=== PATIENT | male | born 1965 | race Caucasian/White ===

== ENCOUNTER 2018-10-30 16:29 | Inpatient (IN) ==
[2018-10-30 17:39] LABS: Basophils # (auto) 0.01 K/uL (0-0.2); Basophils % (auto) 0.2 %; Eosinophils # (auto) 0.16 K/uL (0-0.5); Eosinophils % (auto) 3.1 %; Hematocrit (blood only) 36.4 % (42-52); Hemoglobin 11.4 g/dL (14.0-18.0); Immature Granulocytes # (auto) 0.03 K/uL (0.00-0.02); Immature Granulocytes % (auto) 0.6 %; Lymphocytes # (auto) 1.36 K/uL (1.2-3.4); Lymphocytes % (auto) 26.4 %; Mean Corpuscular Hgb Conc 31.3 g/dL (32-36); Mean Corpuscular Volume 88.6 fL (80-100); Mean Platelet Volume 9.9 fL (7.4-10.4); Monocytes # (auto) 0.73 K/uL (0.11-0.59); Monocytes % (auto) 14.2 %; Neutrophils # (auto) 2.86 K/uL (1.4-6.5); Neutrophils % (auto) 55.5 %; Platelet Count 141 K/uL (130-400); RDW Coefficient of Variation 13.5 % (11.5-14.5); RDW Standard Deviation 43.8 fL (36.4-46.3); Red Blood Count 4.11 M/uL (4.7-6.1); White Blood Count 5.15 K/uL (4.8-10.8)
--- NOTE | 2018-10-30 17:40 | XRay Report ---
XR chest 1V portable HISTORY: 53 years-old Male Dyspnea acute shortness of breath COMPARISON: Chest radiograph 09/30/2015 TECHNIQUE: Portable AP view the chest FINDINGS: Cardiac silhouette is enlarged, unchanged. Prior median sternotomy. Left subclavian pacer is noted wi th leads overlying the expected locations of the right atrium and right ventricle. No pneumothorax. M ild pulmonary vascular congestion. Ill-defined left basilar opacities are noted. Degenerative changes of the shoulders and spine. IMPRESSION: 1. Cardiomegaly without overt pulmonary edema. 2. Left basilar opacities suggest atelectasis with pneumonitis considered less likely. The above report was generated using voice recognition software. It may contain grammatical, syntax o r spelling errors. Electronically signed by: Seymour Paige M.D. 10/30/2018 5:39 PM
--- NOTE | 2018-10-30 17:45 | Emergency Department Note ---
Entered by Veronica Gutierrez acting as a scribe for Artemio Mosley MD ED Provider Note CHIEF COMPLAINT: Shortness of breath/dyspnea HISTORY OF PRESENT ILLNESS: The patient came in by ambulance because of shortness of breath associated with chest pain, diaphoresis, fevers, headaches, dizziness, abdomen pain and decreased energy. The patient has lower leg swelling. He is coming from the [facility]. The staff was concerned because his blood pressure was 100/54 and his oxygen saturation was 94%. They were concerned about pneumonia. The patient is a 53 year old male who presents to the Emergency Room with complaints of constant shortness of breath that started last night. The patient reports his breathing is off and cannot walk because of shortness of breath and chest pain. He states he felt his chest pain twice last night and 4 times this morning. The patient reports his legs have been swollen since last night. He notes he feels weak and his back hurts. The patient states he fell down and hit his head. He reports he never had an episode of leg swelling like this before. He states his chest pain is worsened with movement and is better when resting. The patient states he has history of 2 hernia surgeries, CAD, and CABG X3. He reports he was the [facility] for alcohol because he was depressed. He states he has no thoughts of hurting himself. The patient reports he had a headache but no current one. He states he has no fever but feels sweaty. Pt denies LOC, headache, fevers, chills, visual changes, neck pain, nausea, vomiting, diarrhea, eye problems, loss of appetite, abdominal pain, melena, hematochezia, urinary symptoms, numbness, lymphadenopathy, rash, or other complaints. REVIEW OF SYSTEMS: See HPI for pertinent positives and negatives. A total of ten systems were reviewed and were otherwise negative. PMHx/PSHx: Depression Anxiety Bipolar disorder Diabetes Chest wall pain SOCIAL HISTORY: Patient lives at home. PHYSICAL EXAM: GENERAL: Awake, alert, well-appearing, in no distress HENT: Normocephalic, atraumatic. Oropharynx unremarkable. EYES: Normal conjunctiva. Sclera non-icteric. NECK: Inspection normal. Non-tender. Supple. No nuchal rigidity. FROM. No masses. RESPIRATORY: Scattered bronchi. No wheezes. No rales. Normal respiratory effort. CARDIAC: Normal rate. Normal rhythm. No murmurs. No rubs. Extremities warm and well perfused. Pulses equal. No JVD. GI: Soft, non-distended. No tenderness to palpation. No rebound or guarding. No masses. RECTAL: Deferred. MUSCULOSKELETAL: Atraumatic. Chest examination reveals no tenderness. The back is symmetrical on inspection without obvious abnormality. There is no CVA tenderness to palpation. No joint edema. LOWER EXTREMITIES: Calves are equal size bilaterally and non-tender. 2+ edema, slightly worse on the left. No discoloration. NEURO: Normal sensorium. No sensory or motor deficits noted. SKIN: No rash or jaundice noted. EMERGENCY DEPARTMENT COURSE: 1652: Past medical records reviewed. The patient was evaluated in room B4B, and a complete history and physical examination were performed. 1841: I checked on the patient and updated him on results. I discussed coming in to the hospital and he is agreeable. 1909: I reviewed the patient's case with Dr. Malik, [facility] Hospitalist. He will evaluate the patient for further management. MEDICAL DECISION MAKING: Triage Nursing notes reviewed. The patient's presentation and history were concerning for SOB, CP and hx of CAD. Etiologies such as pneumonia, reactive airway disease, CHF, cardiac ischemia, pulmonary embolism, pneumothorax, COPD, musculoskeletal, infections, gastrointestinal, as well as others were entertained. The patient was evaluated. He had coarse breath sounds. He was complaining of feeling short of breath chest pain. He had leg swelling. He notes an allergy to IV dye. The patient had blood work performed. Ultrasound imaging did not reveal any evidence of DVTs. The patient has a chest x-ray that raised concerns for possible pneumonitis as well as cardiomegaly. The patient's BNP is mildly elevated. CBC was unremarkable. Troponin was within normal limits. Chemistry panel was unremarkable. The patient had cultures obtained. He was treated with IV ceftriaxone as he was already taking azithromycin. Patient was also given a dose of IV Lasix 40 mg. Given his complaints of chest pain and history of CAD and CABG he will need further evaluation in the hospital. Consultation was made with internal medicine. The patient was evaluated in the ER for further management. The patient had some mildly low blood pressure. He was given a fluid bolus. His rapid flu returned positive. He was started on Tamiflu. IMPRESSION: Shortness of breath Pneumonitis Substernal chest pain History of coronary artery disease and CABG Influenza PLAN: Admit The scribe's documentation has been prepared under my direction and personally reviewed by me in its entirety. I confirm that the note above accurately reflects all work, treatment, procedures, and medical decision making performed by me. Impression & Plan SOB (shortness of breath), Pneumonitis, Substernal chest pain, History of coronary artery disease, Hx of CABG, Influenza Past Med/Surg History Medical History Depression (Chronic) Anxiety (Chronic) Bipolar disorder (Chronic) Diabetes (Chronic) Chest wall pain (Acute) Pacemaker (Chronic) Surgical History Hx of CABG (Chronic) Family History Other Family history non-contributory Social History Current Living Situation: Other Current Living Situation Comment: lives at the [facility] for 3 weeks Feels Safe at Home: Yes Safety Concerns: Feels Safe At This Time Smoking Status: Former smoker Hx Alcohol Use: Yes (quit drinking 2 years ago) Hx Substance Use: No Beliefs That Will Affect Care: None Preferred Language: Libyan Communication Ability: Effective Results & Data Vital Signs Vital Signs - 24 hr 10/30/18 16:35 10/30/18 16:40 10/30/18 16:48 Temperature 36.7 C Temperature Source Oral Sepsis Recent Fever Within 48 Hours No Sepsis Action Taken by Nursing No Action Required Pulse Rate 69 72 76 Pulse Rate [Apical] Pulse Rhythm Regular Pulse Strength Normal Respiratory Rate 13 16 21 Respiratory Effort / Characteristics Non-Labored Respiratory Depth Normal Respiratory Pattern Regular Blood Pressure 112/62 112/62 Blood Pressure [Left Arm] Blood Pressure [Right Arm] Blood Pressure Mean 78 78 Blood Pressure Mean [Left Arm] Blood Pressure Mean [Right Arm] Blood Pressure Position Sitting Blood Pressure Position [Left Arm] Pulse Oximetry 96 98 Oxygen Delivery Method Room Air 10/30/18 16:50 10/30/18 17:00 10/30/18 17:01 Temperature Temperature Source Sepsis Recent Fever Within 48 Hours Sepsis Action Taken by Nursing Pulse Rate 74 84 Pulse Rate [Apical] Pulse Rhythm Pulse Strength Respiratory Rate 13 16 10 L Respiratory Effort / Characteristics Respiratory Depth Respiratory Pattern Blood Pressure 128/107 H Blood Pressure [Left Arm] Blood Pressure [Right Arm] Blood Pressure Mean 114 Blood Pressure Mean [Left Arm] Blood Pressure Mean [Right Arm] Blood Pressure Position Blood Pressure Position [Left Arm] Pulse Oximetry Oxygen Delivery Method 10/30/18 17:10 10/30/18 17:20 10/30/18 17:30 Temperature Temperature Source Sepsis Recent Fever Within 48 Hours Sepsis Action Taken by Nursing Pulse Rate Pulse Rate [Apical] Pulse Rhythm Pulse Strength Respiratory Rate 22 0 L 0 L Respiratory Effort / Characteristics Respiratory Depth Respiratory Pattern Blood Pressure 95/64 L Blood Pressure [Left Arm] Blood Pressure [Right Arm] Blood Pressure Mean 74 Blood Pressure Mean [Left Arm] Blood Pressure Mean [Right Arm] Blood Pressure Position Blood Pressure Position [Left Arm] Pulse Oximetry Oxygen Delivery Method 10/30/18 17:40 10/30/18 17:50 10/30/18 18:00 Temperature Temperature Source Sepsis Recent Fever Within 48 Hours Sepsis Action Taken by Nursing Pulse Rate Pulse Rate [Apical] Pulse Rhythm Pulse Strength Respiratory Rate 0 L 0 L 0 L Respiratory Effort / Characteristics Respiratory Depth Respiratory Pattern Blood Pressure Blood Pressure [Left Arm] Blood Pressure [Right Arm] Blood Pressure Mean Blood Pressure Mean [Left Arm] Blood Pressure Mean [Right Arm] Blood Pressure Position Blood Pressure Position [Left Arm] Pulse Oximetry Oxygen Delivery Method 10/30/18 18:10 10/30/18 18:20 10/30/18 18:30 Temperature Temperature Source Sepsis Recent Fever Within 48 Hours Sepsis Action Taken by Nursing Pulse Rate Pulse Rate [Apical] Pulse Rhythm Pulse Strength Respiratory Rate 0 L 0 L 0 L Respiratory Effort / Characteristics Respiratory Depth Respiratory Pattern Blood Pressure Blood Pressure [Left Arm] Blood Pressure [Right Arm] Blood Pressure Mean Blood Pressure Mean [Left Arm] Blood Pressure Mean [Right Arm] Blood Pressure Position Blood Pressure Position [Left Arm] Pulse Oximetry Oxygen Delivery Method 10/30/18 18:40 10/30/18 18:50 10/30/18 19:00 Temperature Temperature Source Sepsis Recent Fever Within 48 Hours Sepsis Action Taken by Nursing Pulse Rate Pulse Rate [Apical] Pulse Rhythm Pulse Strength Respiratory Rate 0 L 0 L 0 L Respiratory Effort / Characteristics Respiratory Depth Respiratory Pattern Blood Pressure Blood Pressure [Left Arm] Blood Pressure [Right Arm] Blood Pressure Mean Blood Pressure Mean [Left Arm] Blood Pressure Mean [Right Arm] Blood Pressure Position Blood Pressure Position [Left Arm] Pulse Oximetry 95 Oxygen Delivery Method 10/30/18 19:03 10/30/18 19:04 10/30/18 19:05 Temperature Temperature Source Sepsis Recent Fever Within 48 Hours Sepsis Action Taken by Nursing Pulse Rate Pulse Rate [Apical] 79 Pulse Rhythm Pulse Strength Respiratory Rate 66 H 20 Respiratory Effort / Characteristics Respiratory Depth Respiratory Pattern Blood Pressure 92/56 L Blood Pressure [Left Arm] Blood Pressure [Right Arm] 92/56 L Blood Pressure Mean 68 Blood Pressure Mean [Left Arm] Blood Pressure Mean [Right Arm] 68 Blood Pressure Position Blood Pressure Position [Left Arm] Pulse Oximetry 99 97 96 Oxygen Delivery Method Room Air Room Air 10/30/18 19:08 10/30/18 19:09 10/30/18 19:10 Temperature Temperature Source Sepsis Recent Fever Within 48 Hours Sepsis Action Taken by Nursing Pulse Rate 81 80 78 Pulse Rate [Apical] Pulse Rhythm Pulse Strength Respiratory Rate 14 15 10 L Respiratory Effort / Characteristics Respiratory Depth Respiratory Pattern Blood Pressure 89/57 L 106/67 Blood Pressure [Left Arm] 106/67 Blood Pressure [Right Arm] 89/57 L Blood Pressure Mean 67 80 Blood Pressure Mean [Left Arm] 80 Blood Pressure Mean [Right Arm] 67 Blood Pressure Position Blood Pressure Position [Left Arm] Pulse Oximetry 95 94 93 Oxygen Delivery Method 10/30/18 19:20 10/30/18 19:24 10/30/18 19:27 Temperature Temperature Source Sepsis Recent Fever Within 48 Hours Sepsis Action Taken by Nursing Pulse Rate 81 79 Pulse Rate [Apical] 77 Pulse Rhythm Pulse Strength Respiratory Rate 16 18 14 Respiratory Effort / Characteristics Respiratory Depth Respiratory Pattern Blood Pressure 97/63 L Blood Pressure [Left Arm] 97/63 L Blood Pressure [Right Arm] Blood Pressure Mean 74 Blood Pressure Mean [Left Arm] 74 Blood Pressure Mean [Right Arm] Blood Pressure Position Blood Pressure Position [Left Arm] Pulse Oximetry 95 95 94 Oxygen Delivery Method Room Air 10/30/18 19:30 10/30/18 19:31 10/30/18 19:40 Temperature Temperature Source Sepsis Recent Fever Within 48 Hours Sepsis Action Taken by Nursing Pulse Rate 81 77 77 Pulse Rate [Apical] Pulse Rhythm Pulse Strength Respiratory Rate 17 17 14 Respiratory Effort / Characteristics Respiratory Depth Respiratory Pattern Blood Pressure 87/54 L Blood Pressure [Left Arm] Blood Pressure [Right Arm] Blood Pressure Mean 65 Blood Pressure Mean [Left Arm] Blood Pressure Mean [Right Arm] Blood Pressure Position Blood Pressure Position [Left Arm] Pulse Oximetry 93 95 92 Oxygen Delivery Method 10/30/18 19:45 10/30/18 19:50 10/30/18 21:30 Temperature 36.5 C Temperature Source Oral Sepsis Recent Fever Within 48 Hours Sepsis Action Taken by Nursing Pulse Rate 77 81 Pulse Rate [Apical] 76 Pulse Rhythm Pulse Strength Respiratory Rate 10 L 14 22 Respiratory Effort / Characteristics Non-Labored Spontaneous Respiratory Depth Normal Respiratory Pattern Blood Pressure 98/60 L Blood Pressure [Left Arm] 102/58 L Blood Pressure [Right Arm] Blood Pressure Mean 72 Blood Pressure Mean [Left Arm] 72 Blood Pressure Mean [Right Arm] Blood Pressure Position Blood Pressure Position [Left Arm] Pulse Oximetry 93 95 Oxygen Delivery Method Room Air 10/30/18 21:40 10/30/18 22:52 Temperature 36.4 C L Temperature Source Oral Sepsis Recent Fever Within 48 Hours Sepsis Action Taken by Nursing Pulse Rate Pulse Rate [Apical] 75 Pulse Rhythm Pulse Strength Respiratory Rate 18 Respiratory Effort / Characteristics Non-Labored Spontaneous Non-Labored Respiratory Depth Normal Normal Respiratory Pattern Regular Blood Pressure Blood Pressure [Left Arm] 123/86 Blood Pressure [Right Arm] Blood Pressure Mean Blood Pressure Mean [Left Arm] 98 Blood Pressure Mean [Right Arm] Blood Pressure Position Blood Pressure Position [Left Arm] Lying Pulse Oximetry 91 Oxygen Delivery Method Room Air Room Air Home Medications Current Medication List: was personally reviewed by me Laboratory Data Attestation: I reviewed the patient's lab results. Result diagrams: 10/30/18 17:18 10/30/18 17:18 Lab Results 10/30/18 10/30/18 10/30/18 Range/Units 17:18 17:18 17:18 WBC 5.15 (4.8-10.8) K/uL RBC 4.11 L (4.7-6.1) M/uL Hgb 11.4 L (14.0-18.0) g/dL Hct 36.4 L (42-52) % MCV 88.6 (80-100) fL MCH 27.7 (25-34) pg MCHC 31.3 L (32-36) g/dL RDW Std Deviation 43.8 (36.4-46.3) fL RDW Coeff of Trung 13.5 (11.5-14.5) % Plt Count 141 (130-400) K/uL MPV 9.9 (7.4-10.4) fL Immature Gran % (Auto) 0.6 % Neut % (Auto) 55.5 % Lymph % (Auto) 26.4 % Butler % (Auto) 14.2 % Eos % (Auto) 3.1 % Baso % (Auto) 0.2 % Immature Gran # (Auto) 0.03 H (0.00-0.02) K/uL Neut # (Auto) 2.86 (1.4-6.5) K/uL Lymph # (Auto) 1.36 (1.2-3.4) K/uL Butler # (Auto) 0.73 H (0.11-0.59) K/uL Eos # (Auto) 0.16 (0-0.5) K/uL Baso # (Auto) 0.01 (0-0.2) K/uL PT 12.0 (9.0-12.0) Seconds INR 1.2 H (0.9-1.1) APTT 31.1 H (21.0-31.0) Seconds PTT Ratio 1.2 Sodium 139 (136-145) mmol/L Potassium 3.9 (3.5-5.1) mmol/L Chloride 103 (98-107) mmol/L Carbon Dioxide 32 (21-32) mmol/L Anion Gap 4.0 (3-11) BUN 31 H (7-18) mg/dl Creatinine 1.33 (0.6-1.4) mg/dl Est Cr Clr Drug Dosing 78.5 ml/min Est GFR ( Amer) 70.2 Est GFR (Non-Af Amer) 60.6 BUN/Creatinine Ratio 23.6 H (10-20) Glucose 83 (70-99) mg/dl POC Glucose (70-99) Calcium 8.5 (8.5-10.1) mg/dl Magnesium 1.6 L (1.8-2.4) mg/dl Total Bilirubin 0.2 (0.2-1) mg/dl AST 15 (15-37) U/L ALT 16 (12-78) U/L Alkaline Phosphatase 54 (45-117) U/L Troponin I 0.037 (0-0.045) ng/ml NT-Pro-B Natriuret Pep 967 H (0-900) pg/ml Total Protein 7.0 (6.4-8.2) gm/dl Albumin 3.5 (3.4-5.0) gm/dl Globulin 3.5 (2.5-4.0) gm/dl Albumin/Globulin Ratio 1.0 (0.9-2) Urine Color Urine Appearance (Clear) Urine pH (4.5-7.5) Ur Specific [place] (1.000-1.030) Urine Protein (Negative) Urine Glucose (UA) (Negative) Urine Ketones (Negative) Urine Blood (Negative) Urine Nitrite (Negative) Urine Bilirubin (Negative) Urine Urobilinogen (Negative) Ur Leukocyte Esterase (Negative) Influenza Type A Ag (Neg) Influenza Type A (PCR) (Neg) Influenza Type B Ag (Neg) Influenza Type B (PCR) (Neg) 10/30/18 10/30/18 10/30/18 Range/Units 19:05 21:50 23:00 WBC (4.8-10.8) K/uL RBC (4.7-6.1) M/uL Hgb (14.0-18.0) g/dL Hct (42-52) % MCV (80-100) fL MCH (25-34) pg MCHC (32-36) g/dL RDW Std Deviation (36.4-46.3) fL RDW Coeff of Trung (11.5-14.5) % Plt Count (130-400) K/uL MPV (7.4-10.4) fL Immature Gran % (Auto) % Neut % (Auto) % Lymph % (Auto) % Butler % (Auto) % Eos % (Auto) % Baso % (Auto) % Immature Gran # (Auto) (0.00-0.02) K/uL Neut # (Auto) (1.4-6.5) K/uL Lymph # (Auto) (1.2-3.4) K/uL Butler # (Auto) (0.11-0.59) K/uL Eos # (Auto) (0-0.5) K/uL Baso # (Auto) (0-0.2) K/uL PT (9.0-12.0) Seconds INR (0.9-1.1) APTT (21.0-31.0) Seconds PTT Ratio Sodium (136-145) mmol/L Potassium (3.5-5.1) mmol/L Chloride (98-107) mmol/L Carbon Dioxide (21-32) mmol/L Anion Gap (3-11) BUN (7-18) mg/dl Creatinine (0.6-1.4) mg/dl Est Cr Clr Drug Dosing ml/min Est GFR ( Amer) Est GFR (Non-Af Amer) BUN/Creatinine Ratio (10-20) Glucose (70-99) mg/dl POC Glucose 118 H (70-99) Calcium (8.5-10.1) mg/dl Magnesium (1.8-2.4) mg/dl Total Bilirubin (0.2-1) mg/dl AST (15-37) U/L ALT (12-78) U/L Alkaline Phosphatase (45-117) U/L Troponin I (0-0.045) ng/ml NT-Pro-B Natriuret Pep (0-900) pg/ml Total Protein (6.4-8.2) gm/dl Albumin (3.4-5.0) gm/dl Globulin (2.5-4.0) gm/dl Albumin/Globulin Ratio (0.9-2) Urine Color Yellow Urine Appearance Clear (Clear) Urine pH 5.0 (4.5-7.5) Ur Specific [place] 1.013 (1.000-1.030) Urine Protein Negative (Negative) Urine Glucose (UA) Negative (Negative) Urine Ketones Negative (Negative) Urine Blood Negative (Negative) Urine Nitrite Negative (Negative) Urine Bilirubin Negative (Negative) Urine Urobilinogen Negative (Negative) Ur Leukocyte Esterase Negative (Negative) Influenza Type A Ag Pos for Influ A A* (Neg) Influenza Type A (PCR) Neg for Influ A (Neg) Influenza Type B Ag Pos for Influ B A* (Neg) Influenza Type B (PCR) Neg for Influ B (Neg) Administered Medications Atorvastatin Calcium (Lipitor) 40 mg PO HS [facility] Stop: 11/29/18 21:39 Last Admin: 10/30/18 22:25 Dose: 40 mg Benztropine Mesylate (Cogentin) 0.5 mg PO BID ASHLEY Stop: 11/29/18 21:39 Last Admin: 10/30/18 22:25 Dose: 0.5 mg Chlorpromazine HCl (Thorazine) 100 mg PO Q8H PRN PRN Reason: Unknown Stop: 11/29/18 21:39 Last Admin: 10/30/18 22:57 Dose: 100 mg Diphenhydramine HCl (Benadryl) 25 mg PO Q8H PRN PRN Reason: Anxiety Stop: 11/29/18 23:21 Last Admin: 10/30/18 23:39 Dose: 25 mg Divalproex Sodium (Depakote Delay Release) 750 mg PO BID ASHLEY Stop: 11/29/18 21:39 Last Admin: 10/30/18 22:25 Dose: 750 mg Gabapentin (Neurontin) 600 mg PO TID ASHLEY Stop: 11/29/18 21:39 Last Admin: 10/30/18 22:26 Dose: 600 mg Sodium Chloride (Nss 1000ml) 1,000 mls @ 80 mls/hr IV .[id number] [facility] Stop: 10/31/18 21:39 Last Admin: 10/30/18 21:48 Dose: 80 mls/hr Insulin Aspart (Novolog Flexpen) 0 units SC ACHS ASHLEY Stop: 11/29/18 21:39 Last Admin: 10/30/18 22:20 Dose: Not Given Risperidone (Risperdal) 2 mg PO BID ASHLEY Stop: 11/29/18 21:39 Last Admin: 10/30/18 22:26 Dose: 2 mg Rivaroxaban (Xarelto) 20 mg PO HS [facility] Stop: 11/29/18 21:39 Last Admin: 10/30/18 22:26 Dose: 20 mg Sucralfate (Carafate Tab) 1 gm PO QID ASHLEY Stop: 11/29/18 21:39 Last Admin: 10/30/18 22:26 Dose: 1 gm Discontinued Medications Albuterol (Duoneb) 3 ml NEB NOW STA Stop: 10/30/18 18:45 Last Admin: 10/30/18 18:53 Dose: 3 ml Furosemide (Lasix) 40 mg IV NOW STA Stop: 10/30/18 18:39 Last Admin: 10/30/18 18:46 Dose: 40 mg Ceftriaxone Sodium (Rocephin) 1,000 mg in 50 mls @ 100 mls/hr IV NOW STA Stop: 10/30/18 19:07 Last Infusion: 10/30/18 19:12 Dose: 0 mls/hr Admin: 10/30/18 18:46 Dose: 100 mls/hr Sodium Chloride (Nss 1000ml) 500 mls @ 999 mls/hr IV .Q31M ONE Stop: 10/30/18 19:44 Last Infusion: 10/30/18 20:12 Dose: 0 mls/hr Admin: 10/30/18 19:26 Dose: 999 mls/hr Oseltamivir Phosphate (Tamiflu) 75 mg PO NOW STA Stop: 10/30/18 19:51 Last Admin: 10/30/18 20:12 Dose: 75 mg Imaging Data Radiologist's Impression: Radiology results as stated below per my review and the radiologist's interpretation: XR chest 1V portable HISTORY: 53 years-old Male Dyspnea acute shortness of breath COMPARISON: Chest radiograph 09/30/2015 TECHNIQUE: Portable AP view the chest FINDINGS: Cardiac silhouette is enlarged, unchanged. Prior median sternotomy. Left subclavian pacer is noted with leads overlying the expected locations of the right atrium and right ventricle. No pneumothorax. Mild pulmonary vascular congestion. Ill-defined left basilar opacities are noted. Degenerative changes of the shoulders and spine. IMPRESSION: 1. Cardiomegaly without overt pulmonary edema. 2. Left basilar opacities suggest atelectasis with pneumonitis considered less likely. The above report was generated using voice recognition software. It may contain grammatical, syntax or spelling errors. Electronically signed by: Seymour Paige M.D. 10/30/2018 5:39 PM BILATERAL LOWER EXTREMITY VENOUS DOPPLER HISTORY: Acute pain and swelling of the bilateral lower legs Dyspnea, leg swelling COMPARISON STUDY: None. FINDINGS: There is normal compressibility, flow, and augmentation within the bilateral lower extremity deep venous systems. IMPRESSION: No sonographic evidence of deep venous thrombosis within the right or left lower extremity. Electronically signed by: Seymour Paige M.D. 10/30/2018 6:08 PM ECG Data Attestation: I personally reviewed and interpreted this ECG as follows: Indication: SOB/dyspnea Rate (beats per minute): 75 Rhythm: sinus rhythm Findings: + other (Right axis deviation) and + nonspecific-ST abn; no PAC, no PVC, no ST depression and no ST elevation Blood Pressure Blood Pressure Findings: Normal blood pressure Blood Pressure Disposition: did not require urgent referral Discharge Plan Visit Data *Final* Discharge Date/Time: 10/30/18 21:00 Chief Complaint: Shortness of Breath/Dyspnea Stated Complaint: SOB, HEADACHE, ED Provider: Artemio Mosley Discharge Problem: SOB (shortness of breath), Pneumonitis, Substernal chest pain, History of coronary artery disease, Hx of CABG, Influenza Patient Disposition: Admitted As Inpatient Discharge Instructions Interventions: ED Discharge Assessment Last Done: 10/30/18 21:00 The scribe's documentation has been prepared under my direction and personally reviewed by me in its entirety. I confirm that the note above accurately reflects all work, treatment, procedures, and medical decision making performed by me.
[2018-10-30 17:53] LABS: INR 1.2 (0.9-1.1); Partial Thromboplastin Ratio 1.2; Partial Thromboplastin Time 31.1 Seconds (21.0-31.0)
[2018-10-30 17:55] LABS: Albumin Level 3.5 gm/dl (3.4-5.0); BUN Creatinine Ratio 23.6 (10-20); Calcium 8.5 mg/dl (8.5-10.1); Creatinine Clr Calc Pharmacy 78.5 ml/min; Est GFR (African American) 70.2; Est GFR (Non-African American) 60.6; Magnesium 1.6 mg/dl (1.8-2.4); Potassium 3.9 mmol/L (3.5-5.1)
[2018-10-30 18:01] LABS: Bilirubin,Total 0.2 mg/dl (0.2-1); Globulin 3.5 gm/dl (2.5-4.0); Troponin I 0.037 ng/ml (0-0.045)
--- NOTE | 2018-10-30 18:09 | Ultrasound Report ---
BILATERAL LOWER EXTREMITY VENOUS DOPPLER HISTORY: Acute pain and swelling of the bilateral lower legs Dyspnea, leg swelling COMPARISON STUDY: None. FINDINGS: There is normal compressibility, flow, and augmentation within the bilateral lower extremit y deep venous systems. IMPRESSION: No sonographic evidence of deep venous thrombosis within the right or left lower extremity. Electronically signed by: Seymour Paige M.D. 10/30/2018 6:08 PM
[2018-10-30] MEDS ORDERED: cefTRIAXone SODIUM 1,000 MG/50 ML BAG IV STA (18:38)
[2018-10-30] MEDS ORDERED: FUROSEMIDE 40 MG/4 ML VIAL IV STA (18:38)
[2018-10-30] MEDS ORDERED: ALBUT/IPRATROP 3MG/0.5MG NEB 3 ML VIAL NEB STA (18:44)
[2018-10-30] MEDS ORDERED: SODIUM CHLORIDE 0.9% 1000ML 500 ML IV ONE (19:14)
[2018-10-30] MEDS ORDERED: OSELTAMIVIR PHOSPHATE 75 MG CAP PO STA (19:50)
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
[2018-10-30 20:26] LABS: Influenza B virus by PCR Neg for Influ B (Neg)
[2018-10-30] MEDS ORDERED: GLUCOSE 40% GEL 15 GM TUBE PO PRN (21:40)
[2018-10-30] MEDS ORDERED: ACETAMINOPHEN 325 MG TAB PO PRN (21:40)
[2018-10-30] MEDS ORDERED: ALUMINUM/MAGNESIUM SUSP 30 ML UDC PO PRN (21:40)
[2018-10-30] MEDS ORDERED: RIVAROXABAN 20 MG TAB PO SCH (21:40)
[2018-10-30] MEDS ORDERED: GLUCOSE 10 TABS/TUBE PO PRN (21:40)
[2018-10-30] MEDS ORDERED: DEXTROSE 50% 50 ML SYRINGE IV PRN (21:40)
[2018-10-30] MEDS ORDERED: CARBOHYDRATES FOR HYPOGLYCEMIA PO PRN (21:40)
[2018-10-30] MEDS ORDERED: GLUCAGON FOR INJ 1 MG VIAL SQ PRN (21:40)
[2018-10-30] MEDS ORDERED: CHLORPROMAZINE HCL 100 MG TABLET PO PRN (21:40)
[2018-10-30] MEDS ORDERED: NITROGLYCERIN SL 0.4 MG/TAB TAB SL PRN (21:40)
[2018-10-30] MEDS ORDERED: ATORVASTATIN 40 MG TAB PO SCH (21:40)
[2018-10-30] MEDS: SODIUM CHLORIDE 0.9% 1000ML 1,000 ML IV SCH (21:48)
[2018-10-30] MEDS: INSULIN ASPART 100 UNITS/ML 3 ML PEN SC SCH (22:20)
[2018-10-30] MEDS: BENZTROPINE MESYLATE 0.5 MG TAB PO SCH (22:25)
[2018-10-30] MEDS: DIVALPROEX DELAY RELEASE 250 MG TABEC PO SCH (22:25)
[2018-10-30] MEDS: risperiDONE 2 MG TABLET PO SCH (22:26)
[2018-10-30] MEDS: SUCRALFATE 1 GM TAB PO SCH (22:26)
[2018-10-30] MEDS: GABAPENTIN 600 MG TAB PO SCH (22:26)
[2018-10-30 23:16] LABS: Appearance Urine Clear (Clear); Bilirubin Urine Negative (Negative); Color Urine Yellow; Glucose Urine UA Negative (Negative); Ketones Urine Negative (Negative); Leukocyte Esterase Urine Negative (Negative); Nitrite Urine Negative (Negative); Protein Urine Negative (Negative); Specific Gravity Urine 1.013 (1.000-1.030); Urobilinogen Urine Negative (Negative)
[2018-10-31 04:33] LABS: Basophils # (auto) 0.01 K/uL (0-0.2); Basophils % (auto) 0.2 %; Eosinophils # (auto) 0.13 K/uL (0-0.5); Eosinophils % (auto) 2.9 %; Hematocrit (blood only) 33.1 % (42-52); Hemoglobin 10.4 g/dL (14.0-18.0); Immature Granulocytes # (auto) 0.01 K/uL (0.00-0.02); Immature Granulocytes % (auto) 0.2 %; Lymphocytes # (auto) 1.23 K/uL (1.2-3.4); Lymphocytes % (auto) 27.8 %; Mean Corpuscular Hgb Conc 31.4 g/dL (32-36); Mean Platelet Volume 9.2 fL (7.4-10.4); Monocytes # (auto) 0.61 K/uL (0.11-0.59); Monocytes % (auto) 13.8 %; Neutrophils # (auto) 2.44 K/uL (1.4-6.5); Neutrophils % (auto) 55.1 %; Platelet Count 116 K/uL (130-400); RDW Coefficient of Variation 13.5 % (11.5-14.5); RDW Standard Deviation 43.8 fL (36.4-46.3); Red Blood Count 3.72 M/uL (4.7-6.1); White Blood Count 4.43 K/uL (4.8-10.8)
[2018-10-31 04:49] LABS: BUN Creatinine Ratio 25.1 (10-20); Calcium 7.9 mg/dl (8.5-10.1); Creatinine Clr Calc Pharmacy 90.6 ml/min; Est GFR (African American) 85.5; Est GFR (Non-African American) 73.8; Potassium 3.6 mmol/L (3.5-5.1)
[2018-10-31 05:03] LABS: Troponin I 0.052 ng/ml (0-0.045)
[2018-10-31] MEDS ORDERED: PNEUMOCOCCAL POLYSACCHARIDES 25 MCG/0.5 ML VIAL/SYR IM ONE (07:15)
[2018-10-31] MEDS ORDERED: PNEUMOCOCCAL ADMINISTRATION CHARGE ONE (07:15)
[2018-10-31] MEDS ORDERED: PERFLUTREN LIPID MICROSPHERE (DEFINITY) IV ONE (07:32)
[2018-10-31] MEDS: BENZTROPINE MESYLATE 0.5 MG TAB PO SCH (07:58)
[2018-10-31] MEDS: GABAPENTIN 600 MG TAB PO SCH ×2 (07:58→13:43)
[2018-10-31] MEDS: SUCRALFATE 1 GM TAB PO SCH ×2 (07:59→11:49)
[2018-10-31] MEDS: DIVALPROEX DELAY RELEASE 250 MG TABEC PO SCH (07:59)
--- NOTE | 2018-10-31 07:59 | Hospitalist Progress Note ---
Date of Service October 31, 2018 Assessment & Plan (1) Substernal chest pain: 53M here with nonspecific symptoms Chest pain rule out in light of significant past history of CAD, CABG, pacemaker troponin are low with increase but not significantly -Echo pending (2) History of coronary artery disease: Continue home medication including statin. Patient is not currently on an aspirin at home. will restart metoprolol. (3) Hx of CABG: (4) Influenza: Screen positive for AB, PCR negative. Given multiple comorbidities and presentation will empirically treat for flu with Tamiflu for total of 5 days. (5) Depression: Continue home meds including Abilify, benztropine, chlorpromazine, Celexa , Benadryl as needed, Depakote, risperidone. (6) Anxiety: As above (7) Bipolar disorder: As above (8) Diabetes: Hold home metformin, begin insulin sliding scale. A1c in the a.m. Continue gabapentin for diabetic neuropathy. (9) DVT prophylaxis: Continue Xarelto, SCDs. Physical Exam 2 Vital Signs (Past 24 Hours): Last Vital Signs Temp 36.7 C 10/31/18 03:19 Pulse 70 10/31/18 03:19 Resp 19 10/31/18 03:19 BP 119/80 10/31/18 03:19 Pulse Ox 92 10/31/18 03:19
[2018-10-31] MEDS: INSULIN ASPART 100 UNITS/ML 3 ML PEN SC SCH ×2 (08:02→11:48)
[2018-10-31] MEDS: risperiDONE 2 MG TABLET PO SCH (08:15)
[2018-10-31 08:36] LABS: Influenza A virus by PCR Neg for Influ A (Neg)
[2018-10-31] MEDS ORDERED: POTASSIUM CHLORIDE 10 MEQ TABCR PO SCH (09:00)
[2018-10-31] MEDS ORDERED: ARIPiprazole 15 MG TAB PO SCH (09:00)
[2018-10-31] MEDS ORDERED: risperiDONE 1 MG TABLET PO SCH (09:00)
[2018-10-31] MEDS ORDERED: OSELTAMIVIR PHOSPHATE 75 MG CAP PO SCH (09:00)
[2018-10-31] MEDS ORDERED: PANTOprazole 40 MG TAB PO SCH (09:00)
[2018-10-31] MEDS ORDERED: CITALOPRAM 40 MG TAB PO SCH (09:00)
[2018-10-31] MEDS ORDERED: TAMSULOSIN HCL 0.4 MG CAP PO SCH (09:00)
[2018-10-31] MEDS: SODIUM CHLORIDE 0.9% 1000ML 1,000 ML IV SCH (11:26)
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
[2018-11-01 05:55] LABS: Estimated Average Glucose 186 mg/dl
== END 2018-10-31 16:20 | DRG 313 ==
LOC: ED 16:29 → 2E 20:27 → SUATTDRO 20:27 → 2E 21:00

== ENCOUNTER 2018-11-03 14:25 | Inpatient (IN) ==
[2018-11-03 15:13] LABS: Basophils # (auto) 0.01 K/uL (0-0.2); Basophils % (auto) 0.2 %; Eosinophils # (auto) 0.15 K/uL (0-0.5); Eosinophils % (auto) 3.5 %; Hematocrit (blood only) 39.1 % (42-52); Hemoglobin 12.5 g/dL (14.0-18.0); Lymphocytes # (auto) 0.87 K/uL (1.2-3.4); Lymphocytes % (auto) 20.3 %; Mean Corpuscular Volume 89.1 fL (80-100); Mean Platelet Volume 9.3 fL (7.4-10.4); Monocytes # (auto) 0.55 K/uL (0.11-0.59); Monocytes % (auto) 12.9 %; Neutrophils % (auto) 63.1 %; Platelet Count 163 K/uL (130-400); RDW Coefficient of Variation 13.3 % (11.5-14.5); RDW Standard Deviation 43.5 fL (36.4-46.3); Red Blood Count 4.39 M/uL (4.7-6.1); White Blood Count 4.28 K/uL (4.8-10.8)
--- NOTE | 2018-11-03 15:13 | XRay Report ---
XR chest 1V portable CLINICAL HISTORY: weakness COMPARISON STUDY: 10/30/2018 FINDINGS: There are postsurgical changes of midline sternotomy. The heart is mildly enlarged. There i s a left subclavian dual-chamber central venous pacemaker present. There is mild pulmonary venous hyp ertension. There is no overt edema. There are persistent left basilar opacities, likely atelectatic.[ IMPRESSION: 1. Cardiomegaly and pulmonary venous hypertension 2. Persistent left basilar opacities, likely atelectatic although an infectious/inflammatory process could appear similar Electronically signed by: Francisco Christine M.D. 11/03/2018 3:12 PM
[2018-11-03 15:29] LABS: Albumin Level 3.9 gm/dl (3.4-5.0); BUN Creatinine Ratio 21.8 (10-20); Calcium 9.1 mg/dl (8.5-10.1); Creatinine Clr Calc Pharmacy 103.7 ml/min; Est GFR (African American) 99.2; Est GFR (Non-African American) 85.5; Potassium 3.7 mmol/L (3.5-5.1)
--- NOTE | 2018-11-03 15:32 | CT Scan Report ---
CT head/brain wo con CLINICAL HISTORY: Acute change in mental status COMPARISON STUDY: No previous studies for comparison. TECHNIQUE: Axial CT of the brain is performed from the vertex to the skull base. IV contrast was not administered for this examination. A dose lowering technique was utilized adhering to the principles of ALARA. CT DOSE: 614.27 mGy.cm FINDINGS: No intra or extra-axial mass lesions are visualized. There is no CT evidence of acute cortical infarc tion. There is no evidence of midline shift. There is no acute hemorrhage. No calvarial fractures ar e visualized. There are patchy white matter hypodensities likely on a small vessel basis. There is an old left occi pital infarct in the PICA distribution. There is mild particular prominence, likely secondary to volume loss. There is no evidence of acute sinusitis IMPRESSION: 1. Old left cerebellar infarct. 2. No acute intracranial findings. Electronically signed by: Francisco Christine M.D. 11/03/2018 3:31 PM
[2018-11-03 15:39] LABS: Albumin Globulin Ratio 1.1 (0.9-2); Bilirubin,Total 0.4 mg/dl (0.2-1); Globulin 3.7 gm/dl (2.5-4.0); Total Protein 7.6 gm/dl (6.4-8.2); Troponin I 0.045 ng/ml (0-0.045)
--- NOTE | 2018-11-03 17:10 | Emergency Department Note ---
Entered by Brandon Manuel acting as a scribe for History of Present Illness General Chief complaint: Weakness Stated complaint: Weakness Source: patient and other (Nurse) History of Present Illness Provider complaint: LE numbness/falls Onset (ago): day(s) (4) Location: lower extremity, left and right Pain Consistency: + intermittent Quality: + other (weakness/numbness) Associated symptoms: + weakness and + other (Abd pain); no nausea/vomiting This history is limited secondary to altered mental status. The patient is a 53 year old male who presents to the Emergency Room from [place] for lower extremity numbness. He notes that his lower extremities have been becoming intermittently numb and his "knees give out" and he falls. Nursing staff adds that the note from [facility] does state he is experiencing frequent falls and has hit his head. The patient presented to the Emergency Department 4 days ago and was sent to the [facility] for suicidal ideation. The patient confirms he is still actively suicidal at this time. He also complains of abdominal pain at this time but denies any nausea, vomiting, or diarrhea. Per [facility] note he is on Xarelto for atrial fibrillation. Patient does admit that he still wants to kill himself and he notes he would use any means possible. Home Medications Home Medications Medication Instructions Recorded Confirmed Type acetaminophen [Tylenol] 650 mg PO Q4H PRN 10/30/18 11/03/18 History atorvastatin 40 mg PO 10/30/18 11/03/18 History benztropine 0.5 mg PO BID 10/30/18 11/03/18 History chlorpromazine 100 mg PO Q8H PRN 10/30/18 11/03/18 History citalopram [Celexa] 40 mg PO QAM 10/30/18 11/03/18 History diphenhydramine HCl [Benadryl] 25 mg PO Q8H PRN 10/30/18 11/03/18 History omeprazole 40 mg PO QAM 10/30/18 11/03/18 History potassium chloride 10 meq PO M 10/30/18 11/03/18 History risperidone [Risperdal] 2 mg PO BID 10/30/18 11/03/18 History rivaroxaban 20 mg PO 10/30/18 11/03/18 History sucralfate 1 g PO QID 10/30/18 11/03/18 History tamsulosin 0.4 mg PO QAM 10/30/18 11/03/18 History metformin 1,000 mg PO BID #0 tab 10/31/18 11/03/18 Rx metoprolol succinate 50 mg PO HS #0 tab 10/31/18 11/03/18 Rx Mylanta 30 ml PO QID PRN 11/03/18 History diphenhydramine HCl 50 mg PO Q8H PRN 11/03/18 11/03/18 History furosemide 20 mg PO QAM 11/03/18 11/03/18 History magnesium hydroxide [Milk of 30 ml PO DAILY PRN 11/03/18 11/03/18 History Magnesia] metoprolol succinate 100 mg PO HS 11/03/18 11/03/18 History Allergies Allergy/AdvReac Type Severity Reaction Status Date / Time IV CONTRAST Allergy Severe PASSED OUT Uncoded 10/30/18 18:22 Past Med/Surg History Medical History Depression (Chronic) Anxiety (Chronic) Bipolar disorder (Chronic) Diabetes (Chronic) Chest wall pain (Acute) Pacemaker (Chronic) Surgical History Hx of CABG (Chronic) Family History Other Family history non-contributory Social History marital status: Single Current Living Situation: Other Current Living Situation Comment: lives at [facility] for 3 weeks Feels Safe at Home: Yes Smoking Status: Former smoker Hx Alcohol Use: Yes (quit drinking 2 years ago) Hx Substance Use: No Beliefs That Will Affect Care: None Preferred Language: Maltese Review of Systems See HPI for pertinent positives & negatives. and A total of 10 systems reviewed and were otherwise negative Physical Exam Vital Signs Vital Signs - 24 hr 11/03/18 14:14 11/03/18 14:50 11/03/18 15:47 Temperature 36.6 C Temperature Source Oral Sepsis Recent Fever Within 48 Hours No Sepsis New/Unexplained Change in Mental Status No Sepsis Action Taken by Nursing No Action Required Pulse Rate 70 Pulse Rate [Right Finger] 70 Pulse Rhythm Regular Pulse Strength Normal Respiratory Rate 20 16 Respiratory Effort / Characteristics Non-Labored Spontaneous Respiratory Depth Normal Respiratory Pattern Regular Blood Pressure 135/104 H Blood Pressure [Left Arm] 150/107 H Blood Pressure Mean 114 Blood Pressure Mean [Left Arm] 121 Blood Pressure Position Lying Blood Pressure Position [Left Arm] Lying Pulse Oximetry 96 97 98 Oxygen Delivery Method Room Air Room Air 11/03/18 16:40 Temperature Temperature Source Sepsis Recent Fever Within 48 Hours Sepsis New/Unexplained Change in Mental Status Sepsis Action Taken by Nursing Pulse Rate Pulse Rate [Right Finger] 70 Pulse Rhythm Pulse Strength Respiratory Rate 17 Respiratory Effort / Characteristics Respiratory Depth Respiratory Pattern Blood Pressure Blood Pressure [Left Arm] 154/107 H Blood Pressure Mean Blood Pressure Mean [Left Arm] 122 Blood Pressure Position Blood Pressure Position [Left Arm] Pulse Oximetry 96 Oxygen Delivery Method GENERAL: Sitting up in bed, disheveled, mumbling, chronically ill appearing. EYE EXAM: normal conjunctiva. PERRL and EOM's grossly intact. OROPHARYNX: no exudate, no erythema, lips, buccal mucosa, and tongue normal and mucous membranes are moist NECK: supple, no nuchal rigidity, no adenopathy, non-tender LUNGS: Clear to auscultation. Normal chest wall mechanics HEART: no murmurs, S1 normal and S2 normal ABDOMEN: abdomen soft, non-tender, normo-active bowel, sounds, no masses, no rebound or guarding. BACK: Back is symmetrical on inspection and there is no deformity, no midline tenderness, no CVA tenderness. SKIN: no rashes and no bruising UPPER EXTREMITIES: upper extremities are grossly normal. LOWER EXTREMITIES: No pitting edema. NEURO EXAM: Awake, not oriented to person or year. Following commands. Cranial nerves II-XII intact. No weakness of upper or lower extremities. Tremor of bilateral upper extremities. Course ED COURSE: Vital signs were reviewed and showed hypertension. The patients medical record was reviewed The above diagnostic studies were performed and reviewed. ED treatments and interventions as stated above. 1444: The patient was evaluated in room C9. A complete history and physical examination was performed. 1613: Upon reevaluation, the patient is resting in bed. I discussed my findings with the patient and he understands and agrees with the treatment plan. Based on the patients age, coexisting illnesses, exam and lab findings the decision to treat as an inpatient was made. The patient remained stable while under my care. The patient will be evaluated for further management. 1606: I reviewed the patient's case with Dr. Óscar Marrufo [facility] Hospitalist. He will evaluate the patient for further management. Administered Medications Discontinued Medications Sodium Chloride (Nss 1000ml) 1,000 mls @ 999 mls/hr IV .Q1H1M ASHLEY Stop: 11/03/18 16:00 Last Infusion: 11/03/18 16:21 Dose: 0 mls/hr Admin: 11/03/18 15:10 Dose: 999 mls/hr Medical Decision Making Differential Diagnosis Differential Diagnosis includes: Differential includes acute coronary syndrome, myocardial infarction, CVA, TIA, anemia, infection, pneumonia, UTI, pyelonephritis, poor nutrition, dehydration, electrolyte disturbance,hypoglycemia. Medical Records Attestation: I reviewed the patient's medical records. Home Medications Current Medication List: was personally reviewed by me Laboratory Data Attestation: I reviewed the patient's lab results. Result diagrams: 11/03/18 15:04 11/03/18 15:04 Lab Results 11/03/18 11/03/18 11/03/18 Range/Units 15:04 15:04 15:14 WBC 4.28 L (4.8-10.8) K/uL RBC 4.39 L (4.7-6.1) M/uL Hgb 12.5 L (14.0-18.0) g/dL Hct 39.1 L (42-52) % MCV 89.1 (80-100) fL MCH 28.5 (25-34) pg MCHC 32.0 (32-36) g/dL RDW Std Deviation 43.5 (36.4-46.3) fL RDW Coeff of Trung 13.3 (11.5-14.5) % Plt Count 163 (130-400) K/uL MPV 9.3 (7.4-10.4) fL Immature Gran % (Auto) 0.0 % Neut % (Auto) 63.1 % Lymph % (Auto) 20.3 % Coleman % (Auto) 12.9 % Eos % (Auto) 3.5 % Baso % (Auto) 0.2 % Immature Gran # (Auto) 0.00 (0.00-0.02) K/uL Neut # (Auto) 2.70 (1.4-6.5) K/uL Lymph # (Auto) 0.87 L (1.2-3.4) K/uL Coleman # (Auto) 0.55 (0.11-0.59) K/uL Eos # (Auto) 0.15 (0-0.5) K/uL Baso # (Auto) 0.01 (0-0.2) K/uL Sodium 141 (136-145) mmol/L Potassium 3.7 (3.5-5.1) mmol/L Chloride 105 (98-107) mmol/L Carbon Dioxide 30 (21-32) mmol/L Anion Gap 6.0 (3-11) BUN 22 H (7-18) mg/dl Creatinine 1.00 (0.6-1.4) mg/dl Est Cr Clr Drug Dosing 103.7 ml/min Est GFR ( Amer) 99.2 Est GFR (Non-Af Amer) 85.5 BUN/Creatinine Ratio 21.8 H (10-20) Glucose 121 H (70-99) mg/dl POC Lactic Acid Leonard 1.62 (0.90-1.70) mmol/L Calcium 9.1 (8.5-10.1) mg/dl Total Bilirubin 0.4 (0.2-1) mg/dl AST 19 (15-37) U/L ALT 18 (12-78) U/L Alkaline Phosphatase 63 (45-117) U/L Troponin I 0.045 (0-0.045) ng/ml Total Protein 7.6 (6.4-8.2) gm/dl Albumin 3.9 (3.4-5.0) gm/dl Globulin 3.7 (2.5-4.0) gm/dl Albumin/Globulin Ratio 1.1 (0.9-2) TSH 6.560 H (0.300-4.500) uIu/ml Imaging Data Attestation: I personally reviewed and interpreted this imaging study as follows : Radiologist's Impression: CT head/brain wo con CLINICAL HISTORY: Acute change in mental status COMPARISON STUDY: No previous studies for comparison. TECHNIQUE: Axial CT of the brain is performed from the vertex to the skull base. IV contrast was not administered for this examination. A dose lowering technique was utilized adhering to the principles of ALARA. CT DOSE: 614.27 mGy.cm FINDINGS: No intra or extra-axial mass lesions are visualized. There is no CT evidence of acute cortical infarction. There is no evidence of midline shift. There is no acute hemorrhage. No calvarial fractures are visualized. There are patchy white matter hypodensities likely on a small vessel basis. There is an old left occipital infarct in the PICA distribution. There is mild particular prominence, likely secondary to volume loss. There is no evidence of acute sinusitis IMPRESSION: 1. Old left cerebellar infarct. 2. No acute intracranial findings. Electronically signed by: Francisco Christine M.D. 11/03/2018 3:31 PM XR chest 1V portable CLINICAL HISTORY: weakness COMPARISON STUDY: 10/30/2018 FINDINGS: There are postsurgical changes of midline sternotomy. The heart is mildly enlarged. There is a left subclavian dual-chamber central venous pacemaker present. There is mild pulmonary venous hypertension. There is no overt edema. There are persistent left basilar opacities, likely atelectatic.[ IMPRESSION: 1. Cardiomegaly and pulmonary venous hypertension 2. Persistent left basilar opacities, likely atelectatic although an infectious/ inflammatory process could appear similar Electronically signed by: Francisco Christine M.D. 11/03/2018 3:12 PM ECG Data Attestation: I personally reviewed and interpreted this ECG as follows: Indication: weakness Rate (beats per minute): 70 Rhythm: other (atrial paced) Findings: + other (Normal axis) and + ST depression (Non-specific ST depression in the anterior and lateral) Blood Pressure Blood Pressure Findings: Elevated blood pressure Blood Pressure Disposition: further management by hospitalist DAVID Narrative Patient is a 53-year-old male who presents the ER [facility] and confusion. Patient is not oriented to place or time but does know his name. He does have visual hallucinations. He admits to suicidal thoughts and notes that he would kill himself in any way possible. He denies any other complaints at this time. Vitals do show mild hypertension. Labs show mild leukopenia at 4.2. Hemoglobin was 12.5. BMP along with LFTs troponin TSH show a slightly elevated TSH. CT head was negative. Patient was updated bedside. Discussed with the hospitalist patient was admitted for altered mental status with suicidal ideations. Remained on one-to-one while in the ER. Impression & Plan Altered mental status, Hallucinations, Suicidal ideation Discharge Plan Visit Data Chief Complaint: Weakness Stated Complaint: Weakness ED Provider: Salvatore Mohr Discharge Problem: Altered mental status, Hallucinations, Suicidal ideation Patient Disposition: Being Evaluated by Hospitalist Forms Stand Alone Forms: My [facility] Prescriptions Prescriptions: No Action atorvastatin 40 mg Tablet 40 mg PO HS RF: 0 acetaminophen [Tylenol] 325 mg Tablet 650 mg PO Q4H PRN (Reason: Pain) RF: 0 benztropine 0.5 mg Tablet 0.5 mg PO BID RF: 0 citalopram [Celexa] 40 mg Tablet 40 mg PO QAM RF: 0 chlorpromazine 100 mg Tablet 100 mg PO Q8H PRN (Reason: Unknown) RF: 0 sucralfate 1 gram Tablet 1 g PO QID RF: 0 potassium chloride 10 mEq Tablet Extended Release 10 meq PO QAM RF: 0 risperidone [Risperdal] 2 mg Tablet 2 mg PO BID RF: 0 tamsulosin 0.4 mg Capsule 0.4 mg PO QAM RF: 0 diphenhydramine HCl [Benadryl] 25 mg Capsule 25 mg PO Q8H PRN (Reason: Unknown) RF: 0 omeprazole 20 mg Capsule,Delayed Release(Dr/Ec) 40 mg PO QAM RF: 0 rivaroxaban 20 mg Tablet 20 mg PO HS RF: 0 metoprolol succinate 50 mg Tablet Extended Release 24 Hr 50 mg PO HS Qty: 0 RF: 0 metformin 500 mg Tablet Extended Release 24 Hr 1,000 mg PO BID Qty: 0 RF: 0 metoprolol succinate 100 mg Tablet Extended Release 24 Hr 100 mg PO HS RF: 0 furosemide 20 mg Tablet 20 mg PO QAM RF: 0 diphenhydramine HCl 50 mg Capsule 50 mg PO Q8H PRN (Reason: Unknown) RF: 0 magnesium hydroxide [Milk of Magnesia] 400 mg/5 mL Suspension 30 ml PO DAILY PRN (Reason: Constipation) RF: 0 Mylanta 30 ml PO QID PRN (Reason: Indigestion) RF: 0 Referrals Referrals: [facility] [Primary Care Provider] - The scribe's documentation has been prepared under my direction and personally reviewed by me in its entirety. I confirm that the note above accurately reflects all work, treatment, procedures, and medical decision making performed by me.
--- NOTE | 2018-11-03 18:47 | History & Physical Report ---
Date of Service November 03, 2018 Assessment & Plan (1) Weakness: intermittently in the legs strength is 4 out of 5 on examination while in bed will ask PT/OT to evaluate (2) Low back pain: chronic issue cannot get MRI due to pacer CT lumbar spine shows degenerative disc disease, mild spinal canal narrowing (3) Falls: fell twice today and fell yesterday as well whenever he fell he was NOT using his walker like he is supposed to use no obvious injuries, does not complain of any severe pain of note, his Lasix, HCTZ and lisinopril held on discharge last admission trying to prevent any orthostatic hypotension (4) Altered mental status: not the greatest historian unsure of his baseline given his bipolar disorder and multiple medications will ask psychiatry to evaluate medications currently at the [facility] no clear medical etiology, labs stable, CT head normal (5) SOB (shortness of breath): minimal, no hypoxia was tested for influenza last admission, PCR was negative (6) Hx of CABG: no chest pain was ruled out for ACS on last admission on 10/31 continue Lipitor, metoprolol (7) Afib: rates controlled, continue Metoprolol on Xarelto (8) DM type 2 (diabetes mellitus, type 2): diabetic diet hold Metformin Novolog SS History of Present Illness Chief Complaint: I fell while waiting in line for food Primary Care Provider: Psychiatric [facility] 53 yo male with history of bipolar disorder, currently admitted inpatient psychiatry at the [facility]. Recently observed at [facility] for chest pain on 10/31/18 that was determined to be non-cardiac in nature. He was noted to weak on that admission, considered to have some side effects from chronic anti-psychotics consistent with parkinsonian tremors, perhaps tardive dyskinesia. It was recommended that the patient get some physical therapy. He typically uses a walker. The HPI was limited because the patient was difficult to understand, there were gaps in his story. Apparently he fell twice today while standing in line to get food. At the time he was not using his rolling walker which he knows he should use. Not sure why he did not have it with him. He denies having any acute injuries due to the fall. He said that his lower back hurt a little more than normal after the second fall, he says he always has some chronic low back pain. No known history of spinal stenosis to his knowledge. No radicular pain down either leg. He denies having chest pain since discharge three days ago. He denies any dyspnea, denies nausea, vomiting, diarrhea or constipation. Labs were unremarkable and imaging showed no acute injuries. He was too weak to return to the [facility] so we were asked to see for admission. Allergies Allergy/AdvReac Type Severity Reaction Status Date / Time IV CONTRAST Allergy Severe PASSED OUT Uncoded 10/30/18 18:22 Home Medications Home Medications Medication Instructions Recorded Confirmed Type acetaminophen [Tylenol] 650 mg PO Q4H PRN 10/30/18 11/03/18 History atorvastatin 40 mg PO HS 10/30/18 11/03/18 History benztropine 0.5 mg PO BID 10/30/18 11/03/18 History chlorpromazine 100 mg PO Q8H PRN 10/30/18 11/03/18 History citalopram [Celexa] 40 mg PO QAM 10/30/18 11/03/18 History diphenhydramine HCl [Benadryl] 25 mg PO Q8H PRN 10/30/18 11/03/18 History omeprazole 40 mg PO QAM 10/30/18 11/03/18 History potassium chloride 10 meq PO QAM 10/30/18 11/03/18 History risperidone [Risperdal] 2 mg PO BID 10/30/18 11/03/18 History rivaroxaban 20 mg PO HS 10/30/18 11/03/18 History sucralfate 1 g PO QID 10/30/18 11/03/18 History tamsulosin 0.4 mg PO QAM 10/30/18 11/03/18 History metformin 1,000 mg PO BID #0 tab 10/31/18 11/03/18 Rx metoprolol succinate 50 mg PO HS #0 tab 10/31/18 11/03/18 Rx Mylanta 30 ml PO QID PRN 11/03/18 History diphenhydramine HCl 50 mg PO Q8H PRN 11/03/18 11/03/18 History furosemide 20 mg PO QAM 11/03/18 11/03/18 History magnesium hydroxide [Milk of 30 ml PO DAILY PRN 11/03/18 11/03/18 History Magnesia] metoprolol succinate 100 mg PO HS 11/03/18 11/03/18 History Past Med/Surg History Medical History Depression (Chronic) Anxiety (Chronic) Bipolar disorder (Chronic) Diabetes (Chronic) Chest wall pain (Acute) Pacemaker (Chronic) Surgical History Hx of CABG (Chronic) Family History Other Family history non-contributory Social History marital status: Single Current Living Situation: Alone Current Living Situation Comment: lives at the 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 Review of Systems All systems reviewed & are unremarkable except as noted in HPI & below Physical Exam 2 Vital Signs (Past 24 Hours): Last Vital Signs Temp 36.6 C 11/03/18 14:14 Pulse 76 11/03/18 18:03 Resp 18 11/03/18 18:03 BP 147/101 H 11/03/18 18:03 Pulse Ox 97 11/03/18 18:03 Constitutional: WD/WN, vitals as above + obese Eyes: PERRL, conjunctivae normal, anicteric sclerae ENMT: external ear and nose normal, oropharynx normal Neck: trachea midline, no thyromegaly Respiratory: normal respiratory effort, lungs clear to auscultation Cardiovascular: RRR, no murmur, no edema Gastrointestinal (Abdomen): normal bowel sounds, soft, nontender, no hepatosplenomegaly Musculoskeletal: Head/Neck/Chest: normocephalic, head atraumatic and neck supple Spine: + limited thoraco-lumbar ROM Extremities: extremities normal to inspection and + abnormal strength (4 out of 5 strength in legs bilateral, left plow mechanic strength 4 out of 5) Skin: no rashes, warm and dry Neurologic: patellar DTR's 2+ bilat, sensation intact and PERRL, EOMI, accommodation nl, no face palsy, no dysarthria normal touch/pain/ proprioception Psychiatric: Orientation: alert and oriented x 3 Apperance: + disheveled Eye Contact: good eye contact Speech: normal rate/rhythm/volume of speech Affect: + flat affect Lymphatic: no cervical or axillary lymphadenopathy Results & Data Laboratory Results Laboratory Results - last 24 hr 11/03/18 11/03/18 11/03/18 15:04 15:04 15:14 WBC 4.28 L RBC 4.39 L Hgb 12.5 L Hct 39.1 L MCV 89.1 MCH 28.5 MCHC 32.0 RDW Std Deviation 43.5 RDW Coeff of Turng 13.3 Plt Count 163 MPV 9.3 Immature Gran % (Auto) 0.0 Neut % (Auto) 63.1 Lymph % (Auto) 20.3 H[place] % (Auto) 12.9 Eos % (Auto) 3.5 Baso % (Auto) 0.2 Immature Gran # (Auto) 0.00 Neut # (Auto) 2.70 Lymph # (Auto) 0.87 L [place] # (Auto) 0.55 Eos # (Auto) 0.15 Baso # (Auto) 0.01 Sodium 141 Potassium 3.7 Chloride 105 Carbon Dioxide 30 Anion Gap 6.0 BUN 22 H Creatinine 1.00 Est Cr Clr Drug Dosing 103.7 Est GFR ( Amer) 99.2 Est GFR (Non-Af Amer) 85.5 BUN/Creatinine Ratio 21.8 H Glucose 121 H POC Glucose POC Lactic Acid Leonard 1.62 Calcium 9.1 Total Bilirubin 0.4 AST 19 ALT 18 Alkaline Phosphatase 63 Troponin I 0.045 Total Protein 7.6 Albumin 3.9 Globulin 3.7 Albumin/Globulin Ratio 1.1 TSH 6.560 H Urine Color Urine Appearance Urine pH Ur Specific [place] Urine Protein Urine Glucose (UA) Urine Ketones Urine Blood Urine Nitrite Urine Bilirubin Urine Urobilinogen Ur Leukocyte Esterase Nasal Screen MRSA (PCR) Urine Opiates Screen Ur Methadone, Qual Urine Barbiturates Ur Phencyclidine (PCP) U Amphetamin/Meth Scrn MDMA (Ecstasy) Screen U Benzodiazepines Scrn Ur Cocaine Metabolite U Marijuana (THC) Screen 11/03/18 11/03/18 11/03/18 19:38 20:07 Unknown WBC RBC Hgb Hct MCV MCH MCHC RDW Std Deviation RDW Coeff of Trung Plt Count MPV Immature Gran % (Auto) Neut % (Auto) Lymph % (Auto) [place] % (Auto) Eos % (Auto) Baso % (Auto) Immature Gran # (Auto) Neut # (Auto) Lymph # (Auto) [place] # (Auto) Eos # (Auto) Baso # (Auto) Sodium Potassium Chloride Carbon Dioxide Anion Gap BUN Creatinine Est Cr Clr Drug Dosing Est GFR ( Amer) Est GFR (Non-Af Amer) BUN/Creatinine Ratio Glucose POC Glucose 107 H POC Lactic Acid Leonard Calcium Total Bilirubin AST ALT Alkaline Phosphatase Troponin I Total Protein Albumin Globulin Albumin/Globulin Ratio TSH Urine Color Yellow Urine Appearance Clear Urine pH 7.5 Ur Specific [place] 1.023 Urine Protein Negative Urine Glucose (UA) Negative Urine Ketones Trace H Urine Blood Negative Urine Nitrite Negative Urine Bilirubin Negative Urine Urobilinogen Negative Ur Leukocyte Esterase Negative Nasal Screen MRSA (PCR) Negative Urine Opiates Screen Ur Methadone, Qual Urine Barbiturates Ur Phencyclidine (PCP) U Amphetamin/Meth Scrn MDMA (Ecstasy) Screen U Benzodiazepines Scrn Ur Cocaine Metabolite U Marijuana (THC) Screen 11/03/18 Unknown WBC RBC Hgb Hct MCV MCH MCHC RDW Std Deviation RDW Coeff of Trung Plt Count MPV Immature Gran % (Auto) Neut % (Auto) Lymph % (Auto) [place] % (Auto) Eos % (Auto) Baso % (Auto) Immature Gran # (Auto) Neut # (Auto) Lymph # (Auto) [place] # (Auto) Eos # (Auto) Baso # (Auto) Sodium Potassium Chloride Carbon Dioxide Anion Gap BUN Creatinine Est Cr Clr Drug Dosing Est GFR ( Amer) Est GFR (Non-Af Amer) BUN/Creatinine Ratio Glucose POC Glucose POC Lactic Acid Leonard Calcium Total Bilirubin AST ALT Alkaline Phosphatase Troponin I Total Protein Albumin Globulin Albumin/Globulin Ratio TSH Urine Color Urine Appearance Urine pH Ur Specific [place] Urine Protein Urine Glucose (UA) Urine Ketones Urine Blood Urine Nitrite Urine Bilirubin Urine Urobilinogen Ur Leukocyte Esterase Nasal Screen MRSA (PCR) Urine Opiates Screen Neg Ur Methadone, Qual Neg Urine Barbiturates Neg Ur Phencyclidine (PCP) Neg U Amphetamin/Meth Scrn Neg MDMA (Ecstasy) Screen Neg U Benzodiazepines Scrn Neg Ur Cocaine Metabolite Neg U Marijuana (THC) Screen Neg Diagnostic Findings CT lumbar spine IMPRESSION: 1. Considerable degenerative disc change throughout the entire lumbar region. 2. No evidence for compression deformity. 3. Moderate multifactorial narrowing of the spinal canal from L3 through S1. 4. Moderate degenerative changes left superior sacroiliac joint. CT head: unremarkable CXR: IMPRESSION: 1. Cardiomegaly and pulmonary venous hypertension 2. Persistent left basilar opacities, likely atelectatic although an infectious/ inflammatory process could appear similar Code Status & VTE Plan Code Status full code VTE Prophylaxis Plan VTE Prophylaxis will be ordered: Yes _ (1) Altered mental status Altered mental status type: unspecified Coma depth: Coma timing: Qualified Code(s): R41.82 - Altered mental status, unspecified
[2018-11-03 19:34] LABS: Appearance Urine Clear (Clear); Bilirubin Urine Negative (Negative); Blood Urine Negative (Negative); Color Urine Yellow; Glucose Urine UA Negative (Negative); Ketones Urine Trace (Negative); Leukocyte Esterase Urine Negative (Negative); Nitrite Urine Negative (Negative); Protein Urine Negative (Negative); Specific Gravity Urine 1.023 (1.000-1.030); Urobilinogen Urine Negative (Negative); pH Urine 7.5 (4.5-7.5)
[2018-11-03 20:29] LABS: Amphetamines+Metham, Urine Neg (Neg); Barbiturates, Urine Neg (Neg); Benzodiazepine, Urine Neg (Neg); Cocaine, Urine Neg (Neg); MDMA (Ecstacy), Urine Neg (Neg); Methadone, Urine Neg (Neg); Opiate, Urine Neg (Neg); Phencyclidine, Urine Neg (Neg)
--- NOTE | 2018-11-03 22:59 | CT Scan Report ---
CT lumbar spine wo con CT DOSE: 686.83 mGy.cm HISTORY: Pain. Neuropathy. bilateral leg weakness, lower back pain TECHNIQUE: Multiaxial CT images of the lumbar spine were performed and reformatted in the sagittal an d coronal plane without the use of contrast. A dose lowering technique was utilized adhering to the principles of ALARA. COMPARISON: None. FINDINGS: Vertebral body stature is normal throughout. Considerable degenerative disc change througho ut the entire lumbar spine. Moderate anterior osteophytic changes throughout. Posterior lateral elements are intact. Moderate degenerative changes present. Transaxial images within limitations of CT modality demonstrate moderate multifactorial narrowing of the spinal canal at L3-L4, L4-L5, and to lesser extent L5-S1. There is moderate degenerative changes superior left sacroiliac joint. There is no evidence for compression deformity. IMPRESSION: 1. Considerable degenerative disc change throughout the entire lumbar region. 2. No evidence for compression deformity. 3. Moderate multifactorial narrowing of the spinal canal from L3 through S1. 4. Moderate degenerative changes left superior sacroiliac joint. The above report was generated using voice recognition software. It may contain grammatical, syntax or spelling errors. Electronically signed by: Skyler Davila M.D. 11/03/2018 10:58 PM
[2018-11-04 08:00] LABS: Eosinophils # (auto) 0.14 K/uL (0-0.5); Eosinophils % (auto) 3.8 %; Hematocrit (blood only) 34.5 % (42-52); Hemoglobin 10.8 g/dL (14.0-18.0); Immature Granulocytes # (auto) 0.01 K/uL (0.00-0.02); Immature Granulocytes % (auto) 0.3 %; Lymphocytes # (auto) 0.96 K/uL (1.2-3.4); Lymphocytes % (auto) 26.1 %; Mean Corpuscular Hgb Conc 31.3 g/dL (32-36); Mean Corpuscular Volume 87.8 fL (80-100); Mean Platelet Volume 9.2 fL (7.4-10.4); Monocytes # (auto) 0.53 K/uL (0.11-0.59); Monocytes % (auto) 14.4 %; Neutrophils # (auto) 2.04 K/uL (1.4-6.5); Neutrophils % (auto) 55.4 %; Platelet Count 141 K/uL (130-400); RDW Coefficient of Variation 13.2 % (11.5-14.5); RDW Standard Deviation 42.6 fL (36.4-46.3); Red Blood Count 3.93 M/uL (4.7-6.1); White Blood Count 3.68 K/uL (4.8-10.8)
[2018-11-04 08:26] LABS: BUN Creatinine Ratio 20.4 (10-20); Calcium 8.4 mg/dl (8.5-10.1); Creatinine Clr Calc Pharmacy 119.3 ml/min; Est GFR (African American) 114.2; Est GFR (Non-African American) 98.5; Potassium 3.5 mmol/L (3.5-5.1)
--- NOTE | 2018-11-04 13:01 | Psychiatric Consultation ---
Date of Consultation November 04, 2018 Impression / Recommendations Impression 53 yo male admitted due to falls. We are consulted to evaluate the possibility of parkinsonian side effects to meds or TD. Unfortunately the patient is an unreliable historian and we would need much more historical information to make an informed opinion. We know that he has chronically abused alcohol and thus this could be an alcohol related tremor, which may or may not respond to a trial of propranonlol. We know that if he has been on antipsychotics senior care the tremor could be Parkinsonian, but he was diagnoses in [facility] H&P and Major depressive disorder with psychotic features, meaning he may not have been on chronic APM's. Similarly, he could have TD from chronic APM's but his movements appear more like gross tremors that the movements of TD. Given that he is psychotic, I do not think that backing off on his Risperdal is indicated. From the information gathered, and from observing the patient today, I believe he is clearly unable to care for himself and at this time could not live independently. He will require assistance with med administration, help to avoid alcohol and help with ADL's given that he is not using his walker and experiencing falls, all of which could be accomplished in a group home. I don 't know if [facility] has obtained outside records to assist in evaluating his medical condition, but this would be necessary before making any further changes psychiatrically. (1) Depression: 11/04 - Depression with psychotic features per [facility] H&P - Would continue current meds given he is still psychotic - Recommend group home placement - Will need to be followed extermination supervisor for this tremor to tease out a diagnosis. Present on Admission?: Yes (2) Alcohol dependence: 11/04 - Tremor could be alcohol related given his chronic abuse and may benefit from a trial of propranolol if the primary team choses. Risk Factors Assessment Male: Yes : Yes Do You Have Access To A Gun?: Yes Health Problems: Yes Mental Health Diagnoses: Yes Substance Use Disorders: Yes Previous Attempt: No Family History of Suicide: No Previous Psychiatric Hospitalization: Yes Hopelessness: No Protective Factors Assessment : No Responsible for Young Children: No Employed: No Stable Relationships: No Supportive Family: No CPT Code 04490 Psych History Identifying Data 53 yo male, currently an inpatient at [facility], admitted medically after experiencing multiple falls. We are consulted to evaluate possible medications side effects. Chief Complaint "I wanted to kill myself and my brother in law. ". History of Present Illness 53 yo male, who is a non reliable historian, was brought to the hospital from [facility] after experiencing multiple falls. He was recently inpatient at [facility] for chest that was found to be non cardiac in nature. Medical conditions include T2D, hypertension, GERD, hx of CABG with pacemaker, severe tremors and neuropathy. From what I gather from the records and and the patient, He was at [facility] for command hallucinations to kill himself and others. He was stabilized and then sent to [place] for a 21 day rehab for chronic alcohol dependence. The patient denies experiencing DT's or withdrawal seizures despite reporting that he had been consuming 30 beers per day and "as much liquor as I could get". From rehab he was sent to a 3/4 house in [facility], and after arrival did not take his meds for 5 days, saying that he couldn't read the labels without his glasses. He once again developed auditory command hallucinations, and was sent to the [facility]. In terms of his tremor, this is noted in the admission note to the [facility] and noted to be long standing. The patient indicates that he has had the tremor for at least months and maybe years. Nothing has made it better or worse. He describes his falls as "my knees give out". He denies dizziness or faintness, mechanical problems (although noted not to be using the walker that he was supposed to be using). He does not believe that the shaking contributed to his falls. He indicates that he had similar falls about 2-3 years ago, but cannot give me an reliable information about that time. Psychiatrically today he says that he remains depressed, but denies SI. He says that the thoughts to hurt his brother in law are much less and only has "a couple". He reports good sleep, but experiences a sensation that the bed is rising up off of the floor that makes him want to avoid laying down. His appetite is "too good". Anxiety is "up" and endorses panic attacks that occur when he thinks about getting out of bed. Today he describes his auditory hallucinations as 2 men and 2 women arguing, but denies that they are commanding him. He also says that he sees " people". He denies problems with anger or that he has ever injured anyone in the past. He is not oriented, thinking that its 2020, almost December, that he is in [facility], and despite being reoriented to hospital and town, cannot remember that he is in a medical facility and will be going back to the [facility]. Past Psychiatric History Do You Have Access To A Gun?: Yes Allergies Allergy/AdvReac Type Severity Reaction Status Date / Time IV CONTRAST Allergy Severe PASSED OUT Uncoded 10/30/18 18:22 Home Medications Home Medications Medication Instructions Recorded Confirmed Type acetaminophen [Tylenol] 650 mg PO Q4H PRN 10/30/18 11/03/18 History atorvastatin 40 mg PO HS 10/30/18 11/03/18 History benztropine 0.5 mg PO BID 10/30/18 11/03/18 History chlorpromazine 100 mg PO Q8H PRN 10/30/18 11/03/18 History citalopram [Celexa] 40 mg PO QAM 10/30/18 11/03/18 History diphenhydramine HCl [Benadryl] 25 mg PO Q8H PRN 10/30/18 11/03/18 History omeprazole 40 mg PO QAM 10/30/18 11/03/18 History potassium chloride 10 meq PO QAM 10/30/18 11/03/18 History risperidone [Risperdal] 2 mg PO BID 10/30/18 11/03/18 History rivaroxaban 20 mg PO HS 10/30/18 11/03/18 History sucralfate 1 g PO QID 10/30/18 11/03/18 History tamsulosin 0.4 mg PO QAM 10/30/18 11/03/18 History metformin 1,000 mg PO BID #0 tab 10/31/18 11/03/18 Rx metoprolol succinate 50 mg PO HS #0 tab 10/31/18 11/03/18 Rx Mylanta 30 ml PO QID PRN 11/03/18 History diphenhydramine HCl 50 mg PO Q8H PRN 11/03/18 11/03/18 History furosemide 20 mg PO QAM 11/03/18 11/03/18 History magnesium hydroxide [Milk of 30 ml PO DAILY PRN 11/03/18 11/03/18 History Magnesia] metoprolol succinate 100 mg PO HS 11/03/18 11/03/18 History Personal History Beliefs That Will Affect Care: None Patient History Medical History Depression (Chronic) Anxiety (Chronic) Bipolar disorder (Chronic) Diabetes (Chronic) Chest wall pain (Acute) Alcohol dependence Pacemaker (Chronic) Surgical History Hx of CABG (Chronic) Family History Other Family history non-contributory Social History marital status: Single Current Living Situation: Alone Current Living Situation Comment: lives at the [facility] for 3 [facility] Other Information That Helps Us Care for You: No Feels Safe at Home: Yes Safety Concerns: Feels Safe At This Time Smoking Status: Former smoker Do You Dip or Chew Tobacco: No Second Hand Exposure: No Tobacco Cessation Education Requested by Patient: No Hx Alcohol Use: Yes Alcohol Intake Frequency: other Hx Substance Use: No Beliefs That Will Affect Care: None Preferred Language: Lithuanian Communication Ability: Effective Communication Ability Comment: difficulty in following commands Medical Insurance Coder Required: No Physical Exam Vital Signs (Past 24 Hours) Last Vital Signs Temp 36.6 C 11/04/18 11:17 Pulse 70 11/04/18 11:17 Resp 18 11/04/18 11:17 BP 154/93 H 11/04/18 11:17 Pulse Ox 94 11/04/18 11:17 Neurologic moves all extremities, awake and + confused (disoriented) Speech / Cognition: + abnormal speech (inarticulate) Motor/Sensory: + tremor (gross tremors bilateral arms and legs, dissipate at times when more relaxed) Cranial Nerves: normal hearing Coordination: + abnormal [id number] test (ataxic) Review of Systems Neurologic: as per Subjective / HPI shaking Results & Data Medications Administered Atorvastatin Calcium (Lipitor) 40 mg PO HS [facility] Stop: 12/03/18 20:59 Last Admin: 11/03/18 20:47 Dose: 40 mg Benztropine Mesylate (Cogentin) 0.5 mg PO BID [facility] Stop: 12/03/18 20:59 Last Admin: 11/04/18 09:08 Dose: 0.5 mg Admin: 11/03/18 20:47 Dose: 0.5 mg Citalopram Hydrobromide (Celexa) 40 mg PO QAM [facility] Stop: 12/04/18 08:59 Last Admin: 11/04/18 09:07 Dose: 40 mg Metoprolol Succinate (Toprol Xl) 100 mg PO [facility] Stop: 12/03/18 20:59 Last Admin: 11/03/18 20:46 Dose: 100 mg Pantoprazole Sodium (Protonix) 40 mg PO DAILY [facility] Stop: 12/04/18 08:59 Last Admin: 11/04/18 09:07 Dose: 40 mg Risperidone (Risperdal) 2 mg PO BID [facility] Stop: 12/03/18 20:59 Last Admin: 11/04/18 09:08 Dose: 2 mg Admin: 11/03/18 20:47 Dose: 2 mg Rivaroxaban (Xarelto) 20 mg PO [facility] Stop: 12/03/18 20:59 Last Admin: 11/03/18 20:47 Dose: 20 mg Tamsulosin HCl (Flomax) [facility] Stop: 12/04/18 08:59 Last Admin: 11/04/18 09:08 Dose: 0.4 mg
--- NOTE | 2018-11-04 13:50 | Cardiology Consultation ---
Date of Consultation November 04, 2018 Assessment & Plan (1) Afib: Patient has reported history of atrial fibrillation. He has been on systemic anticoagulation suggesting this has been a confirmed diagnosis. His device interrogation did not reveal any recorded episodes of atrial fibrillation. He is in sinus rhythm currently. (2) History of coronary artery disease: Patient did undergo coronary bypass grafting in 2017 at [facility] by his report. The details of this operation are not currently available. He does report some symptoms leading up to his surgery, however there did not appear to be any improvement in the symptoms he mention subsequently. It is unclear whether his history is reliable in this regard. While he does have some very mild elevation in his cardiac biomarkers, I do not think this represents any acute coronary syndrome. He does report a sense of � pounding� in his chest at times, but I do not believe this represents an anginal equivalent. Also, his presentation is not consistent with a an acute coronary syndrome. During his last hospitalization a few days ago he had an echocardiogram which demonstrated preserved LV systolic function. At this point , I would not advocate any additional cardiac evaluation. I will continue him on his current therapy which includes atorvastatin and aspirin and beta blockade. His blood pressure appears to be quite good and I would advocate reinstitution of his Jim inhibitor. (3) Pacemaker: He has a dual-chamber [employer] pacemaker. Normal device function with 55 percent atrial pacing. Set at DDD 70. History of Present Illness Reason for Consultation: Elevated troponin Requesting Physician: Sivan Attending Physician: Pancho Finnegan MD, PhD, [facility] History of Present Illness Patient is a 53-year-old gentleman with a history of major depressive disorder and bipolar disorder who was transferred from a psychiatric facility for weakness and falls. It seems that the patient has had some difficulty with ambulation recently. He generally uses a cane or walker for ambulation but described an inability to walk due to weakness in his legs and back pain. It should be noted that the patient's history may be unreliable. He did not recall certain aspects of his prior medical care. He was noted to be actively hallucinating at the time of the interview specifically regarding the presence of a dog in the room. The patient states that leading up to a bypass surgery an 2016 he had episodes of chest discomfort. He describes this as a pounding in his chest. The symptoms apparently did not resolve with bypass surgery. He still complains of a �pounding� in his chest with some activity. This is not appear to be true at rest. He could not provide other details regarding this symptom. He states that he generally is not limited by dyspnea. He does have back pain. He states that he is dizzy quite often but specifically when changing positions rapidly from seated to standing. He cannot recall syncope recently. Occasionally he will have a sense of palpitation is not appear to be related to activity or position. He does recall having a pacemaker placed in 2018. He reports this being performed due to atrial fibrillation. At the time of the interview the patient claims to be feeling well. He was able to eat lunch. He has no abdominal complaints. He is not currently having breathing difficulty. He has not attempted ambulation since being in the hospital. Allergies Allergy/AdvReac Type Severity Reaction Status Date / Time IV CONTRAST Allergy Severe PASSED OUT Uncoded 10/30/18 18:22 Home Medications Home Medications Medication Instructions Recorded Confirmed Type acetaminophen [Tylenol] 650 mg PO Q4H PRN 10/30/18 11/03/18 History atorvastatin 40 mg PO HS 10/30/18 11/03/18 History benztropine 0.5 mg PO BID 10/30/18 11/03/18 History chlorpromazine 100 mg PO Q8H PRN 10/30/18 11/03/18 History citalopram [Celexa] 40 mg PO QAM 10/30/18 11/03/18 History diphenhydramine HCl [Benadryl] 25 mg PO Q8H PRN 10/30/18 11/03/18 History omeprazole 40 mg PO QAM 10/30/18 11/03/18 History potassium chloride 10 meq PO QAM 10/30/18 11/03/18 History risperidone [Risperdal] 2 mg PO BID 10/30/18 11/03/18 History rivaroxaban 20 mg PO HS 10/30/18 11/03/18 History sucralfate 1 g PO QID 10/30/18 11/03/18 History tamsulosin 0.4 mg PO QAM 10/30/18 11/03/18 History metformin 1,000 mg PO BID #0 tab 10/31/18 11/03/18 Rx metoprolol succinate 50 mg PO HS #0 tab 10/31/18 11/03/18 Rx Mylanta 30 ml PO QID PRN 11/03/18 History diphenhydramine HCl 50 mg PO Q8H PRN 11/03/18 11/03/18 History furosemide 20 mg PO QAM 11/03/18 11/03/18 History magnesium hydroxide [Milk of 30 ml PO DAILY PRN 11/03/18 11/03/18 History Magnesia] metoprolol succinate 100 mg PO HS 11/03/18 11/03/18 History Patient History Medical History Depression (Chronic) Anxiety (Chronic) Bipolar disorder (Chronic) Diabetes (Chronic) Chest wall pain (Acute) Alcohol dependence Pacemaker (Chronic) Surgical History Hx of CABG (Chronic) Family History Other Family history non-contributory Social History marital status: Single Current Living Situation: Alone Current Living Situation Comment: lives at the [facility] for 3 weeks Other Information That Helps Us Care for You: No Feels Safe at Home: Yes Safety Concerns: Feels Safe At This Time Smoking Status: Former smoker Do You Dip or Chew Tobacco: No Second Hand Exposure: No Tobacco Cessation Education Requested by Patient: No Hx Alcohol Use: Yes Alcohol Intake Frequency: other Hx Substance Use: No Beliefs That Will Affect Care: None Preferred Language: Telugu Communication Ability: Effective Communication Ability Comment: difficulty in following commands Telephoto Engineer Required: No Review of Systems Complete. Pertinent positives noted in the history of present illness. No recent constitutional symptoms such as fevers or chills. He does report occasional lower extremity edema which was improved after starting Lasix. Physical Exam 2 Vital Signs (Past 24 Hours): Last Vital Signs Temp 36.6 C 11/04/18 11:17 Pulse 70 11/04/18 11:17 Resp 18 11/04/18 11:17 BP 154/93 H 11/04/18 11:17 Pulse Ox 94 11/04/18 11:17 Physical Exam: The patient is alert. Mood and affect appeared normal. He answered all questions appropriately. He did appear somewhat disheveled. He was noted to have both auditory and visual hallucinations during the examination. HEENT: Pupils are equal and reactive to light and accommodation. Extraocular movements are intact. The sclerae are anicteric. Neuro: Cranial nerves intact Neck: Patient's neck is supple. He has palpable carotid pulses bilaterally without bruits on auscultation. There is no evidence of jugular venous distention. The thyroid is not enlarged. Lungs: Poor air movement with some expiratory wheezing. Cardiac: Heart demonstrates a regular rate and rhythm. Normal S1 and S2. No murmurs on examination. Chest: Well-healed sternotomy scar. Well-healed pacemaker implant scar in the left upper pectoral area. Pulses: The patient has palpable radial pulses bilaterally that are equal in intensity Extremities: There was no evidence of hypoperfusion. There is no cyanosis or clubbing. Mild lower extremity edema. Skin: I did not appreciate any rashes on examination today. Results & Data Laboratory Results Abnormal Lab Results 11/03/18 11/03/18 11/03/18 15:04 15:04 15:14 WBC 4.28 L RBC 4.39 L Hgb 12.5 L Hct 39.1 L MCV 89.1 MCH 28.5 MCHC 32.0 RDW Std Deviation 43.5 RDW Coeff of Trung 13.3 Plt Count 163 MPV 9.3 Immature Gran % (Auto) 0.0 Neut % (Auto) 63.1 Lymph % (Auto) 20.3 [place] % (Auto) 12.9 Eos % (Auto) 3.5 Baso % (Auto) 0.2 Immature Gran # (Auto) 0.00 Neut # (Auto) 2.70 Lymph # (Auto) 0.87 L [place] # (Auto) 0.55 Eos # (Auto) 0.15 Baso # (Auto) 0.01 Sodium 141 Potassium 3.7 Chloride 105 Carbon Dioxide 30 Anion Gap 6.0 BUN 22 H Creatinine 1.00 Est Cr Clr Drug Dosing 103.7 Est GFR ( Amer) 99.2 Est GFR (Non-Af Amer) 85.5 BUN/Creatinine Ratio 21.8 H Glucose 121 H POC Glucose POC Lactic Acid Leonard 1.62 Calcium 9.1 Total Bilirubin 0.4 AST 19 ALT 18 Alkaline Phosphatase 63 Troponin I 0.045 Total Protein 7.6 Albumin 3.9 Globulin 3.7 Albumin/Globulin Ratio 1.1 TSH 6.560 H Urine Color Urine Appearance Urine pH Ur Specific [place] Urine Protein Urine Glucose (UA) Urine Ketones Urine Blood Urine Nitrite Urine Bilirubin Urine Urobilinogen Ur Leukocyte Esterase Nasal Screen MRSA (PCR) Urine Opiates Screen Ur Methadone, Qual Urine Barbiturates Ur Phencyclidine (PCP) U Amphetamin/Meth Scrn MDMA (Ecstasy) Screen U Benzodiazepines Scrn Ur Cocaine Metabolite U Marijuana (THC) Screen 11/03/18 11/03/18 11/03/18 19:38 20:07 Unknown WBC RBC Hgb Hct MCV MCH MCHC RDW Std Deviation RDW Coeff of Trung Plt Count MPV Immature Gran % (Auto) Neut % (Auto) Lymph % (Auto) [place] % (Auto) Eos % (Auto) Baso % (Auto) Immature Gran # (Auto) Neut # (Auto) Lymph # (Auto) [place] # (Auto) Eos # (Auto) Baso # (Auto) Sodium Potassium Chloride Carbon Dioxide Anion Gap BUN Creatinine Est Cr Clr Drug Dosing Est GFR ( Amer) Est GFR (Non-Af Amer) BUN/Creatinine Ratio Glucose POC Glucose 107 H POC Lactic Acid Leonard Calcium Total Bilirubin AST ALT Alkaline Phosphatase Troponin I Total Protein Albumin Globulin Albumin/Globulin Ratio TSH Urine Color Yellow Urine Appearance Clear Urine pH 7.5 Ur Specific [place] 1.023 Urine Protein Negative Urine Glucose (UA) Negative Urine Ketones Trace H Urine Blood Negative Urine Nitrite Negative Urine Bilirubin Negative Urine Urobilinogen Negative Ur Leukocyte Esterase Negative Nasal Screen MRSA (PCR) Negative Urine Opiates Screen Ur Methadone, Qual Urine Barbiturates Ur Phencyclidine (PCP) U Amphetamin/Meth Scrn MDMA (Ecstasy) Screen U Benzodiazepines Scrn Ur Cocaine Metabolite U Marijuana (THC) Screen 11/03/18 11/04/18 11/04/18 Unknown 07:44 07:44 WBC 3.68 L RBC 3.93 L Hgb 10.8 L Hct 34.5 L MCV 87.8 MCH 27.5 MCHC 31.3 L RDW Std Deviation 42.6 RDW Coeff of Trung 13.2 Plt Count 141 MPV 9.2 Immature Gran % (Auto) 0.3 Neut % (Auto) 55.4 Lymph % (Auto) 26.1 [place] % (Auto) 14.4 Eos % (Auto) 3.8 Baso % (Auto) 0.0 Immature Gran # (Auto) 0.01 Neut # (Auto) 2.04 Lymph # (Auto) 0.96 L [place] # (Auto) 0.53 Eos # (Auto) 0.14 Baso # (Auto) 0.00 Sodium 141 Potassium 3.5 Chloride 106 Carbon Dioxide 29 Anion Gap 6.0 BUN 18 Creatinine 0.87 Est Cr Clr Drug Dosing 119.3 Est GFR ( Amer) 114.2 Est GFR (Non-Af Amer) 98.5 BUN/Creatinine Ratio 20.4 H Glucose 91 POC Glucose POC Lactic Acid Leonard Calcium 8.4 L Total Bilirubin AST ALT Alkaline Phosphatase Troponin I Total Protein Albumin Globulin Albumin/Globulin Ratio TSH Urine Color Urine Appearance Urine pH Ur Specific [place] Urine Protein Urine Glucose (UA) Urine Ketones Urine Blood Urine Nitrite Urine Bilirubin Urine Urobilinogen Ur Leukocyte Esterase Nasal Screen MRSA (PCR) Urine Opiates Screen Neg Ur Methadone, Qual Neg Urine Barbiturates Neg Ur Phencyclidine (PCP) Neg U Amphetamin/Meth Scrn Neg MDMA (Ecstasy) Screen Neg U Benzodiazepines Scrn Neg Ur Cocaine Metabolite Neg U Marijuana (THC) Screen Neg 11/04/18 07:44 WBC RBC Hgb Hct MCV MCH MCHC RDW Std Deviation RDW Coeff of Trung Plt Count MPV Immature Gran % (Auto) Neut % (Auto) Lymph % (Auto) [place] % (Auto) Eos % (Auto) Baso % (Auto) Immature Gran # (Auto) Neut # (Auto) Lymph # (Auto) [place] # (Auto) Eos # (Auto) Baso # (Auto) Sodium Potassium Chloride Carbon Dioxide Anion Gap BUN Creatinine Est Cr Clr Drug Dosing Est GFR ( Amer) Est GFR (Non-Af Amer) BUN/Creatinine Ratio Glucose POC Glucose POC Lactic Acid Leonard Calcium Total Bilirubin AST ALT Alkaline Phosphatase Troponin I 0.054 H* Total Protein Albumin Globulin Albumin/Globulin Ratio TSH Urine Color Urine Appearance Urine pH Ur Specific [place] Urine Protein Urine Glucose (UA) Urine Ketones Urine Blood Urine Nitrite Urine Bilirubin Urine Urobilinogen Ur Leukocyte Esterase Nasal Screen MRSA (PCR) Urine Opiates Screen Ur Methadone, Qual Urine Barbiturates Ur Phencyclidine (PCP) U Amphetamin/Meth Scrn MDMA (Ecstasy) Screen U Benzodiazepines Scrn Ur Cocaine Metabolite U Marijuana (THC) Screen Diagnostic Findings Chest x-ray obtained at the time of admission did not reveal any acute cardiopulmonary process. Echocardiogram performed October 2017 revealed preserved LV systolic function. No significant valvular heart disease. I performed a complete interrogation of his [employer] pacemaker. Normal device longevity. Pacing in the atrium 55 percent. Relatively blunted rate histograms. Normal sensing and thresholds on both the atrial and ventricular leads. No detected arrhythmias. No atrial fibrillation. ECG Additional Comments: EKG demonstrated paced atrial rhythm with nonspecific ST and T-wave changes.
--- NOTE | 2018-11-04 14:34 | Hospitalist Progress Note ---
Date of Service November 04, 2018 Assessment & Plan (1) Weakness: (2) Low back pain: (3) Falls: (4) Altered mental status: (5) SOB (shortness of breath): (6) Hx of CABG: (7) Afib: (8) DM type 2 (diabetes mellitus, type 2): (9) Suicidal ideation: (10) Depression: (11) Pacemaker: (12) Diabetes: (13) Bipolar disorder: 53 yo male with history of bipolar disorder, currently admitted inpatient psychiatry at the [facility] admitted on October because of generalized weakness Weakness frequent fall, chronic lower back pain, intermittently in the legs, differential diagnosis include vascular claudication or neurogenic claudication , check ZONIA, neuro consult requested, CT lumbar spine shows degenerative disc disease, mild spinal canal narrowing fell twice today and fell yesterday as well Several for a day, will have neuro input, and have PT OT evaluation and treatment and call precaution, Elevated troponin and EKG was having T wave inversion in 4 5 and 6, repeat EKG was totally normalized, denies chest pain, History of CAD CABG, cardiology input appreciated, continue current care, resume lisinopril, Altered mental status upon admission is totally resolved, History of depression and bipolar, suicidal, psychiatry input appreciated, continue current medication, and per report patient need to have skilled nursing, currently at the [facility] Afib: rates controlled, continue Metoprolol, continue on Xarelto for stroke prevention Diabetic, will check HbA1c, continue insulin sliding scale, Alcohol dependence: We will check sinus symptoms of alcohol withdrawal Mild elevated TSH we will repeat tomorrow morning GI DVT prophylaxis covered, Subjective report depressed however denies suicidal homicidal, Decreased appetite, generalized weakness, Denies chest pain palpitation, Review of Systems Constitutional: Positive weakness, or fatigue Respiratory: Occasional cough, no sputum, wheezing, or dyspnea on exertion Cardiac: No chest pain, No orthopnea, No PND, No claudication, No palpitations , Abdomen: No pain, No nausea, No vomiting, No diarrhea, Musculoskeletal: No joint pain, No muscle pain, No swelling, : No dysuria, No urinary frequency, No incontinence, No hematuria Neurologic: No paralysis, No weakness, No numbness/tingling, Psychiatric: No depression symptoms, No anhedonism Heme: No abnormal bleeding/bruising, No clotting problems, Skin: No rash, No itch, No new/changing skin lesions, No color change, No bleeding Physical Exam 2 Vital Signs (Past 24 Hours): Last Vital Signs Temp 36.6 C 11/04/18 11:17 Pulse 70 11/04/18 11:17 Resp 18 11/04/18 11:17 BP 154/93 H 11/04/18 11:17 Pulse Ox 94 11/04/18 11:17 Physical Exam: General Appearance: Mild flat, weak voice, however conversational, WD/WN, no apparent distress, Eyes: normal inspection, PERRL, EOMI, sclerae normal ENT: normal ENT inspection, hearing grossly normal, pharynx normal Neck: supple, no adenopathy, thyroid normal, no JVD, no carotid bruits, trachea midline Respiratory/Chest: chest non-tender, normal breath sounds, no respiratory distress, no accessory muscle use, breath sounds, rales, wheezing Cardiovascular: regular rate, rhythm, no JVD, no murmur Abdomen: normal bowel sounds, non tender, soft, no organomegaly, Extremities: normal range of motion, non-tender, normal inspection, no pedal edema, no calf tenderness, normal capillary refill , pelvis stable, joint has no limited range of motion, capillary refill is normal, no cyanosis clubbing Neurologic/Psychiatric: Occasional tremor, sample processor II-XII nml as tested, no motor/ sensory deficits, alert, normal mood/affect, oriented x 3 Skin: normal color, warm/dry, no rash Lymphatic: no adenopathy Results & Data Laboratory Results Laboratory Results - last 24 hr 11/03/18 11/03/18 11/03/18 15:04 15:04 15:14 WBC 4.28 L RBC 4.39 L Hgb 12.5 L Hct 39.1 L MCV 89.1 MCH 28.5 MCHC 32.0 RDW Std Deviation 43.5 RDW Coeff of Trung 13.3 Plt Count 163 MPV 9.3 Immature Gran % (Auto) 0.0 Neut % (Auto) 63.1 Lymph % (Auto) 20.3 [place] % (Auto) 12.9 Eos % (Auto) 3.5 Baso % (Auto) 0.2 Immature Gran # (Auto) 0.00 Neut # (Auto) 2.70 Lymph # (Auto) 0.87 L [place] # (Auto) 0.55 Eos # (Auto) 0.15 Baso # (Auto) 0.01 Sodium 141 Potassium 3.7 Chloride 105 Carbon Dioxide 30 Anion Gap 6.0 BUN 22 H Creatinine 1.00 Est Cr Clr Drug Dosing 103.7 Est GFR ( Amer) 99.2 Est GFR (Non-Af Amer) 85.5 BUN/Creatinine Ratio 21.8 H Glucose 121 H POC Glucose POC Lactic Acid Leonard 1.62 Calcium 9.1 Total Bilirubin 0.4 AST 19 ALT 18 Alkaline Phosphatase 63 Troponin I 0.045 Total Protein 7.6 Albumin 3.9 Globulin 3.7 Albumin/Globulin Ratio 1.1 TSH 6.560 H Urine Color Urine Appearance Urine pH Ur Specific [place] Urine Protein Urine Glucose (UA) Urine Ketones Urine Blood Urine Nitrite Urine Bilirubin Urine Urobilinogen Ur Leukocyte Esterase Nasal Screen MRSA (PCR) Urine Opiates Screen Ur Methadone, Qual Urine Barbiturates Ur Phencyclidine (PCP) U Amphetamin/Meth Scrn MDMA (Ecstasy) Screen U Benzodiazepines Scrn Ur Cocaine Metabolite U Marijuana (THC) Screen 11/03/18 11/03/18 11/03/18 19:38 20:07 Unknown WBC RBC Hgb Hct MCV MCH MCHC RDW Std Deviation RDW Coeff of Trung Plt Count MPV Immature Gran % (Auto) Neut % (Auto) Lymph % (Auto) [place] % (Auto) Eos % (Auto) Baso % (Auto) Immature Gran # (Auto) Neut # (Auto) Lymph # (Auto) [place] # (Auto) Eos # (Auto) Baso # (Auto) Sodium Potassium Chloride Carbon Dioxide Anion Gap BUN Creatinine Est Cr Clr Drug Dosing Est GFR ( Amer) Est GFR (Non-Af Amer) BUN/Creatinine Ratio Glucose POC Glucose 107 H POC Lactic Acid Leonard Calcium Total Bilirubin AST ALT Alkaline Phosphatase Troponin I Total Protein Albumin Globulin Albumin/Globulin Ratio TSH Urine Color Yellow Urine Appearance Clear Urine pH 7.5 Ur Specific [place] 1.023 Urine Protein Negative Urine Glucose (UA) Negative Urine Ketones Trace H Urine Blood Negative Urine Nitrite Negative Urine Bilirubin Negative Urine Urobilinogen Negative Ur Leukocyte Esterase Negative Nasal Screen MRSA (PCR) Negative Urine Opiates Screen Ur Methadone, Qual Urine Barbiturates Ur Phencyclidine (PCP) U Amphetamin/Meth Scrn MDMA (Ecstasy) Screen U Benzodiazepines Scrn Ur Cocaine Metabolite U Marijuana (THC) Screen 11/03/18 11/04/18 11/04/18 Unknown 07:44 07:44 WBC 3.68 L RBC 3.93 L Hgb 10.8 L Hct 34.5 L MCV 87.8 MCH 27.5 MCHC 31.3 L RDW Std Deviation 42.6 RDW Coeff of Trung 13.2 Plt Count 141 MPV 9.2 Immature Gran % (Auto) 0.3 Neut % (Auto) 55.4 Lymph % (Auto) 26.1 [place] % (Auto) 14.4 Eos % (Auto) 3.8 Baso % (Auto) 0.0 Immature Gran # (Auto) 0.01 Neut # (Auto) 2.04 Lymph # (Auto) 0.96 L [place] # (Auto) 0.53 Eos # (Auto) 0.14 Baso # (Auto) 0.00 Sodium 141 Potassium 3.5 Chloride 106 Carbon Dioxide 29 Anion Gap 6.0 BUN 18 Creatinine 0.87 Est Cr Clr Drug Dosing 119.3 Est GFR ( Amer) 114.2 Est GFR (Non-Af Amer) 98.5 BUN/Creatinine Ratio 20.4 H Glucose 91 POC Glucose POC Lactic Acid Leonard Calcium 8.4 L Total Bilirubin AST ALT Alkaline Phosphatase Troponin I Total Protein Albumin Globulin Albumin/Globulin Ratio TSH Urine Color Urine Appearance Urine pH Ur Specific [place] Urine Protein Urine Glucose (UA) Urine Ketones Urine Blood Urine Nitrite Urine Bilirubin Urine Urobilinogen Ur Leukocyte Esterase Nasal Screen MRSA (PCR) Urine Opiates Screen Neg Ur Methadone, Qual Neg Urine Barbiturates Neg Ur Phencyclidine (PCP) Neg U Amphetamin/Meth Scrn Neg MDMA (Ecstasy) Screen Neg U Benzodiazepines Scrn Neg Ur Cocaine Metabolite Neg U Marijuana (THC) Screen Neg 11/04/18 07:44 WBC RBC Hgb Hct MCV MCH MCHC RDW Std Deviation RDW Coeff of Trung Plt Count MPV Immature Gran % (Auto) Neut % (Auto) Lymph % (Auto) [place] % (Auto) Eos % (Auto) Baso % (Auto) Immature Gran # (Auto) Neut # (Auto) Lymph # (Auto) [place] # (Auto) Eos # (Auto) Baso # (Auto) Sodium Potassium Chloride Carbon Dioxide Anion Gap BUN Creatinine Est Cr Clr Drug Dosing Est GFR ( Amer) Est GFR (Non-Af Amer) BUN/Creatinine Ratio Glucose POC Glucose POC Lactic Acid Leonard Calcium Total Bilirubin AST ALT Alkaline Phosphatase Troponin I 0.054 H* Total Protein Albumin Globulin Albumin/Globulin Ratio TSH Urine Color Urine Appearance Urine pH Ur Specific [place] Urine Protein Urine Glucose (UA) Urine Ketones Urine Blood Urine Nitrite Urine Bilirubin Urine Urobilinogen Ur Leukocyte Esterase Nasal Screen MRSA (PCR) Urine Opiates Screen Ur Methadone, Qual Urine Barbiturates Ur Phencyclidine (PCP) U Amphetamin/Meth Scrn MDMA (Ecstasy) Screen U Benzodiazepines Scrn Ur Cocaine Metabolite U Marijuana (THC) Screen _ (1) Altered mental status Altered mental status type: unspecified Coma depth: Coma timing: Qualified Code(s): R41.82 - Altered mental status, unspecified
--- NOTE | 2018-11-04 16:08 | Ultrasound Report ---
US arterial duplex LE BI CLINICAL HISTORY: Claudication smoker COMPARISON STUDY: No previous studies for comparison. FINDINGS: The study was limited from a technical standpoint. The patient was unable to fully cooperate with the study. Ankle arm indices could not be obtained. On the right there is triphasic flow within the common femoral superficial femoral and popliteal coreen berta. There is biphasic flow within the posterior tibial peroneal arteries. There is triphasic flow w ithin the anterior tibial. On the left there is triphasic flow in the common femoral superficial femoral and popliteal arteries. There is triphasic flow within the posterior tibial. There is triphasic no in the peroneal. There is triphasic flow within the anterior tibial. IMPRESSION: No evidence of lower extremity arterial stenosis. Electronically signed by: Francisco Christine M.D. 11/04/2018 4:07 PM
[2018-11-05 04:15] LABS: Basophils # (auto) 0.01 K/uL (0-0.2); Basophils % (auto) 0.3 %; Eosinophils # (auto) 0.18 K/uL (0-0.5); Eosinophils % (auto) 4.5 %; Hematocrit (blood only) 33.3 % (42-52); Hemoglobin 10.7 g/dL (14.0-18.0); Immature Granulocytes # (auto) 0.03 K/uL (0.00-0.02); Immature Granulocytes % (auto) 0.8 %; Mean Corpuscular Hgb Conc 32.1 g/dL (32-36); Mean Corpuscular Volume 87.4 fL (80-100); Mean Platelet Volume 9.1 fL (7.4-10.4); Monocytes # (auto) 0.59 K/uL (0.11-0.59); Monocytes % (auto) 14.8 %; Neutrophils # (auto) 1.99 K/uL (1.4-6.5); Neutrophils % (auto) 49.6 %; Platelet Count 135 K/uL (130-400); RDW Coefficient of Variation 13.1 % (11.5-14.5); RDW Standard Deviation 42.2 fL (36.4-46.3); Red Blood Count 3.81 M/uL (4.7-6.1)
[2018-11-05 04:45] LABS: Alanine Aminotransferase 16 U/L (12-78); Albumin Level 3.1 gm/dl (3.4-5.0); Aspartate Aminotransferase 13 U/L (15-37); BUN Creatinine Ratio 13.1 (10-20); Blood Urea Nitrogen 11 mg/dl (7-18); Calcium 8.1 mg/dl (8.5-10.1); Carbon Dioxide 27 mmol/L (21-32); Chloride 106 mmol/L (98-107); Creatinine Clr Calc Pharmacy 122.1 ml/min; Est GFR (African American) 115.3; Est GFR (Non-African American) 99.5; Glucose 126 mg/dl (70-99); Magnesium 1.8 mg/dl (1.8-2.4); Potassium 3.4 mmol/L (3.5-5.1); Sodium 141 mmol/L (136-145)
[2018-11-05 04:49] LABS: Alkaline Phosphatase 50 U/L (45-117); Bilirubin Direct < 0.1 mg/dl (0-0.2); Bilirubin,Total 0.3 mg/dl (0.2-1); Phosphorus 4.1 mg/dl (2.5-4.9)
--- NOTE | 2018-11-05 09:00 | Neurology Consultation ---
Date of Consultation November 05, 2018 Assessment & Plan (1) Falls: This patient is complicated neurologically, and I believe his falling is multifactorial in origin. On neurologic examination his strength is fairly intact with individual muscle testing however he does have some mild proximal leg weakness right greater than left side. This could lead to some buckling of his knees (quadriceps weakness) . However, his gait has an ataxic base and he shuffles. He has poor stands even sitting up. He has some decreased sensation in the feet and absent reflexes diffusely. There are abnormal involuntary movements consistent with rigidity, bradykinesia, dyskinesias/myoclonic jerks, and tremor. 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 This can affect gait. Although I cannot entirely exclude a myelopathy he does not have cervical spine pain and no upper motor neuron signs. However, the presence of polyneuropathy could mask upper motor neuron signs. (2) Altered mental status: The patient on examination still has thought disorder with auditory and visual hallucinations consistent with his major depression with psychosis. He is not having any suicidal ideation this morning. He does not seem to have delirium/acute encephalopathy this morning but there may be an underlying dementia associated with his thought disorder. Chronic alcohol use could result in dementia. I note a mildly elevated TSH at greater than 5. This could certainly affect cognition as well if he is hypothyroid. (3) Abnormal involuntary movement: This patient has a combination of parkinsonism (bradykinesia, rigidity, and intermittent resting tremor as well as a very poor shuffling gait) as well as some dyskinetic movements or even myoclonic jerks. The dyskinetic movements are intermittent and not very severe this morning. I do not see any classic or orofacial or other tardive dyskinetic movements however. Risperidone (and previous neuroleptics) could be responsible for most, if not all, of these movements. (4) Chronic cerebral ischemia: Patient has a history of old left cerebellar stroke of a rather large nature as well as chronic cerebral ischemia seen on CT scan. Unfortunately, we cannot get an MRI of the brain because of his pacemaker. He has significant stroke this factors include a longstanding diabetes, hypertension (which is not adequately controlled currently, and dyslipidemia. He is on Xarelto for his history of atrial fibrillation in the past, but not anything to prevent small vessel ischemic disease. He is currently not in atrial fibrillation, since admission. Recommendations: 1. Control blood pressure, trying for a mean arterial pressure of no more than 100. 2. Consider 81 milligram aspirin tablet daily to prevent small vessel ischemic disease 3. Physical and occupational therapy consult. This patient needs at least a walker for support. I am not even sure he can ambulate well even with a walker at this point and may need to be wheelchair bound until he improves. 4. Obviously, from a neurologic standpoint, I would prefer him being off all neuroleptics, but I understand that with his psychosis he needs certain medication. I will defer all psychiatric medication decisions to Psychiatry. 5. I would consider discontinuing benztropine. It may be having a mild anti parkinsonian affect but I am concerned about anticholinergic side effects/ confusion in this patient. We could see how he does off the medication for couple of days and make recommendations then regarding any other medication to help abnormal involuntary movements/parkinsonism. 6. Vest gait elevated TSH and treat hypothyroidism if present. 7. I would like to do EMG and nerve conduction study on his legs, but this has to be done as an outpatient. Overall, I spent a total of 150 minutes with this case including review of records, review of CT scan films, direct evaluation the patient at bedside, and discussion of the case with the patient at bedside, clinical staff, Dr. Hernandes, Psychiatry, and Dr. Finnegan, including differential diagnosis and treatment options. History of Present Illness Reason for Consultation: Patient is a 53-year-old, who I was asked to see the request of Dr. Finnegan, neurologic consultation regarding weakness and falling. Requesting Physician: Dr. Finnegan Attending Physician: Pancho Finnegan MD, PhD, [facility] History of Present Illness This patient has history, to me, is very suspect from a chronological/time line standpoint. He does seem to know a fair amount of his history but I do not trust his recall of timing of events as I found several inconsistencies in the course of the interview. Apparently, he has had longstanding diabetes ("since his teen years") and hypertension (�many years�). He tells me that he had a stroke in October of 2017 but then he tells me that this stroke pre seated the discovery of atrial fibrillation and the need for a pacemaker. Apparently, he had coronary artery bypass graft in [facility] in 2017. They discovered atrial fibrillation and put in a pacemaker sometime in 2018. He has been on Xarelto anticoagulation. He is on atorvastatin 40 milligrams daily and metoprolol 100 milligrams daily for his cardiac condition. He cannot give me any details as to what happened to him as far as deficits during this stroke. He has had a longstanding history of psychiatric illness (�6-7 years�) and has significant auditory and visual hallucinations with suicidal ideation. He has been at the [facility] for 2-3 weeks now and has been on a number of different psychiatric medications. He is currently on Risperdal 2 milligrams twice daily. There was a note that he may have been on Abilify earlier this month. He is on benztropine for parkinsonism 0.5 milligrams twice daily. In addition he is on citalopram 40 milligrams a day and chlorpromazine 100 milligrams q.8 hours as needed. He was on Depakote but this is been discontinued. He carries a diagnosis of major depression with psychosis, bipolar disorder, and anxiety. Patient tells me that he would drink up to a case of beer per day plus any � hard liquor� that he could get his hands on. He has been doing this intermittently for many years, as recently as �3 months ago�. He says he has had a couple of seizures in the past but he can't give me any details are be more specific. He has been at the [facility] for several weeks now and has not shown any alcohol withdrawal seizures. The patient has had tremors for �6 months�. He has been weak and his balance has been poor. He has been falling recently as well. He came to the emergency room October 30 for chest pain, leg swelling, fatigue, and multiple other symptoms. He was discovered to have positive influenza a and B and was given Tamiflu. He was discharged October 31 back to the [facility] (he continued to have suicidal ideation). He has auditory hallucinations of �2 women and 2 men arguing, telling him to do away with himself�. He claims he heard these voices tell him this as recently as yesterday and last night. He also sees �2 women arguing� and � people that he knows� intermittently. The patient was return to our emergency room November 03 with continued confusion, lower extremity weakness, lower extremity numbness, 5 and frequent falls. The patient states that his legs buckle and he can't ambulate losing his balance. He claims that he does not pass out. He does have some low back pain. November 03 at 1414 temperature was 36.6, pulse 70 and regular, respiratory 20 , blood pressure 135/104, and O2 saturation 96 percent. He was described as being awake but not oriented. He had upper extremity tremors and weakness in his legs. CT scan of the head showed an old left cerebellar infarct. I reviewed this film and it is rather large. CT scan of the lumbar spine showed degenerative changes. Urine tox screen was unremarkable. Urinalysis was negative as well. He has mild anemia, elevated TSH at 5.3, and slightly low calcium at 8.1. Potassium was slightly low at 3.4. Since admission his blood pressure has been elevated and recently it has been 154/100 this morning. He has been in normal sinus rhythm paced and mostly in the 70s since admission. Currently, he denies headaches or pain in his limbs. He denies numbness or tingling in his limbs but he feels that he is weak in general. He knows he has some incontinence of urine occasionally. Allergies Allergy/AdvReac Type Severity Reaction Status Date / Time IV CONTRAST Allergy Severe PASSED OUT Uncoded 10/30/18 18:22 Home Medications Home Medications Medication Instructions Recorded Confirmed Type acetaminophen [Tylenol] 650 mg PO Q4H PRN 10/30/18 11/03/18 History atorvastatin 40 mg PO HS 10/30/18 11/03/18 History benztropine 0.5 mg PO BID 10/30/18 11/03/18 History chlorpromazine 100 mg PO Q8H PRN 10/30/18 11/03/18 History citalopram [Celexa] 40 mg PO QAM 10/30/18 11/03/18 History diphenhydramine HCl [Benadryl] 25 mg PO Q8H PRN 10/30/18 11/03/18 History omeprazole 40 mg PO QAM 10/30/18 11/03/18 History potassium chloride 10 meq PO QAM 10/30/18 11/03/18 History risperidone [Risperdal] 2 mg PO BID 10/30/18 11/03/18 History rivaroxaban 20 mg PO HS 10/30/18 11/03/18 History sucralfate 1 g PO QID 10/30/18 11/03/18 History tamsulosin 0.4 mg PO QAM 10/30/18 11/03/18 History metformin 1,000 mg PO BID #0 tab 10/31/18 11/03/18 Rx metoprolol succinate 50 mg PO HS #0 tab 10/31/18 11/03/18 Rx Mylanta 30 ml PO QID PRN 11/03/18 History diphenhydramine HCl 50 mg PO Q8H PRN 11/03/18 11/03/18 History furosemide 20 mg PO QAM 11/03/18 11/03/18 History magnesium hydroxide [Milk of 30 ml PO DAILY PRN 11/03/18 11/03/18 History Magnesia] metoprolol succinate 100 mg PO HS 11/03/18 11/03/18 History Patient History Medical History Anxiety (Chronic) Depression (Chronic) Bipolar disorder (Chronic) Diabetes (Chronic) Chest wall pain (Acute) Alcohol dependence Pacemaker (Chronic) Surgical History History of hernia repair Hx of CABG (Chronic) Social History marital status: Single Current Living Situation: Alone Current Living Situation Comment: lives at the [facility] for 3 weeks. 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 Other Information That Helps Us Care for You: No Feels Safe at Home: Yes Safety Concerns: Feels Safe At This Time Smoking Status: Former smoker Years Smoked: 34 Cigarettes per Day: 2 packs Do You Dip or Chew Tobacco: No Number of Years Since Quit: 2 Second Hand Exposure : No Tobacco Cessation Education Requested by Patient: No Hx Alcohol Use: Yes Alcohol Intake Frequency: other Alcohol Intake Frequency Comment: Case of beer per day plus liquor as often as he can Hx Substance Use: No Beliefs That Will Affect Care: None Communication Ability: Impaired Review of Systems Constitutional: + fatigue and + weakness; no fever, no body aches and no increased appetite Eyes: no diplopia, no eye pain and no worsening vision Ear, Nose, Mouth, Throat: no ear pain, no tinnitus, no hearing loss and no dysphagia Respiratory: no cough and no dyspnea Cardiovascular: no chest pain, no dyspnea and no palpitations Gastrointestinal: no abdominal pain, no nausea and no vomiting Genitourinary (Male): + urinary incontinence; no dysuria and no urinary frequency Musculoskeletal: + back pain, + muscle weakness and + muscle atrophy; no neck pain, no radicular pain and no myalgia Integumentary: no rash and no lesions Neurologic: + gait abnormality, + falls, + localized weakness, + generalized weakness, + tremor(s) and + abnormal movements; no tingling, no numbness, no dizziness, no headache(s), no abnormal speech, no behavioral changes, no confusion and no memory loss Psychiatric: + hallucinations; no depression, no abnormal sleep pattern, no anxiety, no difficulty concentrating and no confusion Endocrine: + fatigue; no flushing Hematologic / Lymphatic: + easy bleeding and + easy bruising Allergy / Immunological: no urticaria Physical Exam 2 Vital Signs (Past 24 Hours): Last Vital Signs Temp 36.4 C L 11/05/18 04:00 Pulse 68 11/05/18 04:00 Resp 19 11/05/18 04:00 BP 154/100 H 11/05/18 04:00 Pulse Ox 94 11/05/18 04:00 Physical Exam: The patient is right-handed. The patient is awake, alert, and attentive. Speech is without any obvious aphasia or dysarthria, but sometimes he can speak quickly and his words can be unintelligible. He will repeat himself and I was able to understand. Attention and concentration are reasonable. Mood and affect are normal and appropriate, although he has a slightly flat affect. General appearance and grooming are reason. Short and long-term memory are difficult to interpret. He does retain many short and long-term memories, but I believe his time frame and chronological order is off. He knew his name the fact that he was in a hospital, left from right, simple calculations, and could name objects. He did not know where he was, the year, the month, the season, or the day. The discs are sharp with positive venous pulsations bilaterally. There are no exudates, hemorrhages, or blood vessel changes seen. Pupils are 3 mm bilaterally and reactive to light. Extraocular eye muscles are intact without nystagmus. Visual acuity and visual myles seem normal grossly to confrontation. There are no deficits to sensation in the face in all 3 distributions of the fifth cranial nerve bilaterally. Corneal reflexes are positive bilaterally. Facial strength and symmetry was normal bilaterally. Hearing seems intact grossly to voice and finger rub bilaterally. Palate moves well without asymmetry. He has no upper teeth in and has only a few lower teeth. There is normal sternocleidomastoid and trapezius (shoulder shrug) strength bilaterally. Tongue is midline with good strength bilaterally. Neck has a full range of motion without discomfort, but is stiff. There are no cervical bruits bilaterally. There are no cranial or ocular bruits. Heart is without murmur. There is a regular rhythm and rate. Cervical and thoracic spine are nontender to palpation. He has some tenderness midline in the lumbar spine without spasm. Stance sitting up in bed with his legs dangling is poor and he tends to lean/ fall backwards and sometimes to the left. He needs support to sit up. He can push up and get to a standing position under his own power (proximal legs are strong enough) but needs guidance so he does not fall over. Stance is wide base and deteriorates with burning feet together or closing his eyes. He shuffles and has a wide-based gait requiring the assistance of 2 people. He will fall quite easily without support. With outstretched arms there is no drift. There is no obvious ataxia with finger -to-nose testing but he does have some action tremor and some mild dysmetria of the left greater than right hands. He has some dysmetria of left greater than right foot as well. There is reason facility in the hands. I do note some intermittent coarse resting type tremors when he is distracted in both hands. He does have some myoclonic jerks/dyskinesia of his limbs spontaneously worse in different positions compared to others. He does not have asterixis. There is no chorea or dystonia. Motor strength is 5/5 diffusely in the arms bilaterally including deltoids, biceps, triceps, brachioradialis, wrist flexors and extensors, and trust advisor. He has some mild weakness in the hands with some small muscle atrophy particularly in the 1st dorsal interosseous muscles bilaterally. Motor strength is 4+/5 in the left quad compared to the right which is closer to 5/5. Hip flexors are close to 5/5 bilaterally as well as our hamstring muscles. Distally, strength is clearly 5/5 in the tibialis anterior, tibialis posterior, peroneii, and gastrocnemius muscles. The limbs have mild cogwheel rigidity throughout. The arms may be a little more prominent than the legs. He has a mild generalized bradykinesia. Sensory examination reveals some mild stocking type distribution loss of sensation in the feet bilaterally. Reflexes are 0/4 in the biceps, triceps, brachioradialis, quadriceps, and Achilles tendons bilaterally. Toes are downgoing with plantar stimulation bilaterally. Peripheral pulses are present and of normal quality distally in all 4 limbs. There is no peripheral edema noted in the limbs. Results & Data Diagnostic Findings CT head/brain wo con CLINICAL HISTORY: Acute change in mental status COMPARISON STUDY: No previous studies for comparison. TECHNIQUE: Axial CT of the brain is performed from the vertex to the skull base. IV contrast was not administered for this examination. A dose lowering technique was utilized adhering to the principles of ALARA. CT DOSE: 614.27 mGy.cm FINDINGS: No intra or extra-axial mass lesions are visualized. There is no CT evidence of acute cortical infarction. There is no evidence of midline shift. There is no acute hemorrhage. No calvarial fractures are visualized. There are patchy white matter hypodensities likely on a small vessel basis. There is an old left occipital infarct in the PICA distribution. There is mild particular prominence, likely secondary to volume loss. There is no evidence of acute sinusitis IMPRESSION: 1. Old left cerebellar infarct. 2. No acute intracranial findings. Electronically signed by: Francisco Christine M.D. 11/03/2018 3:31 PM _ (1) Altered mental status Altered mental status type: unspecified Coma depth: Coma timing: Qualified Code(s): R41.82 - Altered mental status, unspecified
--- NOTE | 2018-11-05 14:49 | Hospitalist Progress Note ---
Date of Service November 05, 2018 Assessment & Plan (1) Weakness: (2) Low back pain: (3) Falls: (4) Altered mental status: (5) SOB (shortness of breath): (6) Hx of CABG: (7) Afib: (8) DM type 2 (diabetes mellitus, type 2): (9) Suicidal ideation: (10) Depression: (11) Pacemaker: (12) Diabetes: (13) Bipolar disorder: 53 yo male with history of bipolar disorder, currently admitted inpatient psychiatry at the [facility] admitted on October because of generalized weakness Weakness frequent fall, chronic lower back pain intermittently in the legs, differential diagnosis include vascular claudication or neurogenic claudication , neuro consult important CT lumbar spine shows degenerative disc disease, mild spinal canal narrowing Continue treat for anxiety /agitation , continue PT OT evaluation and treatment and call precaution, Elevated troponin and EKG was having T wave inversion in 4 5 and 6, repeated EKG was totally normalized, denies chest pain, History of CAD CABG, cardiology input appreciated, continue current care, Will increase the lisinopril because of uncontrolled blood pressure Altered mental status upon admission , still comes and goes History of depression and bipolar, suicidal, psychiatry input appreciated, continue current medication, and per report patient need to have skilled nursing, currently from the [facility] Afib: rates controlled, continue Metoprolol, continue on Xarelto for stroke prevention Diabetic, will check HbA1c, continue insulin sliding scale, Alcohol dependence: currently have no signs and symptoms of alcohol withdrawal Mild elevated TSH we will repeat tomorrow morning, check today which is getting better, which is possible in the borderline however will check T3-T4 GI DVT prophylaxis covered, DC'ed benztropine, start aspirin, Possible difficulty in discharge Subjective agitated, required one-to-one sitter, mild confused, Decreased appetite, generalized weakness, Denies chest pain palpitation, Review of Systems is limited because patient not able to really engage in conversation Constitutional: Positive weakness, Respiratory: Occasional cough, no sputum, wheezing, or dyspnea on exertion Cardiac: No chest pain, No orthopnea, No PND, No claudication, No palpitations , Abdomen: No pain, No nausea, No vomiting, No diarrhea, Musculoskeletal: No joint pain, No muscle pain, No swelling, : No dysuria, No urinary frequency, No incontinence, No hematuria Neurologic: No paralysis, mild generalized weakness, No numbness/tingling, Psychiatric: No depression symptoms, No anhedonism Heme: No abnormal bleeding/bruising, No clotting problems, Skin: No rash, No itch, No new/changing skin lesions, No color change, No bleeding Physical Exam 2 Vital Signs (Past 24 Hours): Last Vital Signs Temp 36.4 C L 11/05/18 04:00 Pulse 69 11/05/18 09:57 Resp 20 11/05/18 09:57 BP 159/95 H 11/05/18 09:57 Pulse Ox 93 11/05/18 09:57 Physical Exam: General Appearance: Lethargic and confused, possible minimal hallucination, WD/ WN, no apparent distress, Eyes: normal inspection, PERRL, EOMI, sclerae normal ENT: normal ENT inspection, hearing grossly normal, pharynx normal Neck: supple, no adenopathy, thyroid normal, no JVD, no carotid bruits, trachea midline Respiratory/Chest: chest non-tender, normal breath sounds, no respiratory distress, no accessory muscle use, breath sounds, rales, wheezing Cardiovascular: regular rate, rhythm, no JVD, no murmur Abdomen: normal bowel sounds, non tender, soft, no organomegaly, Extremities: normal range of motion, non-tender, normal inspection, joint has no limited range of motion, capillary refill is normal, no cyanosis clubbing Neurologic/Psychiatric: Occasional tremor, dynamics ax solution architect II-XII nml as tested, no motor/ sensory deficits, alert, normal mood/affect, oriented x 3 Skin: normal color, warm/dry, no rash Lymphatic: no adenopathy Results & Data Laboratory Results Laboratory Results - last 24 hr 11/04/18 11/05/18 11/05/18 14:55 04:01 04:01 WBC 4.00 L RBC 3.81 L Hgb 10.7 L Hct 33.3 L MCV 87.4 MCH 28.1 MCHC 32.1 RDW Std Deviation 42.2 RDW Coeff of Trung 13.1 Plt Count 135 MPV 9.1 Immature Gran % (Auto) 0.8 Neut % (Auto) 49.6 Lymph % (Auto) 30.0 [place] % (Auto) 14.8 Eos % (Auto) 4.5 Baso % (Auto) 0.3 Immature Gran # (Auto) 0.03 H Neut # (Auto) 1.99 Lymph # (Auto) 1.20 [place] # (Auto) 0.59 Eos # (Auto) 0.18 Baso # (Auto) 0.01 Sodium 141 Potassium 3.4 L Chloride 106 Carbon Dioxide 27 Anion Gap 8.0 BUN 11 Creatinine 0.85 Est Cr Clr Drug Dosing 122.1 Est GFR ( Amer) 115.3 Est GFR (Non-Af Amer) 99.5 BUN/Creatinine Ratio 13.1 Glucose 126 H Calcium 8.1 L Phosphorus 4.1 Magnesium 1.8 Total Bilirubin 0.3 Direct Bilirubin < 0.1 AST 13 L ALT 16 Alkaline Phosphatase 50 Ammonia Total Protein 6.0 L D Albumin 3.1 L Vitamin B12 Folate 14.53 TSH 5.380 H 11/05/18 11/05/18 04:01 04:01 WBC RBC Hgb Hct MCV MCH MCHC RDW Std Deviation RDW Coeff of Trung Plt Count MPV Immature Gran % (Auto) Neut % (Auto) Lymph % (Auto) [place] % (Auto) Eos % (Auto) Baso % (Auto) Immature Gran # (Auto) Neut # (Auto) Lymph # (Auto) [place] # (Auto) Eos # (Auto) Baso # (Auto) Sodium Potassium Chloride Carbon Dioxide Anion Gap BUN Creatinine Est Cr Clr Drug Dosing Est GFR ( Amer) Est GFR (Non-Af Amer) BUN/Creatinine Ratio Glucose Calcium Phosphorus Magnesium Total Bilirubin Direct Bilirubin AST ALT Alkaline Phosphatase Ammonia 17.4 Total Protein Albumin Vitamin B12 428 Folate TSH _ (1) Altered mental status Altered mental status type: unspecified Coma depth: Coma timing: Qualified Code(s): R41.82 - Altered mental status, unspecified
[2018-11-06 07:01] LABS: Eosinophils # (auto) 0.15 K/uL (0-0.5); Eosinophils % (auto) 3.9 %; Hematocrit (blood only) 35.9 % (42-52); Hemoglobin 11.7 g/dL (14.0-18.0); Immature Granulocytes # (auto) 0.02 K/uL (0.00-0.02); Immature Granulocytes % (auto) 0.5 %; Lymphocytes # (auto) 1.21 K/uL (1.2-3.4); Lymphocytes % (auto) 31.6 %; Mean Corpuscular Hgb Conc 32.6 g/dL (32-36); Mean Corpuscular Volume 86.3 fL (80-100); Mean Platelet Volume 9.4 fL (7.4-10.4); Monocytes # (auto) 0.57 K/uL (0.11-0.59); Monocytes % (auto) 14.9 %; Neutrophils # (auto) 1.88 K/uL (1.4-6.5); Neutrophils % (auto) 49.1 %; Platelet Count 150 K/uL (130-400); RDW Coefficient of Variation 13.1 % (11.5-14.5); RDW Standard Deviation 41.2 fL (36.4-46.3); Red Blood Count 4.16 M/uL (4.7-6.1); White Blood Count 3.83 K/uL (4.8-10.8)
[2018-11-06 07:29] LABS: Albumin Level 3.1 gm/dl (3.4-5.0); BUN Creatinine Ratio 10.5 (10-20); Bilirubin Direct 0.1 mg/dl (0-0.2); Calcium 8.4 mg/dl (8.5-10.1); Creatinine Clr Calc Pharmacy 113.2 ml/min; Est GFR (African American) 113.1; Est GFR (Non-African American) 97.6; Magnesium 1.8 mg/dl (1.8-2.4); Potassium 3.7 mmol/L (3.5-5.1)
[2018-11-06 07:32] LABS: Bilirubin,Total 0.4 mg/dl (0.2-1); Phosphorus 4.1 mg/dl (2.5-4.9); Total Protein 6.4 gm/dl (6.4-8.2)
--- NOTE | 2018-11-06 16:10 | Hospitalist Progress Note ---
Date of Service November 06, 2018 Assessment & Plan (1) Weakness: (2) Low back pain: (3) Falls: (4) Altered mental status: (5) SOB (shortness of breath): (6) Hx of CABG: (7) Afib: (8) DM type 2 (diabetes mellitus, type 2): (9) Suicidal ideation: (10) Depression: (11) Pacemaker: (12) Diabetes: (13) Bipolar disorder: 53 yo male with history of bipolar disorder, currently admitted inpatient psychiatry at the [facility] admitted on October because of generalized weakness, seems has been improving and stable, Weakness frequent fall, chronic lower back pain intermittently in the legs, differential diagnosis include vascular claudication or neurogenic claudication , neuro consult important CT lumbar spine shows degenerative disc disease, mild spinal canal narrowing Continue treat for anxiety /agitation , continue PT OT evaluation and treatment and call precaution, Elevated troponin and EKG was having T wave inversion in 4 5 and 6, repeated EKG was totally normalized, denies chest pain, History of CAD CABG, cardiology input appreciated, continue current care, Will increase the lisinopril because of uncontrolled blood pressure History of depression and bipolar, suicidal, psychiatry input appreciated, continue current medication, and per report patient need to have custodial placement, currently from the [facility] We according to psychiatry to reevaluation and to clear for one-to-one Afib: rates controlled, continue Metoprolol, continue on Xarelto for stroke prevention Diabetic, will check HbA1c, continue insulin sliding scale, Alcohol dependence: currently have no signs and symptoms of alcohol withdrawal Mild elevated TSH we will repeat tomorrow morning, check today which is getting better, which is possible in the borderline however checked T3-T4, near normal range, GI DVT prophylaxis covered, Possible difficulty in discharge, pending for custodial placement, PT OT, up and walk, eating drinking, Subjective Lumbar agitation, seems eating drinking good, conversational, however still on one-to-one sitter, Confused, Review of Systems Constitutional: Positive weakness, Respiratory: Occasional cough, no sputum, wheezing, or dyspnea on exertion Cardiac: No chest pain, No orthopnea, No PND, No claudication, No palpitations , Abdomen: No pain, No nausea, No vomiting, No diarrhea, Musculoskeletal: No joint pain, No muscle pain, No swelling, : No dysuria, No urinary frequency, No incontinence, No hematuria Neurologic: No paralysis, mild generalized weakness, No numbness/tingling, Psychiatric: No depression symptoms, No anhedonism Heme: No abnormal bleeding/bruising, No clotting problems, Skin: No rash, No itch, No new/changing skin lesions, No color change, No bleeding Physical Exam 2 Vital Signs (Past 24 Hours): Last Vital Signs Temp 36.6 C 11/06/18 14:42 Pulse 86 11/06/18 14:42 Resp 20 11/06/18 14:42 BP 131/91 11/06/18 14:42 Pulse Ox 92 11/06/18 14:42 Physical Exam: General Appearance: more lucid , WD/WN, no apparent distress, Eyes: normal inspection, PERRL, EOMI, sclerae normal ENT: normal ENT inspection, hearing grossly normal, pharynx normal Neck: supple, no adenopathy, thyroid normal, no JVD, no carotid bruits, trachea midline Respiratory/Chest: chest non-tender, normal breath sounds, no respiratory distress, no accessory muscle use, breath sounds, rales, wheezing Cardiovascular: regular rate, rhythm, no JVD, no murmur Abdomen: normal bowel sounds, non tender, soft, no organomegaly, Extremities: normal range of motion, non-tender, normal inspection, joint has no limited range of motion, capillary refill is normal, no cyanosis clubbing Neurologic/Psychiatric: Occasional tremor, wet machine cutter II-XII nml as tested, no motor/ sensory deficits, alert, normal mood/affect, oriented x 3 Skin: normal color, warm/dry, no rash Lymphatic: no adenopathy Results & Data Laboratory Results Laboratory Results - last 24 hr 11/06/18 11/06/18 06:33 06:33 WBC 3.83 L RBC 4.16 L Hgb 11.7 L Hct 35.9 L MCV 86.3 MCH 28.1 MCHC 32.6 RDW Std Deviation 41.2 RDW Coeff of Trung 13.1 Plt Count 150 MPV 9.4 Immature Gran % (Auto) 0.5 Neut % (Auto) 49.1 Lymph % (Auto) 31.6 [place] % (Auto) 14.9 Eos % (Auto) 3.9 Baso % (Auto) 0.0 Immature Gran # (Auto) 0.02 Neut # (Auto) 1.88 Lymph # (Auto) 1.21 [place] # (Auto) 0.57 Eos # (Auto) 0.15 Baso # (Auto) 0.00 Sodium 140 Potassium 3.7 Chloride 106 Carbon Dioxide 28 Anion Gap 6.0 BUN 9 Creatinine 0.89 Est Cr Clr Drug Dosing 113.2 Est GFR ( Amer) 113.1 Est GFR (Non-Af Amer) 97.6 BUN/Creatinine Ratio 10.5 Glucose 88 Calcium 8.4 L Phosphorus 4.1 Magnesium 1.8 Total Bilirubin 0.4 Direct Bilirubin 0.1 AST 17 ALT 18 Alkaline Phosphatase 56 Total Protein 6.4 Albumin 3.1 L _ (1) Altered mental status Altered mental status type: unspecified Coma depth: Coma timing: Qualified Code(s): R41.82 - Altered mental status, unspecified
--- NOTE | 2018-11-07 10:57 | Neurology Progress Note ---
Date of Service November 07, 2018 Assessment & Plan (1) Falls: This patient is complicated neurologically, and I believe his falling is multifactorial in origin. On neurologic examination his strength is fairly intact with individual muscle testing. He has some buckling of his knees (quadriceps weakness) when he tries to ambulate at times. His gait has an ataxic base and he shuffles. He has poor stance even sitting up. He has some decreased sensation in the feet and absent reflexes diffusely. There are much less abnormal involuntary movements today compared to 2 days ago. Without t as much rigidity, bradykinesia, dyskinesias/myoclonic jerks, and tremor. 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 This can affect gait. Although I cannot entirely exclude a myelopathy, he does not have cervical spine pain and no upper motor neuron signs. However, the presence of polyneuropathy could mask upper motor neuron signs. (2) Altered mental status: The patient on examination has a thought disorder with frequent auditory and visual hallucinations consistent with his major depression with psychosis. He is not having any suicidal ideation this morning. He does not seem to have delirium/acute encephalopathy this morning, but there I am concerned about an underlying dementia associated with his thought disorder. Chronic alcohol use could result in dementia. I note a mildly elevated TSH at greater than 5. This could certainly affect cognition as well if he is hypothyroid. (3) Abnormal involuntary movement: This patient has a combination of parkinsonism (bradykinesia, rigidity, and intermittent resting tremor as well as a very poor shuffling gait) as well as some dyskinetic movements or even myoclonic jerks. The dyskinetic movements are intermittent and not very severe this morning. I do not see any classic or orofacial or other tardive dyskinetic movements however. Today he is much better than he was with these movements compared to 2 days ago. Risperidone (and previous neuroleptics) could be responsible for most, if not all, of these movements. (4) Chronic cerebral ischemia: Patient has a history of old left cerebellar stroke of a rather large nature as well as chronic cerebral ischemia seen on CT scan. Unfortunately, we cannot get an MRI of the brain because of his pacemaker. He has significant stroke this factors include a longstanding diabetes, hypertension (which is not adequately controlled currently), and dyslipidemia. He is on Xarelto for his history of atrial fibrillation in the past, but not anything to prevent small vessel ischemic disease. He is currently not in atrial fibrillation, since admission. Recommendations: 1. Control blood pressure, trying for a mean arterial pressure of no more than 100. 2. Continue 81 milligram aspirin tablet daily to prevent small vessel ischemic disease 3. Physical and occupational therapy consult. This patient needs at least a walker for support. I am not even sure he can ambulate well even with a walker at this point and may need to be wheelchair bound until he improves. 4. Obviously, from a neurologic standpoint, I would prefer him being off all neuroleptics, but I understand that with his psychosis he needs certain medication. I will defer all psychiatric medication decisions to Psychiatry. 5. I keep off benztropine- I think this may be part of his improvement. I see no reason to start any additional medication today, regarding parkinsonism or abnormal involuntary movements. 6. Treat hypothyroidism if present. 7. I would like to do EMG and nerve conduction study on his legs, but this has to be done as an outpatient. Overall, I spent a total of 25 minutes with this case including review of records, direct evaluation the patient at bedside, and discussion of the case with the patient at bedside, clinical staff, and Dr. Finnegan, including differential diagnosis and treatment options. Subjective Patient feels somewhat calm but has pain in his upper extremities of a stiffness achy variety. His feet have some achy pain in his abdomen occasionally has pain. Patient wants a urinary catheter placed in so he does not have any accidents. He states he cannot feel when he goes. Yesterday he wonders if he had some hallucinations but he has not had any this morning. Nursing reports that he has been calm overnight with no new issues or seizure activity. This morning he is pleasant and cooperative. Blood pressure is elevated at 140 3/100. Physical Exam 2 Vital Signs (Past 24 Hours): Last Vital Signs Temp 36.6 C 11/07/18 07:55 Pulse 70 02/03/19 07:55 Resp 20 11/07/18 07:55 BP 143/100 H 11/07/18 07:55 Pulse Ox 91 11/07/18 07:55 Physical Exam: He is awake and alert. Speech is occasionally mumbling but when he repeats he is intelligible. He has no specific aphasia or dysarthria. His thought pattern seem to be stable and they do not note any overt psychosis. He is not having any hallucinations currently. He knew his name, the fact he was in a hospital, and that it was November. He knew the president. He thought it was November 08 and he thought the year was 2019. On inspection he has no myoclonic jerks or dyskinetic type twitches. He has no resting tremor. He still has a mild masklike face and mild bradykinesia in general. He has minimal rigidity. Strength is symmetrical in the limbs individual muscle testing proximally distally in the arms and legs. He has no ataxia with [id number] testing. He has mild action tremor bilaterally. _ (1) Altered mental status Altered mental status type: unspecified Coma depth: Coma timing: Qualified Code(s): R41.82 - Altered mental status, unspecified
--- NOTE | 2018-11-07 11:58 | Hospitalist Progress Note ---
Date of Service November 07, 2018 Assessment & Plan (1) Weakness: (2) Low back pain: (3) Falls: (4) Altered mental status: (5) SOB (shortness of breath): (6) Hx of CABG: (7) Afib: (8) DM type 2 (diabetes mellitus, type 2): (9) Suicidal ideation: (10) Depression: (11) Pacemaker: (12) Diabetes: (13) Bipolar disorder: 53 yo male with history of bipolar disorder came from inpatient psychiatry at the [facility] admitted on October because of generalized weakness, seems has been improving and stable, Weakness frequent fall, chronic lower back pain intermittently in the legs, no more complain about pain CT lumbar spine shows degenerative disc disease, mild spinal canal narrowing Continue treat for anxiety /agitation , continue PT OT evaluation and treatment and call precaution, Encourage patient to be out of bed to chair, want him to involving PT OT Elevated troponin and EKG was having T wave inversion in 4 5 and 6 upon admission, repeated EKG was totally normalized, denies chest pain, History of CAD CABG, cardiology input appreciated, continue current care, increased the lisinopril for better control of blood pressure History of depression and bipolar, suicidal, psychiatry input appreciated, continue current medication, patient need to have long term placement, currently from the [facility] Has been off one-to-one Afib: rates controlled, continue Metoprolol, continue on Xarelto for stroke prevention Diabetic, will check HbA1c, continue insulin sliding scale, Alcohol dependence: currently have no signs and symptoms of alcohol withdrawal Mild elevated TSH we will repeat tomorrow morning, check today which is getting better, which is possible in the borderline however checked T3-T4, near normal range, GI DVT prophylaxis covered, Possible difficulty in discharge, pending for long term placement, PT OT, up and walk, eating drinking, Subjective no more agitation, seems eating drinking good, conversational,has been off one-to-one sitter, no more Confused, Review of Systems Constitutional: Positive weakness, Respiratory: Occasional cough, no sputum, wheezing, or dyspnea on exertion Cardiac: No chest pain, No orthopnea, No PND, No claudication, No palpitations , Abdomen: No pain, No nausea, No vomiting, No diarrhea, Musculoskeletal: No joint pain, No muscle pain, No swelling, : No dysuria, No urinary frequency, No incontinence, No hematuria Neurologic: No paralysis, mild generalized weakness, No numbness/tingling, Psychiatric: No depression symptoms, No anhedonism Heme: No abnormal bleeding/bruising, No clotting problems, Skin: No rash, No itch, No new/changing skin lesions, No color change, No bleeding Physical Exam 2 Vital Signs (Past 24 Hours): Last Vital Signs Temp 36.6 C 11/07/18 07:55 Pulse 70 11/07/18 07:55 Resp 20 11/07/18 07:55 BP 143/100 H 11/07/18 07:55 Pulse Ox 91 11/07/18 07:55 Physical Exam: General Appearance: Conversational, calm, no agitation, WD/WN, no apparent distress, Eyes: normal inspection, PERRL, EOMI, sclerae normal ENT: normal ENT inspection, hearing grossly normal, pharynx normal Neck: supple, no adenopathy, thyroid normal, no JVD, no carotid bruits, trachea midline Respiratory/Chest: chest non-tender, normal breath sounds, no respiratory distress, no accessory muscle use, breath sounds, rales, wheezing Cardiovascular: regular rate, rhythm, no JVD, no murmur Abdomen: normal bowel sounds, non tender, soft, no organomegaly, Extremities: normal range of motion, non-tender, normal inspection, joint has no limited range of motion, capillary refill is normal, no cyanosis clubbing Neurologic/Psychiatric: Occasional tremor, director camp II-XII nml as tested, no motor/ sensory deficits, alert, normal mood/affect, oriented x 3 Skin: normal color, warm/dry, no rash Lymphatic: no adenopathy _ (1) Altered mental status Altered mental status type: unspecified Coma depth: Coma timing: Qualified Code(s): R41.82 - Altered mental status, unspecified
--- NOTE | 2018-11-07 15:24 | Psychiatric Progress Note ---
Date of Service November 07, 2018 Impression / Recommendations Impression 53 yo male admitted from the [facility] due to falls, primarily weakness. Neurology following. Has been cooperative on floor and able to be taken off 1- on-1 (mainly on due to coming from inpatient psychiatry unit). He is rather non -specific att this time with regards to his early. Received 1 prn Haldol last pm for what sounds like some paranoia about his belongings. He felt they were missing as staff said they didn't have here when true, still secured at the [facility]. He is resting in bed with no evidence of akathisia, tremor minimal at rest, worsens with intention. I'd advise against use of Benadryl for any agitation as anticholinergic can add to confusion. Would use only if significant EPS but defer to primary team. On exam he appears psychiatrically stable for discharge to appropriate level of nursing care/rehab when medically cleared. I would suggest increasing pm Risperdal to 3 mg and will ask primary team to follow-up on Thursday re: any EPS or additional recs. (1) Depression: 11/04 - Depression with psychotic features per [facility] H&P - (2) Alcohol dependence: 11/04 - Tremor could be alcohol related given his chronic abuse and may benefit from a trial of propranolol if the primary team choses. Risk Factors Assessment Male: Yes : Yes Do You Have Access To A Gun?: Yes Health Problems: Yes Mental Health Diagnoses: Yes Substance Use Disorders: Yes Previous Attempt: No Family History of Suicide: No Previous Psychiatric Hospitalization: Yes Hopelessness: No Protective Factors Assessment : No Responsible for Young Children: No Employed: No Stable Relationships: No Supportive Family: No Interval History Chief Complaint "I hope to be transferred closer to home soon. I still get some early at times". Review of Systems Notes without physical complaint at this time other than weakness Subjective Subjective Patient was seen & assessed and interval progress reviewed with liaison nurse. Period of confusion last pm, he denies that he wanted to leave the hospital, just sick of being in bed and was concerned about his belongings. Physical Exam Mental Examination Appearance: Well Groomed Eye Contact: Maintains Eye Contact Motor Behavior: Unremarkable Speech: Normal Mood: Calm Affect: Constricted Thought Process: Linear Thought Content: [place] Hallucinations: None Vital Signs (Past 24 Hours) Last Vital Signs Temp 37.2 C 11/07/18 14:43 Pulse 74 11/07/18 14:43 Resp 20 11/07/18 14:43 BP 125/77 11/07/18 14:43 Pulse Ox 90 11/07/18 14:43 Results & Data Current Inpatient Medications Current Inpatient Medications: Current Inpatient Medications Acetaminophen (Tylenol) 650 mg PO Q4H PRN PRN Reason: pain/fever Stop: 12/03/18 19:06 Aspirin (Ecotrin Ectab) 81 mg PO QAM [facility] Stop: 12/05/18 14:59 Last Admin: 11/07/18 07:53 Dose: 81 mg Atorvastatin Calcium (Lipitor) 40 mg PO HS [facility] Stop: 12/03/18 20:59 Last Admin: 11/06/18 19:08 Dose: 40 mg Chlorpromazine HCl (Thorazine) 100 mg PO Q8H PRN PRN Reason: AGITATION Stop: 12/03/18 19:06 Last Admin: 11/07/18 09:24 Dose: 100 mg [facility]ram [facility] ([facility]) [facility] [place] Stop: 12/04/18 08:59 Last Admin: 11/07/18 07:54 Dose: 40 mg Diphenhydramine HCl (Benadryl) 25 mg IV Q8H PRN PRN Reason: Agitation Stop: 12/06/18 20:08 Last Admin: 11/07/18 09:23 Dose: 25 mg Hydralazine HCl (Hydralazine Hcl) 20 mg IV Q6 PRN PRN Reason: Hypertension Stop: 12/05/18 07:39 Lisinopril (Zestril) [facility] [place] Stop: 12/08/18 08:59 Metoprolol Succinate (Toprol Xl) 100 mg PO [facility] Stop: 12/03/18 20:59 Last Admin: 11/06/18 19:08 Dose: 100 mg Olanzapine (Zyprexa Zydis Od) 5 mg PO BID PRN PRN Reason: a Stop: 12/05/18 20:59 Last Admin: 11/06/18 19:06 Dose: 5 mg Ondansetron HCl (Zofran) 4 mg IV Q6H PRN PRN Reason: Nausea Stop: 12/03/18 19:06 Pantoprazole Sodium (Protonix) 40 mg PO DAILY [facility] Stop: 12/04/18 08:59 Last Admin: 11/07/18 07:54 Dose: 40 mg Risperidone (Risperdal) 3 mg PO QD@16 [facility] Stop: 12/07/18 15:59 Risperidone (Risperdal) [facility] [place] Stop: 12/08/18 08:59 Rivaroxaban (Xarelto) 20 mg PO [facility] Stop: 12/03/18 20:59 Last Admin: 11/06/18 19:08 Dose: 20 mg Tamsulosin HCl (Flomax) 0.4 mg PO [facility] Stop: 12/04/18 08:59 Last Admin: 11/07/18 07:54 Dose: 0.4 mg CPT Code CPT Code 78516
--- NOTE | 2018-11-08 12:19 | Hospitalist Progress Note ---
Date of Service November 08, 2018 Assessment & Plan (1) Weakness: intermittently in the legs strength is 4 out of 5 on examination while in bed will ask PT/OT to evaluate patient needs rehab at SNF working on [employer] process (2) Low back pain: chronic issue cannot get MRI due to pacer CT lumbar spine shows degenerative disc disease, mild spinal canal narrowing continue conservative measures (3) Falls: no falls since admission but he has been weak and legs have given out needs SNF placement (4) Altered mental status: more alert since the time of admission psychiatry following, appreciate their assistance no clear medical etiology, labs stable, CT head normal (5) SOB (shortness of breath): resolved (6) Hx of CABG: no chest pain was ruled out for ACS on last admission on 10/31 continue Lipitor, metoprolol (7) Afib: rates controlled, continue Metoprolol on Xarelto (8) DM type 2 (diabetes mellitus, type 2): diabetic diet hold Metformin Novolog SS (9) Suicidal ideation: resolved, taken off of one on one (10) Depression: (11) Pacemaker: (12) Diabetes: (13) Bipolar disorder: continue chronic medications in form of Benztropine, Chlorpromazine, Risperdal Plan: [employer] process ongoing, can go to SNF once it is completed Subjective patient feeling well, sitting up in the chair admits to weakness, says his knees will just give out he says he wants to go to a SNF, cannot be safe at home currently says he is eating well, no chest pain, no dyspnea appreciate psychiatry notes, reviewed the chart from the previous few days Review of Systems All systems reviewed & are unremarkable except as noted in HPI & below Respiratory: + dyspnea on exertion Cardiovascular: no chest pain Physical Exam 2 Vital Signs (Past 24 Hours): Last Vital Signs Temp 36.4 C L 11/08/18 07:56 Pulse 72 11/08/18 07:56 Resp 18 11/08/18 07:56 BP 126/89 11/08/18 07:56 Pulse Ox 94 11/08/18 07:56 Constitutional: WD/WN, vitals as above + obese Eyes: PERRL, conjunctivae normal, anicteric sclerae ENMT: external ear and nose normal, oropharynx normal Neck: trachea midline, no thyromegaly Respiratory: normal respiratory effort, lungs clear to auscultation Cardiovascular: RRR, no murmur, no edema Gastrointestinal (Abdomen): normal bowel sounds, soft, nontender, no hepatosplenomegaly Musculoskeletal: Head/Neck/Chest: normocephalic, head atraumatic and neck supple Spine: + limited thoraco-lumbar ROM Extremities: extremities normal to inspection Skin: no rashes, warm and dry Neurologic: patellar DTR's 2+ bilat, sensation intact and PERRL, EOMI, accommodation nl, no face palsy, no dysarthria normal touch/pain/ proprioception Psychiatric: Orientation: alert and oriented x 3 Apperance: + disheveled Eye Contact: good eye contact Speech: normal rate/rhythm/volume of speech Lymphatic: no cervical or axillary lymphadenopathy Results & Data Medications Administered Current Inpatient Medications Acetaminophen (Tylenol) 650 mg PO Q4H PRN PRN Reason: pain/fever Stop: 12/03/18 19:06 Aspirin (Ecotrin Ectab) 81 mg PO [facility] Stop: 12/05/18 14:59 Last Admin: 11/08/18 08:04 Dose: 81 mg Atorvastatin Calcium (Lipitor) 40 mg PO [facility] Stop: 12/03/18 20:59 Last Admin: 11/07/18 19:49 Dose: 40 mg Chlorpromazine HCl (Thorazine) 100 mg PO Q8H PRN PRN Reason: AGITATION Stop: 12/03/18 19:06 Last Admin: 11/07/18 09:24 Dose: 100 mg Citalopram Hydrobromide (Celexa) 40 mg PO [facility] Stop: 12/04/18 08:59 Last Admin: 11/08/18 08:03 Dose: 40 mg Diphenhydramine HCl (Benadryl) 25 mg IV Q8H PRN PRN Reason: Agitation Stop: 12/06/18 20:08 Last Admin: 11/07/18 09:23 Dose: 25 mg Hydralazine HCl (Hydralazine Hcl) 20 mg IV Q6 PRN PRN Reason: Hypertension Stop: 12/05/18 07:39 Lisinopril (Zestril) 20 mg PO [facility] Stop: 12/08/18 08:59 Last Admin: 11/08/18 08:03 Dose: 20 mg Metoprolol Succinate (Toprol Xl) 100 mg PO [facility] Stop: 12/03/18 20:59 Last Admin: 11/07/18 19:48 Dose: 100 mg Olanzapine (Zyprexa Zydis Od) 5 mg PO BID PRN PRN Reason: a Stop: 12/05/18 20:59 Last Admin: 11/07/18 17:56 Dose: 5 mg Ondansetron HCl (Zofran) 4 mg IV Q6H PRN PRN Reason: Nausea Stop: 12/03/18 19:06 Pantoprazole Sodium (Protonix) 40 mg PO DAILY [facility] Stop: 12/04/18 08:59 Last Admin: 11/08/18 08:04 Dose: 40 mg Risperidone (Risperdal) 3 mg PO DAILY@1800 [facility] Stop: 12/07/18 17:59 Last Admin: 11/07/18 17:54 Dose: 3 mg [facility]isperidone ([facility]isperdal) [facility] Stop: 12/08/18 08:59 Last Admin: 11/08/18 08:04 Dose: 2 mg Rivaroxaban (Xarelto) 20 mg PO [facility] Stop: 12/03/18 20:59 Last Admin: 11/07/18 19:48 Dose: 20 mg Tamsulosin HCl (Flomax) 0.4 mg PO [facility] Stop: 12/04/18 08:59 Last Admin: 11/08/18 08:04 Dose: 0.4 mg _ (1) Altered mental status Altered mental status type: unspecified Coma depth: Coma timing: Qualified Code(s): R41.82 - Altered mental status, unspecified
--- NOTE | 2018-11-09 15:55 | Hospitalist Progress Note ---
Date of Service November 09, 2018 Assessment & Plan (1) Weakness: intermittently in the legs strength is improved ambulating in the hallway with therapy, using rolling walker will ask PT/OT to evaluate patient needs rehab at SNF working on [employer] process likely here the rest of the week (2) Low back pain: chronic issue cannot get MRI due to pacer CT lumbar spine shows degenerative disc disease, mild spinal canal narrowing continue conservative measures therapy, pain control (3) Falls: no falls since admission but he has been weak and legs have given out needs SNF placement (4) Altered mental status: more alert since the time of admission psychiatry following, appreciate their assistance no clear medical etiology, labs stable, CT head normal (5) SOB (shortness of breath): resolved (6) Hx of CABG: no chest pain was ruled out for ACS on last admission on 10/31 continue Lipitor, metoprolol (7) Afib: rates controlled, continue Metoprolol on Xarelto (8) DM type 2 (diabetes mellitus, type 2): diabetic diet hold Metformin Novolog SS (9) Suicidal ideation: resolved, taken off of one on one (10) Depression: (11) Pacemaker: (12) Diabetes: (13) Bipolar disorder: continue chronic medications in form of Benztropine, Chlorpromazine, Risperdal Plan: [employer] process ongoing, can go to SNF once it is completed Subjective doing better, getting a little stronger walked around the RN station in the early today vitals stable Review of Systems All systems reviewed & are unremarkable except as noted in HPI & below Constitutional: + weakness Musculoskeletal: + back pain Physical Exam 2 Vital Signs (Past 24 Hours): Last Vital Signs Temp 36.8 C 11/09/18 15:34 Pulse 69 11/09/18 15:34 Resp 18 11/09/18 15:34 BP 145/97 H 11/09/18 15:34 Pulse Ox 94 11/09/18 15:34 Constitutional: WD/WN, vitals as above + obese Eyes: PERRL, conjunctivae normal, anicteric sclerae ENMT: external ear and nose normal, oropharynx normal Neck: trachea midline, no thyromegaly Respiratory: normal respiratory effort, lungs clear to auscultation Cardiovascular: RRR, no murmur, no edema Gastrointestinal (Abdomen): normal bowel sounds, soft, nontender, no hepatosplenomegaly Musculoskeletal: Head/Neck/Chest: normocephalic, head atraumatic and neck supple Spine: + limited thoraco-lumbar ROM Extremities: extremities normal to inspection Skin: no rashes, warm and dry Neurologic: patellar DTR's 2+ bilat, sensation intact and PERRL, EOMI, accommodation nl, no face palsy, no dysarthria normal touch/pain/ proprioception Psychiatric: Orientation: alert and oriented x 3 Apperance: + disheveled Eye Contact: good eye contact Speech: normal rate/rhythm/volume of speech Lymphatic: no cervical or axillary lymphadenopathy Results & Data Laboratory Results Laboratory Results - last 24 hr 11/09/18 11:42 POC Glucose 197 H Medications Administered Current Inpatient Medications Acetaminophen (Tylenol) 650 mg PO Q4H PRN PRN Reason: pain/fever Stop: 12/03/18 19:06 Aspirin (Ecotrin Ectab) 81 mg PO [facility] Stop: 12/05/18 14:59 Last Admin: 11/09/18 07:58 Dose: 81 mg Atorvastatin Calcium (Lipitor) 40 mg PO [facility] Stop: 12/03/18 20:59 Last Admin: 11/08/18 20:52 Dose: 40 mg Chlorpromazine HCl (Thorazine) 100 mg PO Q8H PRN PRN Reason: AGITATION Stop: 12/03/18 19:06 Last Admin: 11/08/18 16:52 Dose: 100 mg Citalopram Hydrobromide (Celexa) 40 mg PO [facility] Stop: 12/04/18 08:59 Last Admin: 11/09/18 07:57 Dose: 40 mg Diphenhydramine HCl (Benadryl) 25 mg IV Q8H PRN PRN Reason: Agitation Stop: 12/06/18 20:08 Last Admin: 11/08/18 16:09 Dose: 25 mg Hydralazine HCl (Hydralazine Hcl) 20 mg IV Q6 PRN PRN Reason: Hypertension Stop: 12/05/18 07:39 [facility]) [facility] Stop: 12/08/18 08:59 Last Admin: 11/09/18 07:57 Dose: 20 mg Metoprolol Succinate (Toprol Xl) 100 mg PO [facility] Stop: 12/03/18 20:59 Last Admin: 11/08/18 20:52 Dose: 100 mg Olanzapine (Zyprexa Zydis Od) 5 mg PO BID PRN PRN Reason: a Stop: 12/05/18 20:59 Last Admin: 11/07/18 17:56 Dose: 5 mg Ondansetron HCl (Zofran) 4 mg IV Q6H PRN PRN Reason: Nausea Stop: 12/03/18 19:06 Pantoprazole Sodium (Protonix) 40 mg PO DAILY [facility] Stop: 12/04/18 08:59 Last Admin: 11/09/18 07:57 Dose: 40 mg Risperidone (Risperdal) 3 mg PO DAILY@1800 [facility] Stop: 12/07/18 17:59 Last Admin: 11/08/18 17:36 Dose: 3 mg Risperidone (Risperdal) 2 mg PO QAM [facility] Stop: 12/08/18 08:59 Last Admin: 11/09/18 07:58 Dose: 2 mg Rivaroxaban (Xarelto) 20 mg PO HS [facility] Stop: 12/03/18 20:59 Last Admin: 11/08/18 20:52 Dose: 20 mg Tamsulosin HCl (Flomax) 0.4 mg PO QAM [facility] Stop: 12/04/18 08:59 Last Admin: 11/09/18 07:57 Dose: 0.4 mg _ (1) Altered mental status Altered mental status type: unspecified Coma depth: Coma timing: Qualified Code(s): R41.82 - Altered mental status, unspecified
--- NOTE | 2018-11-10 15:38 | Hospitalist Progress Note ---
Date of Service November 10, 2018 Assessment & Plan (1) Weakness: intermittently in the legs strength is improving every day ambulating in the hallway with therapy, using rolling walker walked three total laps today, could not do that when initially admitted patient needs rehab at SNF working on [employer] process likely here the rest of the week (2) Low back pain: chronic issue cannot get MRI due to pacer CT lumbar spine shows degenerative disc disease, mild spinal canal narrowing continue conservative measures therapy, pain control (3) Falls: no falls since admission but he has been weak and legs have given out needs SNF placement (4) Altered mental status: more alert since the time of admission psychiatry following, appreciate their assistance no clear medical etiology, labs stable, CT head normal mental status at baseline currently (5) SOB (shortness of breath): resolved (6) Hx of CABG: no chest pain was ruled out for ACS on last admission on 10/31 continue Lipitor, metoprolol (7) Afib: rates controlled, continue Metoprolol on Xarelto (8) DM type 2 (diabetes mellitus, type 2): diabetic diet hold Metformin some hyperglycemia today, corrected with Novolog (9) Suicidal ideation: resolved, taken off of one on one (10) Depression: (11) Pacemaker: (12) Diabetes: (13) Bipolar disorder: continue chronic medications in form of Benztropine, Chlorpromazine, Risperdal Plan: [employer] process ongoing, can go to SNF once it is completed talked with CM today, referrals sent out to 3 different SNF locations closer to his home in [facility] Subjective feeling stronger every day walked three times around the RN station hallway today balance is better, using walker eating well no chest pain, no dyspnea mood is stable he is optimistic about his future, says that he wants to move back to [place] once he is strong enough he [place] Review of Systems All systems reviewed & are unremarkable except as noted in HPI & below Constitutional: + weakness Neurologic: + unsteadiness Physical Exam 2 Vital Signs (Past 24 Hours): Last Vital Signs Temp 37.0 C 11/10/18 15:07 Pulse 68 11/10/18 15:07 Resp 18 11/10/18 15:07 BP 125/78 11/10/18 15:07 Pulse Ox 93 11/10/18 15:07 Constitutional: WD/WN, vitals as above + obese Eyes: PERRL, conjunctivae normal, anicteric sclerae ENMT: external ear and nose normal, oropharynx normal Neck: trachea midline, no thyromegaly Respiratory: normal respiratory effort, lungs clear to auscultation Cardiovascular: RRR, no murmur, no edema Gastrointestinal (Abdomen): normal bowel sounds, soft, nontender, no hepatosplenomegaly Musculoskeletal: Head/Neck/Chest: normocephalic, head atraumatic and neck supple Spine: + limited thoraco-lumbar ROM Extremities: extremities normal to inspection Skin: no rashes, warm and dry Neurologic: patellar DTR's 2+ bilat, sensation intact and PERRL, EOMI, accommodation nl, no face palsy, no dysarthria normal touch/pain/ proprioception Psychiatric: Orientation: alert and oriented x 3 Eye Contact: good eye contact Speech: normal rate/rhythm/volume of speech Lymphatic: no cervical or axillary lymphadenopathy Results & Data Laboratory Results Laboratory Results - last 24 hr 11/09/18 11/09/18 11/10/18 16:20 20:22 07:44 POC Glucose 173 H 282 H 158 H 11/10/18 11:38 POC Glucose 281 H Medications Administered Current Inpatient Medications Acetaminophen (Tylenol) 650 mg PO Q4H PRN PRN Reason: pain/fever Stop: 12/03/18 19:06 Aspirin (Ecotrin Ectab) 81 mg PO QAM [facility] Stop: 12/05/18 14:59 Last Admin: 11/10/18 08:04 Dose: 81 mg Atorvastatin Calcium (Lipitor) 40 mg PO HS [facility] Stop: 12/03/18 20:59 Last Admin: 11/09/18 20:57 Dose: 40 mg Chlorpromazine HCl (Thorazine) 100 mg PO Q8H PRN PRN Reason: AGITATION Stop: 12/03/18 19:06 Last Admin: 11/08/18 16:52 Dose: 100 mg Citalopram Hydrobromide (Celexa) 40 mg PO QAM [facility] Stop: 12/04/18 08:59 Last Admin: 11/10/18 08:03 Dose: 40 mg Dextrose (Dextrose 50%) 25 - 50 ml IV UD PRN; Protocol PRN Reason: Hypoglycemia Protocol Stop: 12/10/18 13:07 Diphenhydramine HCl (Benadryl) 25 mg IV Q8H PRN PRN Reason: Agitation Stop: 12/06/18 20:08 Last Admin: 11/08/18 16:09 Dose: 25 mg Glucagon (Glucagen) 1 mg IM UD PRN; Protocol PRN Reason: Hypoglycemia Protocol Stop: 12/10/18 13:07 Glucose (Glucose 40%) 15 - 30 gm PO UD PRN; Protocol PRN Reason: Hypoglycemia Protocol Stop: 12/10/18 13:07 Glucose (Dex4 Glucose) 4 - 8 tabs PO UD PRN; Protocol PRN Reason: Hypoglycemia Protocol Stop: 12/10/18 13:07 Hydralazine HCl (Hydralazine Hcl) 20 mg IV Q6 PRN PRN Reason: Hypertension Stop: 12/05/18 07:39 Insulin Aspart (Novolog Flexpen) 0 units SC ACHS [facility] Stop: 12/10/18 16:29 Last Admin: 11/10/18 13:11 Dose: 4 units Lisinopril (Zestril) 20 mg PO QAM [facility] Stop: 12/08/18 08:59 Last Admin: 11/10/18 08:04 Dose: 20 mg Metoprolol Succinate (Toprol Xl) 100 mg PO HS [facility] Stop: 12/03/18 20:59 Last Admin: 11/09/18 20:58 Dose: 100 mg Miscellaneous (Carbohydrates For Hypoglycemia) 15 - 30 gm PO UD PRN PRN Reason: Hypoglycemia Treatment Stop: 12/10/18 13:07 Olanzapine (Zyprexa Zydis Od) 5 mg PO BID PRN PRN Reason: a Stop: 12/05/18 20:59 Last Admin: 11/07/18 17:56 Dose: 5 mg Ondansetron HCl (Zofran) 4 mg IV Q6H PRN PRN Reason: Nausea Stop: 12/03/18 19:06 Pantoprazole Sodium (Protonix) 40 mg PO DAILY [facility] Stop: 12/04/18 08:59 Last Admin: 11/10/18 08:04 Dose: 40 mg Risperidone (Risperdal) 3 mg PO DAILY@1800 [facility] Stop: 12/07/18 17:59 Last Admin: 11/09/18 17:27 Dose: 3 mg Risperidone (Risperdal) 2 mg PO QAM [facility] Stop: 12/08/18 08:59 Last Admin: 11/10/18 08:04 Dose: 2 mg Rivaroxaban (Xarelto) 20 mg PO HS [facility] Stop: 12/03/18 20:59 Last Admin: 11/09/18 20:57 Dose: 20 mg Tamsulosin HCl (Flomax) 0.4 mg PO QAM [facility] Stop: 12/04/18 08:59 Last Admin: 11/10/18 08:04 Dose: 0.4 mg _ (1) Altered mental status Altered mental status type: unspecified Coma depth: Coma timing: Qualified Code(s): R41.82 - Altered mental status, unspecified
--- NOTE | 2018-11-11 17:25 | Hospitalist Progress Note ---
Date of Service November 11, 2018 Assessment & Plan (1) Weakness: intermittently in the legs strength has improved a lot during admission ambulating in the hallway with therapy, using rolling walker walked three total laps today, could not do that when initially admitted d/w CM, his personal correction would like him to be able to walk up a flight of stairs physical therapy will work with him to achieve this (2) Low back pain: chronic issue cannot get MRI due to pacer CT lumbar spine shows degenerative disc disease, mild spinal canal narrowing continue conservative measures therapy, pain control (3) Falls: no falls since admission but he has been weak and legs have given out needs SNF placement (4) Altered mental status: more alert since the time of admission psychiatry following, appreciate their assistance no clear medical etiology, labs stable, CT head normal mental status at baseline currently (5) SOB (shortness of breath): resolved (6) Hx of CABG: no chest pain was ruled out for ACS on last admission on 10/31 continue Lipitor, metoprolol (7) Afib: rates controlled, continue Metoprolol on Xarelto (8) DM type 2 (diabetes mellitus, type 2): diabetic diet hold Metformin some hyperglycemia today, corrected with Novolog (9) Suicidal ideation: resolved, taken off of one on one (10) Depression: mood is stable (11) Pacemaker: (12) Bipolar disorder: continue chronic medications in form of Benztropine, Chlorpromazine, Risperdal Plan: looking into personal correction Subjective no major issues today, feeling about the same as yesterday waiting on placement discussed with psychiatry, he is stable from their perspective Review of Systems All systems reviewed & are unremarkable except as noted in HPI & below Constitutional: + weakness Musculoskeletal: + back pain Neurologic: + unsteadiness Physical Exam 2 Vital Signs (Past 24 Hours): Last Vital Signs Temp 36.6 C 11/11/18 15:34 Pulse 71 11/11/18 15:43 Resp 18 11/11/18 15:43 BP 128/88 11/11/18 15:43 Pulse Ox 92 11/11/18 15:34 Constitutional: WD/WN, vitals as above + obese Eyes: PERRL, conjunctivae normal, anicteric sclerae ENMT: external ear and nose normal, oropharynx normal Neck: trachea midline, no thyromegaly Respiratory: normal respiratory effort, lungs clear to auscultation Cardiovascular: RRR, no murmur, no edema Gastrointestinal (Abdomen): normal bowel sounds, soft, nontender, no hepatosplenomegaly Musculoskeletal: Head/Neck/Chest: normocephalic, head atraumatic and neck supple Spine: + limited thoraco-lumbar ROM Extremities: extremities normal to inspection and + abnormal strength (4 out of 5 strength in legs bilateral, 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) Skin: no rashes, warm and dry Neurologic: patellar DTR's 2+ bilat, sensation intact and PERRL, EOMI, accommodation nl, no face palsy, no dysarthria normal touch/pain/ proprioception Psychiatric: Orientation: alert and oriented x 3 Apperance: + disheveled Eye Contact: good eye contact Speech: normal rate/rhythm/volume of speech Affect: + flat affect Lymphatic: no cervical or axillary lymphadenopathy Results & Data Medications Administered Current Inpatient Medications Acetaminophen (Tylenol) 650 mg PO Q4H PRN PRN Reason: pain/fever Stop: 12/03/18 19:06 Aspirin (Ecotrin Ectab) 81 mg PO QAM [facility] Stop: 12/05/18 14:59 Last Admin: 11/12/18 08:19 Dose: 81 mg Atorvastatin Calcium (Lipitor) 40 mg PO HS [facility] Stop: 12/03/18 20:59 Last Admin: 11/11/18 20:51 Dose: 40 mg Chlorpromazine HCl (Thorazine) 100 mg PO Q8H PRN PRN Reason: AGITATION Stop: 12/03/18 19:06 Last Admin: 11/11/18 20:53 Dose: 100 mg Citalopram Hydrobromide (Celexa) 40 mg PO QAM [facility] Stop: 12/04/18 08:59 Last Admin: 11/12/18 08:19 Dose: 40 mg Dextrose (Dextrose 50%) 25 - 50 ml IV UD PRN; Protocol PRN Reason: Hypoglycemia Protocol Stop: 12/10/18 13:07 Diphenhydramine HCl (Benadryl) 25 mg IV Q8H PRN PRN Reason: Agitation Stop: 12/06/18 20:08 Last Admin: 11/11/18 20:54 Dose: 25 mg Glucagon (Glucagen) 1 mg IM UD PRN; Protocol PRN Reason: Hypoglycemia Protocol Stop: 12/10/18 13:07 Glucose (Glucose 40%) 15 - 30 gm PO UD PRN; Protocol PRN Reason: Hypoglycemia Protocol Stop: 12/10/18 13:07 Glucose (Dex4 Glucose) 4 - 8 tabs PO UD PRN; Protocol PRN Reason: Hypoglycemia Protocol Stop: 12/10/18 13:07 Hydralazine HCl (Hydralazine Hcl) 20 mg IV Q6 PRN PRN Reason: Hypertension Stop: 12/05/18 07:39 Insulin Aspart (Novolog Flexpen) 0 units SC ACHS [facility] Stop: 12/10/18 16:29 Last Admin: 11/12/18 12:14 Dose: 1 units Lisinopril (Zestril) 20 mg PO QAM [facility] Stop: 12/08/18 08:59 Last Admin: 11/12/18 08:19 Dose: 20 mg Metoprolol Succinate (Toprol Xl) 100 mg PO HS [facility] Stop: 12/03/18 20:59 Last Admin: 11/11/18 20:52 Dose: 100 mg Miscellaneous (Carbohydrates For Hypoglycemia) 15 - 30 gm PO UD PRN PRN Reason: Hypoglycemia Treatment Stop: 12/10/18 13:07 Olanzapine (Zyprexa Zydis Od) 5 mg PO BID PRN PRN Reason: a Stop: 12/05/18 20:59 Last Admin: 11/07/18 17:56 Dose: 5 mg Ondansetron HCl (Zofran) 4 mg IV Q6H PRN PRN Reason: Nausea Stop: 12/03/18 19:06 Pantoprazole Sodium (Protonix) 40 mg PO DAILY [facility] Stop: 12/04/18 08:59 Last Admin: 11/12/18 08:19 Dose: 40 mg Risperidone (Risperdal) 3 mg PO DAILY@1800 [facility] Stop: 12/07/18 17:59 Last Admin: 11/11/18 17:50 Dose: 3 mg Risperidone (Risperdal) 2 mg PO QAM [facility] Stop: 12/08/18 08:59 Last Admin: 11/12/18 08:19 Dose: 2 mg Rivaroxaban (Xarelto) 20 mg PO HS [facility] Stop: 12/03/18 20:59 Last Admin: 11/11/18 20:53 Dose: 20 mg Tamsulosin HCl (Flomax) 0.4 mg PO QAM [facility] Stop: 12/04/18 08:59 Last Admin: 11/12/18 08:19 Dose: 0.4 mg _ (1) Altered mental status Altered mental status type: unspecified Coma depth: Coma timing: Qualified Code(s): R41.82 - Altered mental status, unspecified
--- NOTE | 2018-11-12 16:03 | Hospitalist Progress Note ---
Date of Service November 12, 2018 Assessment & Plan (1) Weakness: intermittently in the legs strength has improved a lot during admission ambulating in the hallway with therapy, using rolling walker walked three total laps today, could not do that when initially admitted d/w CM, his personal fpc would like him to be able to walk up a flight of stairs will see if he can be discharged over the weekend (2) Low back pain: chronic issue cannot get MRI due to pacer CT lumbar spine shows degenerative disc disease, mild spinal canal narrowing continue conservative measures therapy, pain control pain is much better now, intermittently gets sharp (3) Falls: no falls since admission ambulating with walker working on placement in personal fpc (4) Altered mental status: more alert since the time of admission psychiatry following, appreciate their assistance no clear medical etiology, labs stable, CT head normal mental status at baseline currently (5) SOB (shortness of breath): resolved (6) Hx of CABG: no chest pain was ruled out for ACS on last admission on 10/31 continue Lipitor, metoprolol (7) Afib: rates controlled, continue Metoprolol on Xarelto (8) DM type 2 (diabetes mellitus, type 2): diabetic diet hold Metformin some hyperglycemia today, corrected with Novolog (9) Suicidal ideation: resolved, taken off of one on one (10) Depression: mood is stable (11) Pacemaker: (12) Bipolar disorder: continue chronic medications in form of Benztropine, Chlorpromazine, Risperdal Plan: looking into personal fpc Subjective no new issues today had some mild hallucinations yesterday but resolved eating well ambulating in the halls trying to improve strength to ambulate up a flight of stairs Review of Systems All systems reviewed & are unremarkable except as noted in HPI & below Constitutional: + weakness Respiratory: + dyspnea on exertion Musculoskeletal: + back pain Neurologic: + unsteadiness Physical Exam 2 Vital Signs (Past 24 Hours): Last Vital Signs Temp 36.8 C 11/12/18 14:56 Pulse 70 11/12/18 14:56 Resp 20 11/12/18 14:56 BP 101/70 11/12/18 14:56 Pulse Ox 90 11/12/18 14:56 Constitutional: WD/WN, vitals as above + obese Eyes: PERRL, conjunctivae normal, anicteric sclerae ENMT: external ear and nose normal, oropharynx normal Neck: trachea midline, no thyromegaly Respiratory: normal respiratory effort, lungs clear to auscultation Cardiovascular: RRR, no murmur, no edema Gastrointestinal (Abdomen): normal bowel sounds, soft, nontender, no hepatosplenomegaly Musculoskeletal: Head/Neck/Chest: normocephalic, head atraumatic and neck supple Spine: + limited thoraco-lumbar ROM Extremities: extremities normal to inspection Skin: no rashes, warm and dry Neurologic: patellar DTR's 2+ bilat, sensation intact and PERRL, EOMI, accommodation nl, no face palsy, no dysarthria normal touch/pain/ proprioception Psychiatric: Orientation: alert and oriented x 3 Eye Contact: good eye contact Speech: normal rate/rhythm/volume of speech Lymphatic: no cervical or axillary lymphadenopathy Results & Data Medications Administered Current Inpatient Medications Acetaminophen (Tylenol) 650 mg PO Q4H PRN PRN Reason: pain/fever Stop: 12/03/18 19:06 Aspirin (Ecotrin Ectab) 81 mg PO QAM [facility] Stop: 12/05/18 14:59 Last Admin: 11/12/18 08:19 Dose: 81 mg Atorvastatin Calcium (Lipitor) 40 mg PO HS [facility] Stop: 12/03/18 20:59 Last Admin: 11/11/18 20:51 Dose: 40 mg Chlorpromazine HCl (Thorazine) 100 mg PO Q8H PRN PRN Reason: AGITATION Stop: 12/03/18 19:06 Last Admin: 11/11/18 20:53 Dose: 100 mg Citalopram Hydrobromide (Celexa) 40 mg PO QAM [facility] Stop: 12/04/18 08:59 Last Admin: 11/12/18 08:19 Dose: 40 mg Dextrose (Dextrose 50%) 25 - 50 ml IV UD PRN; Protocol PRN Reason: Hypoglycemia Protocol Stop: 12/10/18 13:07 Diphenhydramine HCl (Benadryl) 25 mg IV Q8H PRN PRN Reason: Agitation Stop: 12/06/18 20:08 Last Admin: 11/11/18 20:54 Dose: 25 mg Glucagon (Glucagen) 1 mg IM UD PRN; Protocol PRN Reason: Hypoglycemia Protocol Stop: 12/10/18 13:07 Glucose (Glucose 40%) 15 - 30 gm PO UD PRN; Protocol PRN Reason: Hypoglycemia Protocol Stop: 12/10/18 13:07 Glucose (Dex4 Glucose) 4 - 8 tabs PO UD PRN; Protocol PRN Reason: Hypoglycemia Protocol Stop: 12/10/18 13:07 Hydralazine HCl (Hydralazine Hcl) 20 mg IV Q6 PRN PRN Reason: Hypertension Stop: 12/05/18 07:39 Insulin Aspart (Novolog Flexpen) 0 units SC ACHS [facility] Stop: 12/10/18 16:29 Last Admin: 11/12/18 12:14 Dose: 1 units Lisinopril (Zestril) 20 mg PO QAM [facility] Stop: 12/08/18 08:59 Last Admin: 11/12/18 08:19 Dose: 20 mg Metoprolol Succinate (Toprol Xl) 100 mg PO [facility] Stop: 12/03/18 20:59 Last Admin: 11/11/18 20:52 Dose: 100 mg Miscellaneous (Carbohydrates For Hypoglycemia) 15 - 30 gm PO UD PRN PRN Reason: Hypoglycemia Treatment Stop: 12/10/18 13:07 Olanzapine (Zyprexa Zydis Od) 5 mg PO BID PRN PRN Reason: a Stop: 12/05/18 20:59 Last Admin: 11/07/18 17:56 Dose: 5 mg Ondansetron HCl (Zofran) 4 mg IV Q6H PRN PRN Reason: Nausea Stop: 12/03/18 19:06 Pantoprazole Sodium (Protonix) 40 mg PO DAILY [facility] Stop: 12/04/18 08:59 Last Admin: 11/12/18 08:19 Dose: 40 mg Risperidone (Risperdal) 3 mg PO DAILY@1800 [facility] Stop: 12/07/18 17:59 Last Admin: 11/11/18 17:50 Dose: 3 mg Risperidone (Risperdal) 2 mg PO QAM [facility] Stop: 12/08/18 08:59 Last Admin: 11/12/18 08:19 Dose: 2 mg Rivaroxaban (Xarelto) 20 mg PO HS [facility] Stop: 12/03/18 20:59 Last Admin: 11/11/18 20:53 Dose: 20 mg [facility]amsulosin [facility] ([facility]om[facility]) [facility] [facility] [place]: 12/04/18 08:59 Last Admin: 11/12/18 08:19 Dose: 0.4 mg _ (1) Altered mental status Altered mental status type: unspecified Coma depth: Coma timing: Qualified Code(s): R41.82 - Altered mental status, unspecified
--- NOTE | 2018-11-13 12:59 | Hospitalist Progress Note ---
Date of Service November 13, 2018 Assessment & Plan (1) Weakness: intermittently in the legs strength has improved a lot during admission ambulating in the hallway with therapy, using rolling walker walked three total laps yesterday, could not do that when initially admitted d/w CM, his personal skilled nursing would like him to be able to walk up a flight of stairs will see if he can be discharged early this next week (2) Low back pain: chronic issue cannot get MRI due to pacer CT lumbar spine shows degenerative disc disease, mild spinal canal narrowing continue conservative measures therapy, pain control pain is much better now, intermittently gets sharp pain but short lived (3) Falls: no falls since admission ambulating with walker working on placement in personal skilled nursing (4) Altered mental status: more alert since the time of admission psychiatry following, appreciate their assistance no clear medical etiology, labs stable, CT head normal mental status at baseline currently (5) SOB (shortness of breath): resolved (6) Hx of CABG: no chest pain was ruled out for ACS on last admission on 10/31 continue Lipitor, metoprolol (7) Afib: rates controlled, continue Metoprolol on Xarelto (8) DM type 2 (diabetes mellitus, type 2): diabetic diet hold Metformin some hyperglycemia today, corrected with Novolog (9) Suicidal ideation: resolved, taken off of one on one (10) Depression: mood is stable (11) Pacemaker: (12) Bipolar disorder: continue chronic medications in form of Benztropine, Chlorpromazine, Risperdal Plan: looking into personal skilled nursing Subjective no new issues today, no hallucinations says he ate Cheerios and pancakes for breakfast he is looking forward to fish for lunch continue to ambulate with therapy no real complaints, just wants to be discharged to personal skilled nursing when they will take him Review of Systems All systems reviewed & are unremarkable except as noted in HPI & below Physical Exam 2 Vital Signs (Past 24 Hours): Last Vital Signs Temp 36.8 C 11/13/18 06:30 Pulse 70 11/13/18 06:30 Resp 20 11/13/18 06:30 BP 103/76 11/13/18 06:30 Pulse Ox 93 11/13/18 06:30 Constitutional: WD/WN, vitals as above + obese Eyes: PERRL, conjunctivae normal, anicteric sclerae ENMT: external ear and nose normal, oropharynx normal Neck: trachea midline, no thyromegaly Respiratory: normal respiratory effort, lungs clear to auscultation Cardiovascular: RRR, no murmur, no edema Gastrointestinal (Abdomen): normal bowel sounds, soft, nontender, no hepatosplenomegaly Musculoskeletal: Head/Neck/Chest: normocephalic, head atraumatic and neck supple Extremities: extremities normal to inspection Skin: no rashes, warm and dry Neurologic: patellar DTR's 2+ bilat, sensation intact and PERRL, EOMI, accommodation nl, no face palsy, no dysarthria normal touch/pain/ proprioception Psychiatric: Orientation: alert and oriented x 3 Apperance: + disheveled Eye Contact: good eye contact Speech: normal rate/rhythm/volume of speech Lymphatic: no cervical or axillary lymphadenopathy Results & Data Medications Administered Current Inpatient Medications Acetaminophen (Tylenol) 650 mg PO Q4H PRN PRN Reason: pain/fever Stop: 12/03/18 19:06 Last Admin: 11/12/18 18:58 Dose: 650 mg Aspirin (Ecotrin Ectab) 81 mg PO QAM [facility] Stop: 12/05/18 14:59 Last Admin: 11/13/18 08:06 Dose: 81 mg Atorvastatin Calcium (Lipitor) 40 mg PO HS [facility] Stop: 12/03/18 20:59 Last Admin: 11/12/18 20:54 Dose: 40 mg Chlorpromazine HCl (Thorazine) 100 mg PO Q8H PRN PRN Reason: AGITATION Stop: 12/03/18 19:06 Last Admin: 11/12/18 20:56 Dose: 100 mg Citalopram Hydrobromide (Celexa) 40 mg PO QAM [facility] Stop: 12/04/18 08:59 Last Admin: 11/13/18 08:06 Dose: 40 mg Dextrose (Dextrose 50%) 25 - 50 ml IV UD PRN; Protocol PRN Reason: Hypoglycemia Protocol Stop: 12/10/18 13:07 Diphenhydramine HCl (Benadryl) 25 mg IV Q8H PRN PRN Reason: Agitation Stop: 12/06/18 20:08 Last Admin: 11/12/18 20:56 Dose: 25 mg Glucagon (Glucagen) 1 mg IM UD PRN; Protocol PRN Reason: Hypoglycemia Protocol Stop: 12/10/18 13:07 Glucose (Glucose 40%) 15 - 30 gm PO UD PRN; Protocol PRN Reason: Hypoglycemia Protocol Stop: 12/10/18 13:07 Glucose (Dex4 Glucose) 4 - 8 tabs PO UD PRN; Protocol PRN Reason: Hypoglycemia Protocol Stop: 12/10/18 13:07 Hydralazine HCl (Hydralazine Hcl) 20 mg IV Q6 PRN PRN Reason: Hypertension Stop: 12/05/18 07:39 Insulin Aspart (Novolog Flexpen) 0 units SC ACHS [facility] Stop: 12/10/18 16:29 Last Admin: 11/13/18 12:05 Dose: 2 units Lisinopril (Zestril) 20 mg PO QAM [facility] Stop: 12/08/18 08:59 Last Admin: 11/13/18 08:06 Dose: 20 mg Metoprolol Succinate (Toprol Xl) 100 mg PO HS [facility] Stop: 12/03/18 20:59 Last Admin: 11/12/18 20:54 Dose: 100 mg Miscellaneous (Carbohydrates For Hypoglycemia) 15 - 30 gm PO UD PRN PRN Reason: Hypoglycemia Treatment Stop: 12/10/18 13:07 Olanzapine (Zyprexa Zydis Od) 5 mg PO BID PRN PRN Reason: a Stop: 12/05/18 20:59 Last Admin: 11/07/18 17:56 Dose: 5 mg Ondansetron HCl (Zofran) 4 mg IV Q6H PRN PRN Reason: Nausea Stop: 12/03/18 19:06 Pantoprazole Sodium (Protonix) 40 mg PO DAILY [facility] Stop: 12/04/18 08:59 Last Admin: 11/13/18 08:06 Dose: 40 mg Risperidone (Risperdal) 3 mg PO DAILY@1800 [facility] Stop: 12/07/18 17:59 Last Admin: 11/12/18 18:00 Dose: 3 mg Risperidone (Risperdal) 2 mg PO QAM [facility] Stop: 12/08/18 08:59 Last Admin: 11/13/18 08:07 Dose: 2 mg Rivaroxaban (Xarelto) 20 mg PO HS [facility] Stop: 12/03/18 20:59 Last Admin: 11/12/18 20:54 Dose: 20 mg Tamsulosin HCl (Flomax) 0.4 mg PO QAM [facility] Stop: 12/04/18 08:59 Last Admin: 11/13/18 08:06 Dose: 0.4 mg _ (1) Altered mental status Altered mental status type: unspecified Coma depth: Coma timing: Qualified Code(s): R41.82 - Altered mental status, unspecified
--- NOTE | 2018-11-14 12:31 | Hospitalist Progress Note ---
Date of Service November 14, 2018 Assessment & Plan (1) Weakness: intermittently in the legs strength has improved a lot during admission ambulating in the hallway with therapy, using rolling walker walked three total laps on 11/12, could not do that when initially admitted d/w CM, his personal fpc would like him to be able to walk up a flight of stairs will see if he can be discharged early this next week attempt stairs tomorrow with therapy? (2) Low back pain: chronic issue cannot get MRI due to pacer CT lumbar spine shows degenerative disc disease, mild spinal canal narrowing continue conservative measures therapy, pain control pain is much better now, intermittently gets sharp pain but short lived (3) Falls: no falls since admission ambulating with walker working on placement in personal fpc (4) Altered mental status: more alert since the time of admission psychiatry following, appreciate their assistance no clear medical etiology, labs stable, CT head normal mental status at baseline currently has some intermittent hallucinations and confusion but he is calm, easily redirected, cooperative (5) SOB (shortness of breath): resolved (6) Hx of CABG: no chest pain was ruled out for ACS on last admission on 10/31 continue Lipitor, metoprolol (7) Afib: rates controlled, continue Metoprolol on Xarelto (8) DM type 2 (diabetes mellitus, type 2): diabetic diet hold Metformin monitor for hypoglycemia (9) Suicidal ideation: resolved, taken off of one on one (10) Depression: mood is stable (11) Pacemaker: (12) Bipolar disorder: continue chronic medications in form of Benztropine, Chlorpromazine, Risperdal Plan: looking into personal fpc Subjective patient a little confused today, kept talking about how his bed was messed up said that he needed to get to the other bed in the room so he could walk up the steps explained that he was in his own bed in the hospital he was cooperative, got OOB and into his chair for lunch appetite is excellent, ate all of his breakfast hoping he can walk up steps tomorrow to prove he can go to personal fpc denies pain in lower back no chest pain, no dyspnea Review of Systems All systems reviewed & are unremarkable except as noted in HPI & below Neurologic: + unsteadiness and + generalized weakness Physical Exam 2 Vital Signs (Past 24 Hours): Last Vital Signs Temp 36.7 C 11/14/18 07:27 Pulse 64 11/14/18 07:27 Resp 20 11/14/18 07:27 BP 132/85 11/14/18 07:27 Pulse Ox 95 11/14/18 07:27 Constitutional: WD/WN, vitals as above + obese Eyes: PERRL, conjunctivae normal, anicteric sclerae ENMT: external ear and nose normal, oropharynx normal Neck: trachea midline, no thyromegaly Respiratory: normal respiratory effort, lungs clear to auscultation Cardiovascular: RRR, no murmur, no edema Gastrointestinal (Abdomen): normal bowel sounds, soft, nontender, no hepatosplenomegaly Musculoskeletal: no cyanosis or clubbing, extremities motor strength 5/5 Skin: no rashes, warm and dry Neurologic: patellar DTR's 2+ bilat, sensation intact and PERRL, EOMI, accommodation nl, no face palsy, no dysarthria normal touch/pain/ proprioception Psychiatric: Orientation: alert and oriented x 3 Eye Contact: good eye contact Speech: normal rate/rhythm/volume of speech Lymphatic: no cervical or axillary lymphadenopathy Results & Data Laboratory Results Laboratory Results - last 24 hr 11/13/18 11/13/18 11/14/18 16:48 20:42 07:32 POC Glucose 155 H 192 H 147 H 11/14/18 11:57 POC Glucose 263 H Medications Administered Current Inpatient Medications Acetaminophen (Tylenol) 650 mg PO Q4H PRN PRN Reason: pain/fever Stop: 12/03/18 19:06 Last Admin: 11/12/18 18:58 Dose: 650 mg Aspirin (Ecotrin Ectab) 81 mg PO QAM [facility] Stop: 12/05/18 14:59 Last Admin: 11/14/18 08:07 Dose: 81 mg Atorvastatin Calcium (Lipitor) 40 mg PO HS [facility] Stop: 12/03/18 20:59 Last Admin: 11/13/18 20:45 Dose: 40 mg Chlorpromazine HCl (Thorazine) 100 mg PO Q8H PRN PRN Reason: AGITATION Stop: 12/03/18 19:06 Last Admin: 11/12/18 20:56 Dose: 100 mg Citalopram Hydrobromide (Celexa) 40 mg PO QAM [facility] Stop: 12/04/18 08:59 Last Admin: 11/14/18 08:07 Dose: 40 mg Dextrose (Dextrose 50%) 25 - 50 ml IV UD PRN; Protocol PRN Reason: Hypoglycemia Protocol Stop: 12/10/18 13:07 Diphenhydramine HCl (Benadryl) 25 mg IV Q8H PRN PRN Reason: Agitation Stop: 12/06/18 20:08 Last Admin: 11/12/18 20:56 Dose: 25 mg Glucagon (Glucagen) 1 mg IM UD PRN; Protocol PRN Reason: Hypoglycemia Protocol Stop: 12/10/18 13:07 Glucose (Glucose 40%) 15 - 30 gm PO UD PRN; Protocol PRN Reason: Hypoglycemia Protocol Stop: 12/10/18 13:07 Glucose (Dex4 Glucose) 4 - 8 tabs PO UD PRN; Protocol PRN Reason: Hypoglycemia Protocol Stop: 12/10/18 13:07 Hydralazine HCl (Hydralazine Hcl) 20 mg IV Q6 PRN PRN Reason: Hypertension Stop: 12/05/18 07:39 Insulin Aspart (Novolog Flexpen) 0 units SC ACHS [facility] Stop: 12/10/18 16:29 Last Admin: 11/14/18 08:08 Dose: Not Given Lisinopril (Zestril) 20 mg PO QAM [facility] Stop: 12/08/18 08:59 Last Admin: 11/14/18 08:06 Dose: 20 mg Metoprolol Succinate (Toprol Xl) 100 mg PO HS [facility] Stop: 12/03/18 20:59 Last Admin: 11/13/18 20:45 Dose: 100 mg Miscellaneous (Carbohydrates For Hypoglycemia) 15 - 30 gm PO UD PRN PRN Reason: Hypoglycemia Treatment Stop: 12/10/18 13:07 Olanzapine (Zyprexa Zydis Od) 5 mg PO BID PRN PRN Reason: a Stop: 12/05/18 20:59 Last Admin: 11/07/18 17:56 Dose: 5 mg Ondansetron HCl (Zofran) 4 mg IV Q6H PRN PRN Reason: Nausea Stop: 12/03/18 19:06 Pantoprazole Sodium (Protonix) 40 mg PO DAILY [facility] Stop: 12/04/18 08:59 Last Admin: 11/14/18 08:06 Dose: 40 mg Risperidone (Risperdal) 3 mg PO DAILY@1800 [facility] Stop: 12/07/18 17:59 Last Admin: 11/13/18 17:14 Dose: 3 mg [facility] ([facility]dal) [facility] [place] [place] Stop: 12/08/18 08:59 Last Admin: 11/14/18 08:06 Dose: 2 mg Rivaroxaban (Xarelto) 20 mg PO [facility] Stop: 12/03/18 20:59 Last Admin: 11/13/18 20:45 Dose: 20 mg Tamsulosin HCl (Flomax) [facility] [place] [place] Stop: 12/04/18 08:59 Last Admin: 11/14/18 08:06 Dose: 0.4 mg _ (1) Altered mental status Altered mental status type: unspecified Coma depth: Coma timing: Qualified Code(s): R41.82 - Altered mental status, unspecified
[2018-11-15 06:41] LABS: Hematocrit (blood only) 37.5 % (42-52); Hemoglobin 12.5 g/dL (14.0-18.0); Mean Corpuscular Hgb Conc 33.3 g/dL (32-36); Mean Corpuscular Volume 84.7 fL (80-100); Mean Platelet Volume 9.5 fL (7.4-10.4); Platelet Count 130 K/uL (130-400); RDW Coefficient of Variation 13.4 % (11.5-14.5); Red Blood Count 4.43 M/uL (4.7-6.1); White Blood Count 7.26 K/uL (4.8-10.8)
[2018-11-15 07:09] LABS: BUN Creatinine Ratio 18.9 (10-20); Calcium 8.3 mg/dl (8.5-10.1); Creatinine Clr Calc Pharmacy 106.6 ml/min; Est GFR (African American) 105.5; Potassium 3.9 mmol/L (3.5-5.1)
--- NOTE | 2018-11-16 09:35 | Hospitalist Progress Note ---
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 (2) Low back pain: chronic issue cannot get MRI due to pacer CT lumbar spine shows degenerative disc disease, mild spinal canal narrowing continue conservative measures therapy, pain control pain is much better now, intermittently gets sharp pain but short lived (3) Falls: no falls since admission ambulating with walker working on placement in personal skilled nursing (4) Altered mental status: more alert since the time of admission psychiatry following, appreciate their assistance no clear medical etiology, labs stable, CT head normal mental status at baseline currently has some intermittent hallucinations and confusion but he is calm, easily redirected, cooperative (5) SOB (shortness of breath): resolved (6) Hx of CABG: no chest pain was ruled out for ACS on last admission on 10/31 continue Lipitor, metoprolol (7) Afib: rates controlled, continue Metoprolol on Xarelto (8) DM type 2 (diabetes mellitus, type 2): diabetic diet hold Metformin monitor for hypoglycemia (9) Suicidal ideation: resolved, taken off of one on one (10) Depression: mood is stable (11) Pacemaker: (12) Bipolar disorder: continue chronic medications in form of Benztropine, Chlorpromazine, Risperdal Plan: looking into personal skilled nursing Spent 37 minutes in management of patient. This included reviewing records as patient has been in hospital for over a week. Subjective Patient appears less confused today. Patient reports no new complaints today. He understands that he is awaiting placement. he was cooperative denies pain in lower back no chest pain, no dyspnea Constitutional: + weakness Respiratory: + dyspnea on exertion Musculoskeletal: + back pain Neurologic: + unsteadiness and + generalized weakness Physical Exam 2 Vital Signs (Past 24 Hours): Last Vital Signs Temp 36.8 C 11/15/18 16:06 Pulse 71 11/15/18 16:06 Resp 16 11/15/18 16:06 BP 105/70 11/15/18 16:06 Pulse Ox 93 11/15/18 16:06 Physical Exam: Constitutional: WD/WN, vitals as above + obese Eyes: PERRL, conjunctivae normal, anicteric sclerae ENMT: external ear and nose normal, oropharynx normal Neck: trachea midline, no thyromegaly Respiratory: normal respiratory effort, lungs clear to auscultation Cardiovascular: RRR, no murmur, no edema Gastrointestinal (Abdomen): normal bowel sounds, soft, nontender, no hepatosplenomegaly Musculoskeletal: no cyanosis or clubbing, extremities motor strength 5/5 Skin: no rashes, warm and dry Neurologic: patellar DTR's 2+ bilat, sensation intact and PERRL, EOMI, accommodation nl, no face palsy, no dysarthria normal touch/pain/proprioception Psychiatric: Orientation: alert and oriented x 3 Eye Contact: good eye contact Speech: normal rate/rhythm/volume of speech Lymphatic: no cervical or axillary lymphadenopathy _ (1) Altered mental status Altered mental status type: unspecified Coma depth: Coma timing: Qualified Code(s): R41.82 - Altered mental status, unspecified
--- NOTE | 2018-11-17 10:40 | Hospitalist Progress Note ---
Date of Service November 16, 2018 Assessment & Plan (1) Weakness: intermittently in the legs strength has improved a lot during admission ambulating in the hallway with therapy, using rolling walker walked three total laps on 11/12, could not do that when initially admitted d/w CM, his personal custodial would like him to be able to walk up a flight of stairs will see if he can be discharged early this next week manager audio continues to work on discharge. No change in plan on 11/16 (2) Low back pain: chronic issue cannot get MRI due to pacer CT lumbar spine shows degenerative disc disease, mild spinal canal narrowing continue conservative measures therapy, pain control pain is much better now, intermittently gets sharp pain but short lived (3) Falls: no falls since admission ambulating with walker working on placement in personal custodial (4) Altered mental status: more alert since the time of admission psychiatry following, appreciate their assistance no clear medical etiology, labs stable, CT head normal mental status at baseline currently has some intermittent hallucinations and confusion but he is calm, easily redirected, cooperative (5) SOB (shortness of breath): resolved (6) Hx of CABG: no chest pain was ruled out for ACS on last admission on 10/31 continue Lipitor, metoprolol (7) Afib: rates controlled, continue Metoprolol on Xarelto (8) DM type 2 (diabetes mellitus, type 2): diabetic diet hold Metformin monitor for hypoglycemia (9) Suicidal ideation: resolved, taken off of one on one (10) Depression: mood is stable (11) Pacemaker: (12) Bipolar disorder: continue chronic medications in form of Benztropine, Chlorpromazine, Risperdal Plan: looking into personal custodial Spent 25 minutes in management of patient. Subjective Patient reports no new complaints today. He understands that he is awaiting placement. He continues to remain cooperative Denies pain in lower back No chest pain, no dyspnea. Constitutional: + weakness Respiratory: + dyspnea on exertion Musculoskeletal: + back pain Neurologic: + unsteadiness and + generalized weakness Physical Exam 2 Vital Signs (Past 24 Hours): Last Vital Signs Temp 36.6 C 11/16/18 07:48 Pulse 60 11/16/18 07:48 Resp 20 11/16/18 07:48 BP 127/86 11/16/18 07:48 Pulse Ox 91 11/16/18 07:48 Physical Exam: Constitutional: WD/WN, vitals as above + obese Eyes: PERRL, conjunctivae normal, anicteric sclerae ENMT: external ear and nose normal, oropharynx normal Neck: trachea midline, no thyromegaly Respiratory: normal respiratory effort, lungs clear to auscultation Cardiovascular: RRR, no murmur, no edema Gastrointestinal (Abdomen): normal bowel sounds, soft, nontender, no hepatosplenomegaly Musculoskeletal: no cyanosis or clubbing, extremities motor strength 5/5 Skin: no rashes, warm and dry Neurologic: patellar DTR's 2+ bilat, sensation intact and PERRL, EOMI, accommodation nl, no face palsy, no dysarthria normal touch/pain/proprioception Psychiatric: Orientation: alert and oriented x 3 Eye Contact: good eye contact Speech: normal rate/rhythm/volume of speech Lymphatic: no cervical or axillary lymphadenopathy _ (1) Altered mental status Altered mental status type: unspecified Coma depth: Coma timing: Qualified Code(s): R41.82 - Altered mental status, unspecified
--- NOTE | 2018-11-17 22:43 | Hospitalist Progress Note ---
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 No change in plan on 11/17 (2) Low back pain: chronic issue cannot get MRI due to pacer CT lumbar spine shows degenerative disc disease, mild spinal canal narrowing continue conservative measures therapy, pain control pain is much better now, intermittently gets sharp pain but short lived (3) Falls: no falls since admission ambulating with walker working on placement in personal fpc (4) Altered mental status: more alert since the time of admission psychiatry following, appreciate their assistance no clear medical etiology, labs stable, CT head normal mental status at baseline currently has some intermittent hallucinations and confusion but he is calm, easily redirected, cooperative (5) SOB (shortness of breath): resolved (6) Hx of CABG: no chest pain was ruled out for ACS on last admission on 10/31 continue Lipitor, metoprolol (7) Afib: rates controlled, continue Metoprolol on Xarelto (8) DM type 2 (diabetes mellitus, type 2): diabetic diet hold Metformin monitor for hypoglycemia (9) Suicidal ideation: resolved, taken off of one on one (10) Depression: mood is stable (11) Pacemaker: (12) Bipolar disorder: continue chronic medications in form of Benztropine, Chlorpromazine, Risperdal Plan: looking into personal fpc Subjective Patient reports no new complaints today. Patient appears to be somewhat confused as he wants to make phone calls to social security office. He understands that he is awaiting placement. He continues to remain cooperative Denies pain in lower back No chest pain, no dyspnea. Constitutional: + weakness Eyes: no decreased night vision and no loss of peripheral vision Ear, Nose, Mouth, Throat: no ear trauma and no hyperacusis Respiratory: + dyspnea on exertion Cardiovascular: no dyspnea at rest and no paroxysmal nocturnal dyspnea Gastrointestinal: no bloating and no nausea Genitourinary (Male): no urinary frequency Musculoskeletal: + back pain Neurologic: + unsteadiness and + generalized weakness Psychiatric: no hopelessness and no change in appetite Physical Exam 2 Vital Signs (Past 24 Hours): Last Vital Signs Temp 36.4 C L 11/17/18 15:16 Pulse 72 11/17/18 15:16 Resp 18 11/17/18 15:16 BP 103/69 11/17/18 15:16 Pulse Ox 97 11/17/18 15:16 Physical Exam: Constitutional: WD/WN, vitals as above + obese Eyes: PERRL, conjunctivae normal, anicteric sclerae ENMT: external ear and nose normal, oropharynx normal Neck: trachea midline, no thyromegaly Respiratory: normal respiratory effort, lungs clear to auscultation Cardiovascular: RRR, no murmur, no edema Gastrointestinal (Abdomen): normal bowel sounds, soft, nontender, no hepatosplenomegaly Musculoskeletal: no cyanosis or clubbing, extremities motor strength 5/5 Skin: no rashes, warm and dry Neurologic: patellar DTR's 2+ bilat, sensation intact and PERRL, EOMI, accommodation nl, no face palsy, no dysarthria normal touch/pain/proprioception Psychiatric: Orientation: alert and oriented x 3 Eye Contact: good eye contact Speech: normal rate/rhythm/volume of speech Lymphatic: no cervical or axillary lymphadenopathy _ (1) Altered mental status Altered mental status type: unspecified Coma depth: Coma timing: Qualified Code(s): R41.82 - Altered mental status, unspecified
--- NOTE | 2018-11-18 22:55 | Hospitalist Progress Note ---
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 No change in plan on 11/18 (2) Low back pain: chronic issue cannot get MRI due to pacer CT lumbar spine shows degenerative disc disease, mild spinal canal narrowing continue conservative measures therapy, pain control pain is much better now, intermittently gets sharp pain but short lived (3) Falls: no falls since admission ambulating with walker working on placement in personal mcfp (4) Altered mental status: more alert since the time of admission psychiatry following, appreciate their assistance no clear medical etiology, labs stable, CT head normal mental status at baseline currently has some intermittent hallucinations and confusion but he is calm, easily redirected, cooperative (5) SOB (shortness of breath): resolved (6) Hx of CABG: no chest pain was ruled out for ACS on last admission on 10/31 continue Lipitor, metoprolol (7) Afib: rates controlled, continue Metoprolol on Xarelto (8) DM type 2 (diabetes mellitus, type 2): diabetic diet hold Metformin monitor for hypoglycemia (9) Suicidal ideation: resolved, taken off of one on one (10) Depression: mood is stable (11) Pacemaker: (12) Bipolar disorder: continue chronic medications in form of Benztropine, Chlorpromazine, Risperdal Plan: looking into personal mcfp Subjective Patient reports no new complaints today. He understands that he is awaiting placement. He continues to remain cooperative Denies pain in lower back No chest pain, no dyspnea. Constitutional: + weakness Respiratory: + dyspnea on exertion Musculoskeletal: + back pain Neurologic: + unsteadiness and + generalized weakness Physical Exam 2 Vital Signs (Past 24 Hours): Last Vital Signs Temp 36.7 C 11/18/18 22:51 Pulse 70 11/18/18 22:51 Resp 20 11/18/18 22:51 BP 125/84 11/18/18 22:51 Pulse Ox 95 11/18/18 22:51 Physical Exam: Constitutional: WD/WN, vitals as above + obese Eyes: PERRL, conjunctivae normal, anicteric sclerae ENMT: external ear and nose normal, oropharynx normal Neck: trachea midline, no thyromegaly Respiratory: normal respiratory effort, lungs clear to auscultation Cardiovascular: RRR, no murmur, no edema Gastrointestinal (Abdomen): normal bowel sounds, soft, nontender, no hepatosplenomegaly Musculoskeletal: no cyanosis or clubbing, extremities motor strength 5/5 Skin: no rashes, warm and dry Neurologic: patellar DTR's 2+ bilat, sensation intact and PERRL, EOMI, accommodation nl, no face palsy, no dysarthria normal touch/pain/proprioception Psychiatric: Orientation: alert and oriented x 3 Eye Contact: good eye contact Speech: normal rate/rhythm/volume of speech Lymphatic: no cervical or axillary lymphadenopathy _ (1) Altered mental status Altered mental status type: unspecified Coma depth: Coma timing: Qualified Code(s): R41.82 - Altered mental status, unspecified
--- NOTE | 2018-11-19 20:18 | XRay Report ---
XR chest 2V routine CLINICAL HISTORY: Shortness of breath COMPARISON STUDY: 11/03/2018 FINDINGS: The heart is mildly enlarged. There are postsurgical changes of a midline sternotomy. There is a left subclavian dual-chamber central venous pacemaker. There is no failure. There is no focal p ulmonary consolidation. There are no pleural effusions. A vague density at the right lateral lung bas e, likely relates to overlying chest wall soft tissues. There is no corresponding abnormality in the lateral view. 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 There are scattered air-fluid levels within the visual ized portions of the abdomen[ IMPRESSION: No active disease in the chest. Electronically signed by: Francisco Christine M.D. 11/19/2018 8:16 PM
--- NOTE | 2018-11-20 07:46 | Hospitalist Progress Note ---
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 No change in plan on 11/19 except for whats noticed on SOB problem. (2) Low back pain: chronic issue cannot get MRI due to pacer CT lumbar spine shows degenerative disc disease, mild spinal canal narrowing continue conservative measures therapy, pain control pain is much better now, intermittently gets sharp pain but short lived (3) Falls: no falls since admission ambulating with walker working on placement in personal intermediate (4) Altered mental status: more alert since the time of admission psychiatry following, appreciate their assistance no clear medical etiology, labs stable, CT head normal mental status at baseline currently has some intermittent hallucinations and confusion but he is calm, easily redirected, cooperative (5) SOB (shortness of breath): resolved. However today on 11/19 patient again began complaining of this. I will order a 2 view chest x-ray. Patient does not appear to be SOB. (6) Hx of CABG: no chest pain was ruled out for ACS on last admission on 10/31 continue Lipitor, metoprolol (7) Afib: rates controlled, continue Metoprolol on Xarelto (8) DM type 2 (diabetes mellitus, type 2): diabetic diet hold Metformin monitor for hypoglycemia (9) Suicidal ideation: resolved, taken off of one on one (10) Depression: mood is stable (11) Pacemaker: (12) Bipolar disorder: continue chronic medications in form of Benztropine, Chlorpromazine, Risperdal Plan: looking into personal intermediate Subjective Patient reports no new complaints today. Patient reports having a cough today. And states he is more short of breath. Nurse checked his o2 sat which was 94%. Nurse states that he does not appear to be short of breath, He continues to remain cooperative Denies pain in lower back No chest pain, no dyspnea. Constitutional: + weakness Respiratory: + dyspnea on exertion Musculoskeletal: + back pain Neurologic: + unsteadiness and + generalized weakness Physical Exam 2 Vital Signs (Past 24 Hours): Last Vital Signs Temp 36.5 C 11/19/18 23:46 Pulse 69 11/19/18 23:46 Resp 20 11/19/18 23:46 BP 112/75 11/19/18 23:46 Pulse Ox 95 11/19/18 23:46 Physical Exam: Constitutional: WD/WN, vitals as above + obese Eyes: PERRL, conjunctivae normal, anicteric sclerae ENMT: external ear and nose normal, oropharynx normal Neck: trachea midline, no thyromegaly Respiratory: normal respiratory effort, lungs clear to auscultation Cardiovascular: RRR, no murmur, no edema Gastrointestinal (Abdomen): normal bowel sounds, soft, nontender, no hepatosplenomegaly Musculoskeletal: no cyanosis or clubbing, extremities motor strength 5/5 Skin: no rashes, warm and dry Neurologic: patellar DTR's 2+ bilat, sensation intact and PERRL, EOMI, accommodation nl, no face palsy, no dysarthria normal touch/pain/proprioception Psychiatric: Orientation: alert and oriented x 3 Eye Contact: good eye contact Speech: normal rate/rhythm/volume of speech Lymphatic: no cervical or axillary lymphadenopathy _ (1) Altered mental status Altered mental status type: unspecified Coma depth: Coma timing: Qualified Code(s): R41.82 - Altered mental status, unspecified
--- NOTE | 2018-11-20 08:15 | Hospitalist Progress Note ---
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 No change in plan on 11/20 (2) Low back pain: chronic issue cannot get MRI due to pacer CT lumbar spine shows degenerative disc disease, mild spinal canal narrowing continue conservative measures therapy, pain control pain is much better now, intermittently gets sharp pain but short lived (3) Falls: no falls since admission ambulating with walker working on placement in personal fdc (4) Altered mental status: more alert since the time of admission psychiatry following, appreciate their assistance no clear medical etiology, labs stable, CT head normal mental status at baseline currently has some intermittent hallucinations and confusion but he is calm, easily redirected, cooperative (5) SOB (shortness of breath): resolved. Patient is asymptomatic on 11/20; Chest x ray was negative. Will monitor. (6) Hx of CABG: no chest pain was ruled out for ACS on last admission on 10/31 continue Lipitor, metoprolol (7) Afib: rates controlled, continue Metoprolol on Xarelto (8) DM type 2 (diabetes mellitus, type 2): diabetic diet hold Metformin monitor for hypoglycemia (9) Suicidal ideation: resolved, taken off of one on one (10) Depression: mood is stable (11) Pacemaker: (12) Bipolar disorder: continue chronic medications in form of Benztropine, Chlorpromazine, Risperdal Plan: looking into personal fdc Subjective Patient reports feeling well today. PATIENT DENIES ANY SHORTNESS OF BREATH OR COUGH. Constitutional: + weakness Respiratory: + dyspnea on exertion Musculoskeletal: + back pain Neurologic: + unsteadiness and + generalized weakness Physical Exam 2 Vital Signs (Past 24 Hours): Last Vital Signs Temp 36.7 C 11/20/18 07:00 Pulse 74 11/20/18 07:00 Resp 18 11/20/18 07:00 BP 124/82 11/20/18 07:00 Pulse Ox 94 11/20/18 07:00 Physical Exam: Constitutional: WD/WN, vitals as above + obese Eyes: PERRL, conjunctivae normal, anicteric sclerae ENMT: external ear and nose normal, oropharynx normal Neck: trachea midline, no thyromegaly Respiratory: normal respiratory effort, lungs clear to auscultation Cardiovascular: RRR, no murmur, no edema Gastrointestinal (Abdomen): normal bowel sounds, soft, nontender, no hepatosplenomegaly Musculoskeletal: no cyanosis or clubbing, extremities motor strength 5/5 Skin: no rashes, warm and dry Neurologic: patellar DTR's 2+ bilat, sensation intact and PERRL, EOMI, accommodation nl, no face palsy, no dysarthria normal touch/pain/proprioception Psychiatric: Orientation: alert and oriented x 3 Eye Contact: good eye contact Speech: normal rate/rhythm/volume of speech Lymphatic: no cervical or axillary lymphadenopathy _ (1) Altered mental status Altered mental status type: unspecified Coma depth: Coma timing: Qualified Code(s): R41.82 - Altered mental status, unspecified
--- NOTE | 2018-11-21 08:23 | Hospitalist Progress Note ---
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 No change in plan on 11/21 (2) Low back pain: chronic issue cannot get MRI due to pacer CT lumbar spine shows degenerative disc disease, mild spinal canal narrowing continue conservative measures therapy, pain control pain is much better now, intermittently gets sharp pain but short lived (3) Falls: no falls since admission ambulating with walker working on placement in personal retirement (4) Altered mental status: more alert since the time of admission psychiatry following, appreciate their assistance no clear medical etiology, labs stable, CT head normal mental status at baseline currently has some intermittent hallucinations and confusion but he is calm, easily redirected, cooperative (5) SOB (shortness of breath): resolved. Patient is asymptomatic on 11/20; Chest x ray was negative. Will monitor. (6) Hx of CABG: no chest pain was ruled out for ACS on last admission on 10/31 continue Lipitor, metoprolol (7) Afib: rates controlled, continue Metoprolol on Xarelto (8) DM type 2 (diabetes mellitus, type 2): diabetic diet hold Metformin monitor for hypoglycemia (9) Suicidal ideation: resolved, taken off of one on one (10) Depression: mood is stable (11) Pacemaker: (12) Bipolar disorder: continue chronic medications in form of Benztropine, Chlorpromazine, Risperdal Plan: looking into personal retirement Subjective Patient reports is hallucinating today. He sees a small dog, and the patient states that he crushed the skul of the dog. He grabs the bed sheet and states see, I got him PATIENT DENIES ANY SHORTNESS OF BREATH OR COUGH. Constitutional: + weakness Respiratory: + dyspnea on exertion Musculoskeletal: + back pain Neurologic: + unsteadiness and + generalized weakness Physical Exam 2 Vital Signs (Past 24 Hours): Last Vital Signs Temp 36.6 C 11/21/18 07:00 Pulse 70 11/21/18 07:00 Resp 23 11/21/18 07:00 BP 122/70 11/21/18 07:00 Pulse Ox 97 11/21/18 07:00 Physical Exam: Constitutional: WD/WN, vitals as above + obese Eyes: PERRL, conjunctivae normal, anicteric sclerae ENMT: external ear and nose normal, oropharynx normal Neck: trachea midline, no thyromegaly Respiratory: normal respiratory effort, lungs clear to auscultation Cardiovascular: RRR, no murmur, no edema Gastrointestinal (Abdomen): normal bowel sounds, soft, nontender, no hepatosplenomegaly Musculoskeletal: no cyanosis or clubbing, extremities motor strength 5/5 Skin: no rashes, warm and dry Neurologic: patellar DTR's 2+ bilat, sensation intact and PERRL, EOMI, accommodation nl, no face palsy, no dysarthria normal touch/pain/proprioception Psychiatric: Eye Contact: good eye contact Lymphatic: no cervical or axillary lymphadenopathy _ (1) Altered mental status Altered mental status type: unspecified Coma depth: Coma timing: Qualified Code(s): R41.82 - Altered mental status, unspecified
[2018-11-21 12:14] LABS: Base Excess VBG 1.4 mEq/L; HCO3 VBG 28 mmol/L; PCO2 VBG 50 mmHg (38-50); PO2 VBG 28 mmHg; pH VBG 7.36 (7.36-7.41)
[2018-11-21 12:18] LABS: Oxygen Saturation VBG < 60.0 %
[2018-11-21 12:24] LABS: BUN Creatinine Ratio 19.4 (10-20); Calcium 8.4 mg/dl (8.5-10.1); Creatinine Clr Calc Pharmacy 92.1 ml/min; Est GFR (African American) 88.4; Est GFR (Non-African American) 76.2; Potassium 4.1 mmol/L (3.5-5.1)
--- NOTE | 2018-11-22 09:02 | Hospitalist Progress Note ---
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 (2) Low back pain: chronic issue, clinically much improved cannot get MRI due to pacer CT lumbar spine shows degenerative disc disease, mild spinal canal narrowing continue conservative measures therapy, pain control pain is much better now, intermittently gets sharp pain but short lived (3) Falls: no falls since admission ambulating with walker working on placement in personal alf (4) Altered mental status: more alert since the time of admission psychiatry following, appreciate their assistance no clear medical etiology, labs stable, CT head normal mental status at baseline currently Previously had some intermittent hallucinations and confusion but now he is calm , easily redirected, cooperative (5) SOB (shortness of breath): resolved. Patient is asymptomatic on 11/20; Chest x ray was negative. Will monitor. (6) Hx of CABG: no chest pain was ruled out for ACS on last admission on 10/31 continue Lipitor, metoprolol (7) Afib: rates controlled, continue Metoprolol on Xarelto (8) DM type 2 (diabetes mellitus, type 2): diabetic diet holding Metformin monitor for hypoglycemia (9) Suicidal ideation: resolved, taken off of one on one (10) Depression: mood is stable (11) Pacemaker: (12) Bipolar disorder: continue chronic medications in form of Benztropine, Chlorpromazine, Risperdal Plan: looking into final disposition Subjective Patient was eating lunch when I enter the room he had no focal complaints or problems as his back pain was in good control. He is obviously slow of mentation. He denies any ideas of self-harm. He is agreeable to returning to the [facility] to complete his psychiatric care. Case management is working on facilitating this transition Review of Systems ROS: well nourished well developed. No double vision blurry vision No problems with speech or swallowing No palpitations, chest pain or pressure No Wheezing or breathing issues No abdominal pain nausea vomiting diarrhea changes in appetite or weight No burning urine urine frequency or changes in color No focal joint pain or muscle pain No skin rashes or oral lesions No unusual bruising or bleeding No focused back pain or numbness or loss of strength No new changes in memory or confusion Physical Exam 2 Vital Signs (Past 24 Hours): Last Vital Signs Temp 36.6 C 11/22/18 07:00 Pulse 72 11/22/18 07:00 Resp 18 11/22/18 07:00 BP 128/88 11/22/18 07:00 Pulse Ox 98 11/22/18 07:00 The patient appeared well nourished and normally developed. Vital signs as documented. Head exam is unremarkable. normocephalic, atraumatic Neck is without jugular venous distension, thyromegaly, or lymphademopathy Lungs are clear to auscultation and percussion. Cardiac exam reveals Rhythm is regular. First and second heart sounds normal. Abdominal exam reveals normal bowel sounds, no masses, no organomegaly Extremities are nonedematous and both pedal pulses are present Neurologic exam is A&Ox3, no focal deficits, strength is equal bilateral Psychologically seems bradykinetic but not depressed _ (1) Altered mental status Altered mental status type: unspecified Coma depth: Coma timing: Qualified Code(s): R41.82 - Altered mental status, unspecified
--- NOTE | 2018-11-23 18:23 | Hospitalist Progress Note ---
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 (2) Low back pain: chronic issue, continues to remain improved cannot get MRI due to pacer CT lumbar spine shows degenerative disc disease, mild spinal canal narrowing continue conservative measures therapy, pain control pain is much better now, intermittently gets sharp pain but short lived (3) Falls: no falls since admission ambulating with walker working on placement in personal group home (4) Altered mental status: more alert since the time of admission wonder if polypharmacy played a role psychiatry following, appreciate their assistance no further intervention is planned no clear medical etiology, labs stable, CT head normal mental status at baseline currently no further suicidal reality or hallucinations, now he is calm, easily redirected, cooperative (5) SOB (shortness of breath): resolved. Patient remains asymptomatic; Chest x ray was negative. Will monitor. (6) Hx of CABG: no chest pain was ruled out for ACS on last admission on 10/31 continue Lipitor, metoprolol (7) Afib: Continues to have rates controlled, continue Metoprolol on Xarelto (8) DM type 2 (diabetes mellitus, type 2): diabetic diet Continue holding Metformin monitor for hypoglycemia (9) Suicidal ideation: resolved, taken off of one on one (10) Depression: mood is stable (11) Pacemaker: (12) Bipolar disorder: continue chronic medications in form of Benztropine, Chlorpromazine, Risperdal Plan: looking into final disposition Subjective Patient has no new complaints his back pain is tolerable he denies having feelings of emotional outbursts depression suicidal ideation or hallucinations Review of Systems ROS: well nourished well developed. No double vision blurry vision No problems with speech or swallowing No palpitations, chest pain or pressure No Wheezing or breathing issues No abdominal pain nausea vomiting diarrhea changes in appetite or weight No burning urine urine frequency or changes in color No focal joint pain or muscle pain No skin rashes or oral lesions No unusual bruising or bleeding This is a chronic lower back pain that is sometimes exacerbated by movements No changes in memory or confusion Physical Exam 2 Vital Signs (Past 24 Hours): Last Vital Signs Temp 36.8 C 11/23/18 14:40 Pulse 69 11/23/18 14:40 Resp 18 11/23/18 14:40 BP 114/77 11/23/18 14:40 Pulse Ox 94 11/23/18 14:40 The patient appeared well nourished and normally developed. He has system bradykinetic nature to his movement new speech Vital signs as documented. Head exam is unremarkable. normocephalic, atraumatic Neck is without jugular venous distension, thyromegaly, or lymphademopathy Lungs are clear to auscultation and percussion. Cardiac exam reveals regular rhythm with controlled rate. First and second heart sounds normal. Abdominal exam reveals normal bowel sounds, no masses, no organomegaly Neurologic exam is A&Ox3, Psychologically seems neither anxious or depressed Skin is warm Dry without bruises or lesions _ (1) Altered mental status Altered mental status type: unspecified Coma depth: Coma timing: Qualified Code(s): R41.82 - Altered mental status, unspecified
--- NOTE | 2018-11-24 15:50 | Hospitalist Progress Note ---
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 (2) Low back pain: chronic issue, continues to remain improved cannot get MRI due to pacer CT lumbar spine shows degenerative disc disease, mild spinal canal narrowing continue conservative measures therapy, pain control pain is much better now, intermittently gets sharp pain but short lived (3) Falls: no falls since admission ambulating with walker working on placement in personal fdc (4) Altered mental status: more alert since the time of admission wonder if polypharmacy played a role psychiatry following, appreciate their assistance no further intervention is planned no clear medical etiology, labs stable, CT head normal mental status at baseline currently no further suicidal reality or hallucinations, now he is calm, easily redirected, cooperative (5) SOB (shortness of breath): resolved. Patient remains asymptomatic; Chest x ray was negative. Will monitor. (6) Hx of CABG: no chest pain was ruled out for ACS on last admission on 10/31 continue Lipitor, metoprolol (7) Afib: Continues to have rates controlled, continue Metoprolol on Xarelto (8) DM type 2 (diabetes mellitus, type 2): diabetic diet Continue holding Metformin monitor for hypoglycemia (9) Suicidal ideation: resolved, taken off of one on one (10) Depression: mood is stable (11) Pacemaker: (12) Bipolar disorder: continue chronic medications in form of Benztropine, Chlorpromazine, Risperdal Plan: looking into final disposition Subjective Patient has no new complaints his back pain is tolerable he denies having feelings of emotional outbursts depression suicidal ideation or hallucinations. He remained stable having no complaints or needs at this time awaiting placement Constitutional: + weakness Respiratory: + dyspnea on exertion Musculoskeletal: + back pain Neurologic: + unsteadiness and + generalized weakness Physical Exam 2 Vital Signs (Past 24 Hours): Last Vital Signs Temp 37.0 C 11/24/18 15:36 Pulse 70 11/24/18 15:36 Resp 18 11/24/18 15:36 BP 102/71 11/24/18 15:36 Pulse Ox 95 11/24/18 15:36 Constitutional: well developed and average body habitus Eyes: no conjunctival abnormality and no scleral abnormality Neck: normal visual inspection and trachea midline Respiratory: normal respiratory effort; no respiratory distress Auscultation: lungs clear to auscultation bilaterally Cardiovascular: RRR, no murmur, no edema Gastrointestinal (Abdomen): normal bowel sounds, soft, nontender, no hepatosplenomegaly Musculoskeletal: no cyanosis or clubbing, extremities motor strength 5/5 _ (1) Altered mental status Altered mental status type: unspecified Coma depth: Coma timing: Qualified Code(s): R41.82 - Altered mental status, unspecified
--- NOTE | 2018-11-25 17:25 | Hospitalist Progress Note ---
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 (2) Low back pain: chronic issue, continues to remain improved cannot get MRI due to pacer CT lumbar spine shows degenerative disc disease, mild spinal canal narrowing continue conservative measures therapy, pain control pain is much better now, intermittently gets sharp pain but short lived (3) Falls: no falls since admission ambulating with walker working on placement in personal jail (4) Altered mental status: more alert since the time of admission wonder if polypharmacy played a role psychiatry following, appreciate their assistance no further intervention is planned no clear medical etiology, labs stable, CT head normal mental status at baseline currently no further suicidal reality or hallucinations, now he is calm, easily redirected, cooperative (5) SOB (shortness of breath): resolved. Patient remains asymptomatic; Chest x ray was negative. Will monitor. (6) Hx of CABG: no chest pain was ruled out for ACS on last admission on 10/31 continue Lipitor, metoprolol (7) Afib: Continues to have rates controlled, continue Metoprolol on Xarelto (8) DM type 2 (diabetes mellitus, type 2): diabetic diet Continue holding Metformin monitor for hypoglycemia (9) Suicidal ideation: resolved, taken off of one on one (10) Depression: mood is stable (11) Pacemaker: (12) Bipolar disorder: continue chronic medications in form of Benztropine, Chlorpromazine, Risperdal Plan: looking into final disposition Subjective Patient has no new complaints his back pain is tolerable he denies having feelings of emotional outbursts depression suicidal ideation or hallucinations. He remained stable having no complaints or needs at this time awaiting placement Patient is not any changes in his physical condition he still having some mild anxiety at times Constitutional: + weakness Respiratory: no cough and no dyspnea on exertion Cardiovascular: no chest pain, no dyspnea and no orthopnea Gastrointestinal: no abdominal pain and no belching Genitourinary (Male): no dysuria and no urinary frequency Musculoskeletal: + back pain Integumentary: no rash and no lesions Neurologic: + unsteadiness and + generalized weakness Psychiatric: + behavioral changes and + anxiety Physical Exam 2 Vital Signs (Past 24 Hours): Last Vital Signs Temp 36.3 C L 11/25/18 14:27 Pulse 70 11/25/18 14:27 Resp 20 11/25/18 14:27 BP 104/70 11/25/18 14:27 Pulse Ox 92 11/25/18 14:27 Constitutional: well developed and average body habitus Eyes: no conjunctival abnormality and no scleral abnormality Neck: normal visual inspection and trachea midline Respiratory: normal respiratory effort; no respiratory distress Auscultation: lungs clear to auscultation bilaterally Cardiovascular: RRR, no murmur, no edema Gastrointestinal (Abdomen): normal bowel sounds, soft, nontender, no hepatosplenomegaly Musculoskeletal: no cyanosis or clubbing, extremities motor strength 5/5 _ (1) Altered mental status Altered mental status type: unspecified Coma depth: Coma timing: Qualified Code(s): R41.82 - Altered mental status, unspecified
--- NOTE | 2018-11-26 15:27 | Hospitalist Progress Note ---
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 (2) Low back pain: chronic issue, continues to remain improved cannot get MRI due to pacer CT lumbar spine shows degenerative disc disease, mild spinal canal narrowing continue conservative measures therapy, pain control pain is much better now, intermittently gets sharp pain but short lived (3) Falls: no falls since admission ambulating with walker working on placement in personal [facility] (4) Altered mental status: more alert since the time of admission wonder if polypharmacy played a role psychiatry following, appreciate their assistance no further intervention is planned no clear medical etiology, labs stable, CT head normal mental status at baseline currently no further suicidal reality or hallucinations, now he is calm, easily redirected, cooperative (5) SOB (shortness of breath): resolved. Patient remains asymptomatic; Chest x ray was negative. Will monitor. (6) Hx of CABG: no chest pain was ruled out for ACS on last admission on 10/31 continue Lipitor, metoprolol (7) Afib: Continues to have rates controlled, continue Metoprolol on Xarelto (8) DM type 2 (diabetes mellitus, type 2): diabetic diet Continue holding Metformin monitor for hypoglycemia (9) Suicidal ideation: resolved, taken off of one on one (10) Depression: mood is stable (11) Pacemaker: (12) Bipolar disorder: continue chronic medications in form of Benztropine, Chlorpromazine, Risperdal Plan: looking into final disposition Subjective Good spirits today he is happily but his personal belongings from the [facility] we still struggling with disposition Review of Systems ROS: well nourished well developed. No double vision blurry vision No problems with speech or swallowing No palpitations, chest pain or pressure No Wheezing or breathing issues No abdominal pain nausea vomiting diarrhea changes in appetite or weight No burning urine urine frequency or changes in color No focal joint pain or muscle pain No skin rashes or oral lesions No unusual bruising or bleeding Persistent chronic back pain but no numbness or loss of strength No changes in memory or confusion Physical Exam 2 Vital Signs (Past 24 Hours): Last Vital Signs Temp 36.5 C 11/26/18 08:17 Pulse 69 11/26/18 08:17 Resp 18 11/26/18 08:17 BP 114/77 11/26/18 08:17 Pulse Ox 96 11/26/18 08:17 The patient appeared well nourished and normally developed. Vital signs as documented. Head exam is unremarkable. normocephalic, atraumatic Neck is without jugular venous distension, thyromegaly, or lymphademopathy Lungs are clear to auscultation and percussion. Cardiac exam reveals Rhythm is regular. First and second heart sounds normal. Abdominal exam reveals normal bowel sounds, no masses, no organomegaly Extremities are nonedematous and both pedal pulses are present Neurologic exam is A&Ox3, no focal deficits, strength is equal bilateral Psychologically he continues to exhibit some anxiety and does have some intellectual impairment Skin is warm Dry without bruises or lesions _ (1) Altered mental status Altered mental status type: unspecified Coma depth: Coma timing: Qualified Code(s): R41.82 - Altered mental status, unspecified
--- NOTE | 2018-11-27 13:34 | XRay Report ---
XR chest 2V routine HISTORY: 53 years-old Male eval for pneumonia acute shortness of breath COMPARISON: Chest radiographs 11/19/2017 TECHNIQUE: PA and lateral views of the chest FINDINGS: Cardiac silhouette is enlarged, unchanged. Prior median sternotomy. Several of the sternotomy wires a re fractured. Stable positioning of left subclavian pacer. Lungs are hypoinflated with mild bronchova scular crowding and mild right hemidiaphragmatic elevation. No pneumothorax, pleural effusion or over t pulmonary edema. No focal airspace consolidation to suggest pneumonia. Degenerative changes of the shoulders and spine. IMPRESSION: No acute process. The above report was generated using voice recognition software. It may contain grammatical, syntax o r spelling errors. Electronically signed by: Seymour Paige M.D. 11/27/2018 1:32 PM
--- NOTE | 2018-11-27 17:31 | Hospitalist Progress Note ---
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 (2) Low back pain: chronic issue, continues to remain improved cannot get MRI due to pacer CT lumbar spine shows degenerative disc disease, mild spinal canal narrowing continue conservative measures therapy, pain control pain is much better now, intermittently gets sharp pain but short lived (3) Falls: no falls since admission ambulating with walker working on placement in personal jail (4) Altered mental status: more alert since the time of admission wonder if polypharmacy played a role psychiatry following, appreciate their assistance no further intervention is planned no clear medical etiology, labs stable, CT head normal mental status at baseline currently no further suicidal reality or hallucinations, now he is calm, easily redirected, cooperative (5) SOB (shortness of breath): this returned and was re evaluated with cxr 11/27, negative for infiltration (6) Hx of CABG: no chest pain was ruled out for ACS on last admission on 10/31 continue Lipitor, metoprolol (7) Afib: Continues to have rates controlled, continue Metoprolol on Xarelto (8) DM type 2 (diabetes mellitus, type 2): diabetic diet Continue holding Metformin monitor for hypoglycemia (9) Suicidal ideation: resolved, taken off of one on one (10) Depression: mood is stable (11) Pacemaker: (12) Bipolar disorder: continue chronic medications in form of Benztropine, Chlorpromazine, Risperdal Plan: looking into final disposition Subjective Good spirits today he is happily but his personal belongings from the [facility] we still struggling with disposition Constitutional: + weakness Musculoskeletal: + back pain Neurologic: + unsteadiness and + generalized weakness Psychiatric: + behavioral changes and + anxiety Physical Exam 2 Vital Signs (Past 24 Hours): Last Vital Signs Temp 37.0 C 11/27/18 14:58 Pulse 90 11/27/18 16:01 Resp 16 11/27/18 16:01 BP 108/72 11/27/18 14:58 Pulse Ox 93 11/27/18 16:01 Constitutional: well developed and average body habitus Eyes: no conjunctival abnormality and no scleral abnormality Neck: normal visual inspection and trachea midline Respiratory: normal respiratory effort; no respiratory distress Auscultation: lungs clear to auscultation bilaterally Cardiovascular: RRR, no murmur, no edema Gastrointestinal (Abdomen): normal bowel sounds, soft, nontender, no hepatosplenomegaly Musculoskeletal: no cyanosis or clubbing, extremities motor strength 5/5 _ (1) Altered mental status Altered mental status type: unspecified Coma depth: Coma timing: Qualified Code(s): R41.82 - Altered mental status, unspecified
--- NOTE | 2018-11-28 15:44 | Hospitalist Progress Note ---
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 (2) Low back pain: chronic issue, continues to remain improved cannot get MRI due to pacer CT lumbar spine shows degenerative disc disease, mild spinal canal narrowing continue conservative measures therapy, pain control pain is much better now, intermittently gets sharp pain but short lived (3) Falls: no falls since admission ambulating with walker working on placement in personal penitentiary (4) Altered mental status: more alert since the time of admission wonder if polypharmacy played a role psychiatry following, appreciate their assistance no further intervention is planned no clear medical etiology, labs stable, CT head normal mental status at baseline currently no further suicidal reality or hallucinations, now he is calm, easily redirected, cooperative (5) SOB (shortness of breath): this returned and was re evaluated with cxr 11/27, negative for infiltration (6) Hx of CABG: no chest pain was ruled out for ACS on last admission on 10/31 continue Lipitor, metoprolol (7) Afib: Continues to have rates controlled, continue Metoprolol on Xarelto (8) DM type 2 (diabetes mellitus, type 2): diabetic diet Continue holding Metformin monitor for hypoglycemia (9) Suicidal ideation: resolved, taken off of one on one (10) Depression: mood is stable (11) Pacemaker: (12) Bipolar disorder: continue chronic medications in form of Benztropine, Chlorpromazine, Risperdal Plan: looking into final disposition Subjective Patient feels about his usual state today. He has no breathing problems review of x-ray yesterday by myself shows no changes Constitutional: + weakness Musculoskeletal: + back pain Neurologic: + unsteadiness and + generalized weakness Psychiatric: + behavioral changes and + anxiety Physical Exam 2 Vital Signs (Past 24 Hours): Last Vital Signs Temp 36.8 C 11/28/18 08:00 Pulse 91 H 11/28/18 15:34 Resp 16 11/28/18 15:34 BP 116/84 11/28/18 08:00 Pulse Ox 96 11/28/18 15:34 Constitutional: well developed and average body habitus Eyes: no conjunctival abnormality and no scleral abnormality Neck: normal visual inspection and trachea midline Respiratory: normal respiratory effort; no respiratory distress Auscultation: lungs clear to auscultation bilaterally Cardiovascular: RRR, no murmur, no edema Gastrointestinal (Abdomen): normal bowel sounds, soft, nontender, no hepatosplenomegaly Musculoskeletal: no cyanosis or clubbing, extremities motor strength 5/5 _ (1) Altered mental status Altered mental status type: unspecified Coma depth: Coma timing: Qualified Code(s): R41.82 - Altered mental status, unspecified
--- NOTE | 2018-11-29 23:53 | Hospitalist Progress Note ---
Date of Service November 29, 2018 Assessment & Plan (1) Weakness: 11/29/18 patient has no new changes or problems continues to be awaiting placement improved has been ambulating in the hallways with assistance and rolling walker d/w CM, personal intermediate will take tomorrow, letter signed (2) Low back pain: chronic issue, continues to remain improved cannot get MRI due to pacer CT lumbar spine shows degenerative disc disease, mild spinal canal narrowing continue conservative measures therapy, pain control pain is much better now, intermittently gets sharp pain but short lived (3) Falls: no falls since admission ambulating with walker working on placement in personal intermediate (4) Altered mental status: more alert since the time of admission wonder if polypharmacy played a role psychiatry following, appreciate their assistance no further intervention is planned no clear medical etiology, labs stable, CT head normal mental status at baseline currently no further suicidal reality or hallucinations, now he is calm, easily redirected, cooperative (5) SOB (shortness of breath): this returned and was re evaluated with cxr 11/27, negative for infiltration (6) Hx of CABG: no chest pain was ruled out for ACS on last admission on 10/31 continue Lipitor, metoprolol (7) Afib: Continues to have rates controlled, continue Metoprolol on Xarelto (8) DM type 2 (diabetes mellitus, type 2): diabetic diet Continue holding Metformin monitor for hypoglycemia (9) Suicidal ideation: resolved, taken off of one on one (10) Depression: mood is stable (11) Pacemaker: (12) Bipolar disorder: continue chronic medications in form of Benztropine, Chlorpromazine, Risperdal Plan: looking into final disposition Subjective no new issues today, ready to go back to Personal intermediate arranged for d/c tomorrow discussed plan with 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 of Systems All systems reviewed & are unremarkable except as noted in HPI & below Physical Exam 2 Vital Signs (Past 24 Hours): Last Vital Signs Temp 36.6 C 11/29/18 23:41 Pulse 68 11/29/18 23:41 Resp 20 11/29/18 23:41 BP 114/76 11/29/18 23:41 Pulse Ox 95 11/29/18 23:41 Constitutional: WD/WN, vitals as above + obese Eyes: PERRL, conjunctivae normal, anicteric sclerae ENMT: external ear and nose normal, oropharynx normal Neck: trachea midline, no thyromegaly Respiratory: normal respiratory effort, lungs clear to auscultation Cardiovascular: RRR, no murmur, no edema Gastrointestinal (Abdomen): normal bowel sounds, soft, nontender, no hepatosplenomegaly Musculoskeletal: no cyanosis or clubbing, extremities motor strength 5/5 Head/Neck/Chest: normocephalic, head atraumatic and neck supple Spine: + limited thoraco-lumbar ROM Extremities: extremities normal to inspection and + abnormal strength (4 out of 5 strength in legs bilateral, left customs compliance director strength 4 out of 5) Skin: no rashes, warm and dry Neurologic: patellar DTR's 2+ bilat, sensation intact and PERRL, EOMI, accommodation nl, no face palsy, no dysarthria normal touch/pain/ proprioception Psychiatric: Orientation: alert and oriented x 3 Apperance: + disheveled Eye Contact: good eye contact Speech: normal rate/rhythm/volume of speech Affect: + flat affect Lymphatic: no cervical or axillary lymphadenopathy _ (1) Altered mental status Altered mental status type: unspecified Coma depth: Coma timing: Qualified Code(s): R41.82 - Altered mental status, unspecified
--- NOTE | 2018-11-30 23:30 | Discharge Summary ---
Date of Service November 30, 2018 Admission HPI Per Admitting Provider 53 yo male, who is a non reliable historian, was brought to the hospital from [place] after experiencing multiple falls. He was recently inpatient at [facility] for chest that was found to be non cardiac in nature. Medical conditions include T2D, hypertension, GERD, hx of CABG with pacemaker, severe tremors and neuropathy. From what I gather from the records and and the patient, He was at [facility] for command hallucinations to kill himself and others. He was stabilized and then sent to [place] for a 21 day rehab for chronic alcohol dependence. The patient denies experiencing DT's or withdrawal seizures despite reporting that he had been consuming 30 beers per day and "as much liquor as I could get". From rehab he was sent to a 3/4 house in [facility], and after arrival did not take his meds for 5 days, saying that he couldn't read the labels without his glasses. He once again developed auditory command hallucinations, and was sent to the [facility]. In terms of his tremor, this is noted in the admission note to the [facility] and noted to be long standing. The patient indicates that he has had the tremor for at least months and maybe years. Nothing has made it better or worse. He describes his falls as "my knees give out". He denies dizziness or faintness, mechanical problems (although noted not to be using the walker that he was supposed to be using). He does not believe that the shaking contributed to his falls. He indicates that he had similar falls about 2-3 years ago, but cannot give me an reliable information about that time. Psychiatrically today he says that he remains depressed, but denies SI. He says that the thoughts to hurt his brother in law are much less and only has "a couple". He reports good sleep, but experiences a sensation that the bed is rising up off of the floor that makes him want to avoid laying down. His appetite is "too good". Anxiety is "up" and endorses panic attacks that occur when he thinks about getting out of bed. Today he describes his auditory hallucinations as 2 men and 2 women arguing, but denies that they are commanding him. He also says that he sees " people". He denies problems with anger or that he has ever injured anyone in the past. He is not oriented, thinking that its 2020, almost December, that he is in [facility], and despite being reoriented to hospital and town, cannot remember that he is in a medical facility and will be going back to the [facility] facility. Admission Exam Per Admitting Provider Constitutional: WD/WN, vitals as above + obese Eyes: PERRL, conjunctivae normal, anicteric sclerae ENMT: external ear and nose normal, oropharynx normal Neck: trachea midline, no thyromegaly Respiratory: normal respiratory effort, lungs clear to auscultation Cardiovascular: RRR, no murmur, no edema Gastrointestinal (Abdomen): normal bowel sounds, soft, nontender, no hepatosplenomegaly Musculoskeletal: Head/Neck/Chest: normocephalic, head atraumatic and neck supple Spine: + limited thoraco-lumbar ROM Extremities: extremities normal to inspection and + abnormal strength (4 out of 5 strength in legs bilateral, left sewer digger strength 4 out of 5) Skin: no rashes, warm and dry Neurologic: patellar DTR's 2+ bilat, sensation intact and PERRL, EOMI, accommodation nl, no face palsy, no dysarthria normal touch/pain/proprioception Psychiatric: Orientation: alert and oriented x 3 Apperance: + disheveled Eye Contact: good eye contact Speech: normal rate/rhythm/volume of speech Affect: + flat affect Lymphatic: no cervical or axillary lymphadenopathy Principal Diagnosis Generalized weakness, falls Discharge Exam Constitutional WD/WN, vitals as above + obese Eyes PERRL, conjunctivae normal, anicteric sclerae ENMT external ear and nose normal, oropharynx normal Neck trachea midline, no thyromegaly Respiratory normal respiratory effort, lungs clear to auscultation Cardiovascular RRR, no murmur, no edema Gastrointestinal (Abdomen) normal bowel sounds, soft, nontender, no hepatosplenomegaly Musculoskeletal no cyanosis or clubbing, extremities motor strength 5/5 Head/Neck/Chest: normocephalic, head atraumatic and neck supple Spine: + limited thoraco-lumbar ROM Extremities: extremities normal to inspection Skin no rashes, warm and dry Neurologic patellar DTR's 2+ bilat, sensation intact and PERRL, EOMI, accommodation nl, no face palsy, no dysarthria normal touch/pain/proprioception Psychiatric Orientation: alert and oriented x 3 Eye Contact: good eye contact Speech: normal rate/rhythm/volume of speech Lymphatic no cervical or axillary lymphadenopathy Discharge Data Allergies Allergy/AdvReac Type Severity Reaction Status Date / Time IV CONTRAST Allergy Severe PASSED OUT Uncoded 10/30/18 18:22 Consultations 11/03/18 16:07 ED Decision to Admit Stat 11/03/18 19:07 Consult Case Management - Discharge Planning Routine Consult Psychiatry Routine 11/04/18 10:01 Consult Cardiology Routine 11/04/18 11:50 Consult Neurology Routine Ordered Studies 11/03/18 14:50 CT head/brain wo con Stat 11/03/18 19:07 CT lumbar spine wo con Urgent 11/04/18 14:51 US arterial duplex LE Stat Hospital Course (1) Weakness: 11/29/18 patient has no new changes or problems continues to be awaiting placement improved has been ambulating in the hallways with assistance and rolling walker d/w CM, personal correction will take on 11/30 new scripts sent to pharmacy in [place] for personal correction to administer patient in good spirits, excited about getting out of the hospital no complaints, no issues on day of discharge (2) Low back pain: chronic issue, continues to remain improved cannot get MRI due to pacer CT lumbar spine shows degenerative disc disease, mild spinal canal narrowing continue conservative measures therapy, pain control pain is much better now, intermittently gets sharp pain but short lived (3) Falls: no falls since admission ambulating with walker working on placement in personal correction (4) Altered mental status: more alert since the time of admission wonder if polypharmacy played a role psychiatry following, appreciate their assistance no further intervention is planned no clear medical etiology, labs stable, CT head normal mental status at baseline currently no further suicidal reality or hallucinations, now he is calm, easily redirected, cooperative (5) SOB (shortness of breath): this returned and was re evaluated with cxr 11/27, negative for infiltration (6) Hx of CABG: no chest pain was ruled out for ACS on last admission on 10/31 continue Lipitor, metoprolol (7) Afib: Continues to have rates controlled, continue Metoprolol on Xarelto (8) DM type 2 (diabetes mellitus, type 2): diabetic diet metformin (9) Suicidal ideation: resolved, taken off of one on one (10) Depression: mood is stable (11) Pacemaker: (12) Bipolar disorder: continue chronic medications in form of Chlorpromazine, Risperdal, Olanzapine Total Time Total Time Spent Total Time Spent (In Minutes): 31 minutes Total Time Includes: Examination of the Patient, Discharge Planning and Medication Reconciliation (this took 20 minutes alone due to need to renew all scripts, speak with pharmacist in [place], make changes) Discharge Plan Discharge Items Patient Disposition: Personal Longterm Reason For Visit: WEAKNESS,FALLS Discharge Diagnosis: Weakness, bipolar disorder, lumbar stenosis Condition: Good Discharge Goals: Improve function and Increase independence Activity: Resume your previous activity Lifting: None Bathing: No limitations Exercise/Sports: None Non-emergency contact: Primary Care Provider Call non-emergency contact if: you have any medication questions Diet: Carb Consistent or DM2 Addtl Provider Instructions: Medications: prior medications prescribed again for personal correction New or changed medications: - RISPERDAL: should now be on 2mg in the morning and 3mg at 6pm - OLANZAPINE: take as needed for any hallucinations or delusional thoughts - LISINOPRIL: added for blood pressure control Patient was admitted due to weakness and falls at [place], was there for mental health admission His strength has improved, he has been pleasant and compliant with medications. He will have some occasional hallucinations and/or delusions but easily redirected and cooperative. Has chronic low back pain due to stenosis, will have sharp intermittent pain but resolves quickly. followed by Psychiatry, psych medication changes were made by them, he has tolerated well Prescriptions: New lisinopril 20 mg Tablet 20 mg PO QAM 30 Days Qty: 30 RF: 3 aspirin [Ecotrin Low Strength] 81 mg Tablet,Delayed Release (Dr/Ec) 81 mg PO QAM 30 Days Qty: 30 RF: 0 risperidone 3 mg Tablet 3 mg PO DAILY@1800 30 Days Qty: 30 RF: 3 risperidone 2 mg Tablet 2 mg PO QAM 30 Days Qty: 30 RF: 3 olanzapine 5 mg Tablet,Disintegrating 5 mg PO BID PRN (Reason: agitation) 30 Days Qty: 60 RF: 3 Continued acetaminophen [Tylenol] 325 mg Tablet 650 mg PO Q4H PRN (Reason: Pain) RF: 0 magnesium hydroxide [Milk of Magnesia] 400 mg/5 mL Suspension 30 ml PO DAILY PRN (Reason: Constipation) RF: 0 Mylanta 30 ml PO QID PRN (Reason: Indigestion) RF: 0 atorvastatin 40 mg Tablet 40 mg PO HS 30 Days Qty: 30 RF: 3 citalopram [Celexa] 40 mg Tablet 40 mg PO QAM 30 Days Qty: 30 RF: 3 chlorpromazine 100 mg Tablet 100 mg PO Q8H PRN (Reason: Unknown) 30 Days Qty: 90 RF: 1 metoprolol succinate 100 mg Tablet Extended Release 24 Hr 100 mg PO HS 30 Days Qty: 30 RF: 3 potassium chloride 10 mEq Tablet Extended Release 10 meq PO QAM 30 Days Qty: 30 RF: 3 tamsulosin 0.4 mg Capsule 0.4 mg PO QAM 30 Days Qty: 30 RF: 3 diphenhydramine HCl [Benadryl] 25 mg Capsule 25 mg PO Q8H PRN (Reason: Unknown) 30 Days Qty: 60 RF: 3 omeprazole 20 mg Capsule,Delayed Release(Dr/Ec) 40 mg PO QAM 30 Days Qty: 60 RF: 3 furosemide 20 mg Tablet 20 mg PO QAM 30 Days Qty: 30 RF: 3 metformin 500 mg Tablet Extended Release 24 Hr 1,000 mg PO BID 30 Days Qty: 120 RF: 3 rivaroxaban 20 mg Tablet 20 mg PO HS 30 Days Qty: 30 RF: 3 Discontinued benztropine 0.5 mg Tablet 0.5 mg PO BID RF: 0 sucralfate 1 gram Tablet 1 g PO QID RF: 0 risperidone [Risperdal] 2 mg Tablet 2 mg PO BID RF: 0 metoprolol succinate 50 mg Tablet Extended Release 24 Hr 50 mg PO HS Qty: 0 RF: 0 diphenhydramine HCl 50 mg Capsule 50 mg PO Q8H PRN (Reason: Unknown) RF: 0 Stand-Alone Forms: [facility] Discharge Orders: Discharge Order (Routine); Ordered 11/30/18 Ordered By: Jose Alberto Cantrell Admission Data Admit Date/Time: 11/04/18 15:15 Attending Provider: Jose Alberto Cantrell Admit Provider: Jose Alberto Cantrell Primary Care Provider: Connor Ku Other Providers: Jose Alberto Cantrell ; Radha Pierson ; Cruz Mc ; El Willis ; Ever Waller Service: Medical Other Interventions: Discharge Summary Assessment (RN) Last Done: 11/30/18 09:41 DC Date/Time DO NOT enter until pt leaves facility: 11/30/18 10:45
--- NOTE | 2018-12-01 17:45 | Coding Query ---
CODING QUERY To promote full compliance with coding requirements relating to patient care, provider participation is requested in all cases of construction crew member uncertainty. Please assist us with the question(s) below: Coding Question(s): Patient admitted with weakness/ falls from Personal Care Facility. Neurology consulted. Please document, if known or suspected, the etiology for the falls/weakness. Thanks for your help! Saulo [facility] Physician's Response(s): falls were due to chronic lumbar spinal stenosis causing weakness in legs improved with physical therapy and pain control Principal Diagnosis: "�that condition established after study, to be chiefly responsible for occasioning the admission of the patient to the hospital for care." Co-Existing Principal Diagnosis: "�when two or more diagnoses equally meet the criteria for principal diagnosis as determined by the circumstances of admission, diagnostic work up, and/or therapy provided, and the Alphabetic Index, Tabular List, or another coding guideline does not provide sequencing direction, any one of the diagnoses may be sequenced first." "When the physician has documented what appears to be a current diagnosis in the body of the record, but has not included the diagnosis in the final diagnostic statement, the physician should be asked whether the diagnosis should be added." (Source Coding [facility] 2 QTR90. p3-4) RASHAD
== END 2018-11-30 10:45 | disposition home or self-care (01) ==
LOC: 4W 14:25 → ED 14:25 → SUATTDRO 17:00 → 4W 18:03 → 2N 11-04 10:44 → SUATTDRO 11-04 15:15